=== PATIENT | male | born 1940 | race Caucasian/White ===

== ENCOUNTER 2019-06-15 22:11 | Outpatient (REF) | payer MEDICARE, SELFPAY ==
[2019-06-16 08:39] LABS: Anion Gap 8.9 mmol/L (3-11); BUN 22 mg/dL (7-18); CO2 30.1 mmol/L (21.0-32.0); CREATININE 0.83 mg/dL (0.70-1.30); Calcium 9.1 mg/dL (8.5-10.1); Calculated LDL 106 mg/dL; Chloride 102 mmol/L (98-107); Cholesterol 192 mg/dL (50-200); Glucose 92 mg/dL (70-100); HDL Cholesterol 55 mg/dL (40-60); Potassium 4.3 mmol/L (3.5-5.1); Sodium 141 mmol/L (136-145); Triglyceride 158 mg/dL (30-150)
== END 2019-06-15 22:31 ==
LOC: NCHCN 22:11
PROVIDERS: PCP Internal Medicine; Visit Provider Internal Medicine
DX: I10 Essential (primary) hypertension (principal); Z13.6 Encounter for screening for cardiovascular disorders
CPT/HCPCS: 80048; 80061

== ENCOUNTER 2019-07-04 16:06 | Outpatient (REF) | payer MEDICARE, SELFPAY | END 2019-07-04 16:26 | LOC: NCHCN 16:06 | PROVIDERS: PCP Internal Medicine; Visit Provider Internal Medicine | DX: R31.9 Hematuria, unspecified (principal) | CPT/HCPCS: 87086 ==

== ENCOUNTER 2019-12-30 10:42 | Outpatient (REF) | payer MEDICARE, SELFPAY ==
[2019-12-30 22:11] LABS: Hemoglobin A1C 5.7 % (3.8-5.6)
[2019-12-30 22:18] LABS: Folate 7.4 ng/mL (8.6-20.0); Vitamin B12 592 pg/mL (193-986)
== END 2019-12-30 11:02 ==
LOC: NCHCN 10:42
PROVIDERS: PCP Internal Medicine; Visit Provider Internal Medicine
DX: R73.09 Other abnormal glucose (principal); R41.3 Other amnesia; R26.9 Unspecified abnormalities of gait and mobility
CPT/HCPCS: 82607; 82746; 83036

== ENCOUNTER 2021-01-21 13:18 | Outpatient (REF) | payer MEDICARE, MEDICAID, SELFPAY ==
[2021-01-21 13:34] LABS: Abs Immature Grans 0.02 10^3/uL (0.0-0.06); Absolute Basophil Count 0.02 10^3/uL (0.0-0.2); Absolute Eosinophil Count 0.22 10^3/uL (0.0-0.7); Absolute Lymphocyte Count 1.01 10^3/uL (1.2-3.4); Absolute Monocyte Count 0.31 10^3/uL (0.1-0.8); Basophils % 0.6; Eosinophils % 6.3; HCT 45.6 % (40.0-50.0); HGB 15.1 g/dL (13.5-17.5); Immature Grans % 0.6; Lymphocytes % 28.9; MCHC 33.1 % (32.0-36.0); MCV 90.5 fL (80-95); MPV 10.3 fL (8.0-11.0); Monocytes % 8.9; Neutrophils % 54.7; Nucleated RBC 0 %; Platelet Count 171 10^3/uL (130-400); RBC 5.04 10^6/uL (4.36-5.78); RDW 12.9 % (11.8-14.1); RDW-SD 42.3 fL
[2021-01-21 13:35] LABS: Absolute Neutrophil Count 1.91 10^3/uL (1.2-6.7)
[2021-01-21 14:37] LABS: Anion Gap 10.1 mmol/L (3-11); BUN 19 mg/dL (7-18); CO2 28.9 mmol/L (21.0-32.0); CREATININE 0.9 mg/dL (0.70-1.30); Calcium 9.1 mg/dL (8.5-10.1); Chloride 102 mmol/L (98-107); Glucose 95 mg/dL (74-106); Potassium 4.9 mmol/L (3.5-5.1); Sodium 141 mmol/L (136-145); Vitamin B12 687 pg/mL (193-986)
[2021-01-21 14:43] LABS: Folate > 20.0 ng/mL (8.6-20.0)
== END 2021-01-21 13:19 | disposition home or self-care (01) ==
LOC: NCHCN 13:18
PROVIDERS: PCP Internal Medicine; Visit Provider Internal Medicine
DX: I10 Essential (primary) hypertension (principal); D52.9 Folate deficiency anemia, unspecified
CPT/HCPCS: 80048; 82607; 82746; 85025

== ENCOUNTER 2022-01-30 17:11 | Outpatient (REF) | payer MEDICARE, MEDICAID, SELFPAY ==
[2022-01-30 14:39] LABS: Abs Immature Grans 0.03 10^3/uL (0.0-0.06); Absolute Basophil Count 0.02 10^3/uL (0.0-0.2); Absolute Eosinophil Count 0.12 10^3/uL (0.0-0.7); Absolute Lymphocyte Count 1.28 10^3/uL (1.2-3.4); Absolute Monocyte Count 0.27 10^3/uL (0.1-0.8); Absolute Neutrophil Count 1.95 10^3/uL (1.2-6.7); Basophils % 0.5; Eosinophils % 3.3; HCT 41.5 % (40.0-50.0); HGB 14.6 g/dL (13.5-17.5); Immature Grans % 0.8; Lymphocytes % 34.9; MCH 29.7 pg (27.0-33.0); MCHC 35.2 % (32.0-36.0); MCV 84 fL (80-95); Monocytes % 7.4; Neutrophils % 53.1; Platelet Count 146 10^3/uL (130-400); RBC 4.92 10^6/uL (4.36-5.78); RDW 12.8 % (11.8-14.1); RDW-SD 39.1 fL; WBC 3.67 10^3/uL (4.4-10.8)
[2022-01-30 14:49] LABS: Anion Gap 10.4 mmol/L (3-11); BUN 22 mg/dL (7-18); CO2 28.6 mmol/L (21.0-32.0); CREATININE 1.2 mg/dL (0.70-1.30); Calcium 8.7 mg/dL (8.5-10.1); Chloride 100 mmol/L (98-107); Estimated GFR 58.26 (mL/min/1.73m2); Glucose 116 mg/dL (74-106); Potassium 4.3 mmol/L (3.5-5.1); Sodium 139 mmol/L (136-145)
== END 2022-01-30 17:12 | disposition home or self-care (01) ==
LOC: NCHCN 17:11
PROVIDERS: PCP Internal Medicine; Visit Provider Internal Medicine
DX: I10 Essential (primary) hypertension (principal); D52.9 Folate deficiency anemia, unspecified; R56.9 Unspecified convulsions
CPT/HCPCS: 80048; 85025

== ENCOUNTER 2022-10-17 12:51 | Outpatient (REF) | payer MEDICARE, MEDICAID, SELFPAY ==
[2022-10-17 14:04] LABS: Abs Immature Grans 0.01 10^3/uL (0.0-0.06); Absolute Eosinophil Count 0.07 10^3/uL (0.0-0.7); Absolute Lymphocyte Count 0.82 10^3/uL (1.2-3.4); Absolute Monocyte Count 0.19 10^3/uL (0.1-0.8); Absolute Neutrophil Count 1.18 10^3/uL (1.2-6.7); Eosinophils % 3.1; HCT 42.7 % (40.0-50.0); HGB 14.1 g/dL (13.5-17.5); Immature Grans % 0.4; Lymphocytes % 36.1; MCV 85 fL (80-95); MPV 10.1 fL (8.0-11.0); Monocytes % 8.4; Platelet Count 154 10^3/uL (130-400); RBC 5.03 10^6/uL (4.36-5.78); RDW 13.5 % (11.8-14.1); RDW-SD 42.5 fL; WBC 2.27 10^3/uL (4.4-10.8)
[2022-10-17 15:04] LABS: ALT 16 U/L (16-63); AST 22 U/L (15-37); Albumin 4.2 g/dL (3.4-5.0); Alkaline Phosphatase 63 U/L (46-116); Anion Gap 8.5 mmol/L (3-11); BUN 23 mg/dL (7-18); Bilirubin, Total 0.2 mg/dL (0.2-1.0); CO2 28.5 mmol/L (21.0-32.0); CREATININE 0.9 mg/dL (0.70-1.30); Chloride 101 mmol/L (98-107); Folate 5.9 ng/mL (8.6-20.0); Glucose 99 mg/dL (74-106); Potassium 4.4 mmol/L (3.5-5.1); Sodium 138 mmol/L (136-145); Total Protein 7.8 g/dL (6.4-8.2); Vitamin B12 959 pg/mL (193-986)
== END 2022-10-17 12:52 | disposition home or self-care (01) ==
LOC: NCHCN 12:51
PROVIDERS: PCP Internal Medicine; Visit Provider Internal Medicine
DX: I10 Essential (primary) hypertension (principal)
CPT/HCPCS: 80053; 82607; 82746; 85025

== ENCOUNTER 2023-01-14 11:17 | Outpatient (REF) | payer MEDICARE, MEDICAID, SELFPAY ==
[2023-01-14 16:06] LABS: HCT 43.4 % (40.0-50.0); HGB 14.5 g/dL (13.5-17.5); MCH 28.4 pg (27.0-33.0); MCHC 33.4 % (32.0-36.0); MCV 85 fL (80-95); MPV 9.8 fL (8.0-11.0); Platelet Count 161 10^3/uL (130-400); RBC 5.11 10^6/uL (4.36-5.78); RDW 13.6 % (11.8-14.1); RDW-SD 42.3 fL; WBC 3.98 10^3/uL (4.4-10.8)
[2023-01-14 17:56] LABS: Folate > 20.0 ng/mL (8.6-20.0)
== END 2023-01-14 11:18 | disposition home or self-care (01) ==
LOC: NCHCN 11:17
PROVIDERS: PCP Internal Medicine; Visit Provider Internal Medicine
DX: D52.9 Folate deficiency anemia, unspecified (principal)
CPT/HCPCS: 85027; 82746

== ENCOUNTER 2023-12-14 22:32 | Outpatient (REF) | payer MEDICARE, SELFPAY ==
[2023-12-14 23:30] LABS: Abs Immature Grans 0.03 10^3/uL (0.0-0.06); Absolute Basophil Count 0.01 10^3/uL (0.0-0.2); Absolute Eosinophil Count 0.09 10^3/uL (0.0-0.7); Absolute Lymphocyte Count 1.27 10^3/uL (1.2-3.4); Absolute Monocyte Count 0.33 10^3/uL (0.1-0.8); Absolute Neutrophil Count 1.84 10^3/uL (1.2-6.7); Basophils % 0.3; Eosinophils % 2.5; HCT 36.5 % (40.0-50.0); HGB 12.1 g/dL (13.5-17.5); Immature Grans % 0.8; Lymphocytes % 35.6; MCH 28.7 pg (27.0-33.0); MCHC 33.2 % (32.0-36.0); MCV 87 fL (80-95); MPV 10.7 fL (8.0-11.0); Monocytes % 9.2; Neutrophils % 51.6; Platelet Count 141 10^3/uL (130-400); RBC 4.22 10^6/uL (4.36-5.78); RDW-SD 44.3 fL; WBC 3.57 10^3/uL (4.4-10.8)
[2023-12-14 23:38] LABS: ALT 21 U/L (16-63); AST 17 U/L (15-37); Albumin 3.6 g/dL (3.4-5.0); Alkaline Phosphatase 68 U/L (46-116); Anion Gap 6.7 mmol/L (3-11); BUN 19 mg/dL (7-18); Bilirubin, Total 0.2 mg/dL (0.2-1.0); CO2 31.3 mmol/L (21.0-32.0); CREATININE 0.9 mg/dL (0.70-1.30); Calcium 8.2 mg/dL (8.5-10.1); Chloride 104 mmol/L (98-107); Estimated GFR 85.27 (mL/min/1.73m2); Glucose 119 mg/dL (74-106); Potassium 4.2 mmol/L (3.5-5.1); Sodium 142 mmol/L (136-145); Total Protein 6.9 g/dL (6.4-8.2)
[2023-12-14 23:45] LABS: Hemoglobin A1C 5.7 % (<5.7)
== END 2023-12-14 22:33 | disposition home or self-care (01) ==
LOC: NCHCN 22:32
PROVIDERS: PCP Internal Medicine; Visit Provider Internal Medicine
DX: R73.09 Other abnormal glucose (principal); R56.9 Unspecified convulsions; E46 Unspecified protein-calorie malnutrition
CPT/HCPCS: 80053; 83036; 85025

== ENCOUNTER 2024-01-26 14:59 | Outpatient (REF) | payer MEDICARE, SELFPAY ==
[2024-01-26 17:01] LABS: HGB 12.2 g/dL (13.5-17.5); MCH 28.8 pg (27.0-33.0); MCV 88 fL (80-95); MPV 10.4 fL (8.0-11.0); RBC 4.23 10^6/uL (4.36-5.78); RDW 13.6 % (11.8-14.1); RDW-SD 43.2 fL; Reticulocyte 1.1 % (0.5-2.4); WBC 2.47 10^3/uL (4.4-10.8)
[2024-01-26 17:40] LABS: Anion Gap 3.1 mmol/L (3-11); BUN 13 mg/dL (7-18); CO2 30.9 mmol/L (21.0-32.0); CREATININE 0.9 mg/dL (0.70-1.30); Calcium 8.1 mg/dL (8.5-10.1); Chloride 105 mmol/L (98-107); Estimated GFR 85.27 (mL/min/1.73m2); Ferritin 101 ng/mL (26-388); Glucose 98 mg/dL (74-106); Potassium 3.8 mmol/L (3.5-5.1); Sodium 139 mmol/L (136-145); Vitamin B12 847 pg/mL (193-986)
[2024-01-26 17:52] LABS: Iron 40 ug/dL (65-175); Total Iron Binding Capacity 228 ug/dL (250-450); Transferrin Sat 18 % (20-55)
[2024-01-26 17:53] LABS: Hemoglobin A1C 5.8 % (<5.7)
[2024-01-26 17:59] LABS: Platelet Count 100 10^3/uL (130-400)
[2024-01-26 18:00] LABS: Absolute Basophil Count 0.02 10^3/uL (0.0-0.2); Absolute Eosinophil Count 0.17 10^3/uL (0.0-0.7); Absolute Lymphocyte Count 1.16 10^3/uL (1.2-3.4); Absolute Monocyte Count 0.35 10^3/uL (0.1-0.8); Absolute Neutrophil Count 0.77 10^3/uL (1.2-6.7); Atypical Lymphocytes % 5 %; Bands % 6 %; Diff Comment Manual Differential; RBC Morphology Normal
== END 2024-01-26 15:00 | disposition home or self-care (01) ==
LOC: LBN 14:59
PROVIDERS: PCP Internal Medicine; Visit Provider Internal Medicine
DX: D52.9 Folate deficiency anemia, unspecified (principal)
CPT/HCPCS: 80048; 82607; 82728; 83036; 83540; 83550; 85025; 85045

== ENCOUNTER 2024-02-26 15:45 | Outpatient (REF) | payer MEDICARE, SELFPAY ==
[2024-02-26 16:15] LABS: Abs Immature Grans 0.02 10^3/uL (0.0-0.06); Absolute Eosinophil Count 0.14 10^3/uL (0.0-0.7); Absolute Lymphocyte Count 1.08 10^3/uL (1.2-3.4); Absolute Monocyte Count 0.48 10^3/uL (0.1-0.8); Eosinophils % 3.6 %; HCT 37.8 % (40.0-50.0); HGB 12.5 g/dL (13.5-17.5); Immature Grans % 0.5 %; Lymphocytes % 27.6 %; MCH 28.3 pg (27.0-33.0); MCHC 33.1 % (32.0-36.0); MCV 86 fL (80-95); MPV 9.8 fL (8.0-11.0); Monocytes % 12.2 %; Neutrophils % 56.1 %; Platelet Count 109 10^3/uL (130-400); RBC 4.42 10^6/uL (4.36-5.78); RDW 13.4 % (11.8-14.1); RDW-SD 41.9 fL; WBC 3.92 10^3/uL (4.4-10.8)
== END 2024-02-26 15:46 | disposition home or self-care (01) ==
LOC: NCHCN 15:45
PROVIDERS: PCP Internal Medicine; Visit Provider Internal Medicine
DX: D52.9 Folate deficiency anemia, unspecified (principal)
CPT/HCPCS: 82746; 85025

== ENCOUNTER 2024-02-29 16:22 | Outpatient (REF) | payer MEDICARE, SELFPAY ==
[2024-02-29 15:57] LABS: Folate 13.5 ng/mL (8.6-20.0)
== END 2024-02-29 16:23 | disposition home or self-care (01) ==
LOC: NCHCN 16:22
PROVIDERS: PCP Internal Medicine; Visit Provider Internal Medicine
DX: D52.9 Folate deficiency anemia, unspecified (principal); D61.818 Other pancytopenia
CPT/HCPCS: 82746

== ENCOUNTER 2024-06-06 19:10 | Outpatient (REF) | payer MEDICARE, SELFPAY ==
[2024-06-06 19:12] LABS: Abs Immature Grans 0.02 10^3/uL (0.0-0.06); Absolute Basophil Count 0.02 10^3/uL (0.0-0.2); Absolute Eosinophil Count 0.16 10^3/uL (0.0-0.7); Absolute Lymphocyte Count 1.31 10^3/uL (1.2-3.4); Absolute Neutrophil Count 1.92 10^3/uL (1.2-6.7); Basophils % 0.5 %; Eosinophils % 4.2 %; HCT 39.9 % (40.0-50.0); Immature Grans % 0.5 %; Lymphocytes % 34.2 %; MCH 28.6 pg (27.0-33.0); MCHC 32.6 % (32.0-36.0); MCV 88 fL (80-95); MPV 10.7 fL (8.0-11.0); Monocytes % 10.4 %; Neutrophils % 50.2 %; Platelet Count 141 10^3/uL (130-400); RBC 4.55 10^6/uL (4.36-5.78); RDW 13.6 % (11.8-14.1); RDW-SD 43.6 fL; WBC 3.83 10^3/uL (4.4-10.8)
--- OUTSIDE RECORDS SUMMARY | 2024-06-06 19:13 | XMS_ITS | Encounter Summary ---
Author Organization [facility] Address [address] [place] [address] Care Team Providers Care Track Watchman Name Role Phone John Cee MD Primary Care Provider Unav ailable Reason for Visit * Reason Onset Date Comments Other 01/13/2018 Encounter Details Date Type Department Care Team (Late st Contact Info) Description 01/13/2018 Refill [facility] Ophthalmology - [id number] [place] [address] Eduardo Ha MD [address] [facility], [facility] [address] [place] [phone] Other Social History Tobacco Use Types Packs/Day Years Used Date Smoking Tobacco: Former Cigarettes 0 02/28/1991 - 02/28/2011 Smokeless Tobacco: Never Alcohol Use Standard Drinks/Week Comments No 0 (1 standard drink = 0.6 oz pur e alcohol) Sex and Gender Information Value Date Recorded Sex Assigned at Not on file Gender Identity Not on file Sexual Orientation Not on file documented as of this encounter Functional Status Cognitive Status Response Date of Assessm ent Because of a physical, menta l, or emotional condition, do you have serious difficulty concentrating, remembering, or making decisions? (5 years old or older) Yes 02/11/2012 documented as of this encounter Ordered Prescriptions Prescription Sig Dispensed Refills Start Date End Da te acetaZOLAMIDE (DIAMOX) 250 mg tablet Take 500 mg now and take 500 mg again at 700 pm. 4 Tab 01/14/2018 01/14/2018 documented in this encounter Miscellaneous Notes * Telephone Encounter - Luis Enrique Hollis RN - 01/13/2018 1432 EDT Called [facility] in [place]. Called in 500 mg now and 500 mg for 7pm tonight. Called patient. Stated we had called in the RX to the [facility] in [place]. I was not rebecca about directions so I gave him the phone number. Also went of directions of the Diamox stating her needed to take 2 tables now and 2 tablets again at 7pm. He voiced understanding. Did mention that Dr Ha would make changes if needed at tomorrow visit. Patient was not aware of visit tomorrow. Did tell patient his appointment was at 1015 and this was an urgent matter. Did ask if he had any other questions. He said no and had stated he would be there at tomorrows appointment. * Telephone Encounter - Luis Enrique Hollis RN - 01/13/2018 1406 EDT Called [facility] in [place] and they do not have any in stock but they told me that the [facility] had some. * Telephone Encounter - Patience Mann - 01/13/[address] Ramírez is calling to talk to Dr. Ha, Dr. Ha is in the OR today. Dr. Ramírez said patient had anti vgef injection with Lyn on Thursday. IOP in 50's today, when patient sees us his IOP is usually in the low 30s, patient is CF's with us at 4'. Called Dr. Ha, per Dr. Ha he can see patient tomorrow morning, and to start diamox tonight. 500mg once now and 500 mg around [address] Ramírez wants patient to be seen today he should follow up with Dr. Nicholson. Spoke to Dr. Ramírez and he will have patient come in tomorrow to see Dr. Ha. Dr. Ramírez wasn't sure if he could prescribe and per Dr. Ha if that's the case we can call it in. Please call in Diamox 500 mg once NOW and once at 7PM, per Luis Enrique HERNANDEZ okay to do so. * Telephone Encounter - Renetta Malone - 01/13/2018 1327 EDT Patient has a pressure of 50 today. He is status post injection. Call was transferred to Patience. documented in this encounter Plan of Treatment Not on file documented as of this encounter Visit Diagnoses Not on filedocumented in this encounter Care Teams Track Watchman Relationship Specialty Start Date End Date John Cee MD PCP - General 06/07/15 documented as of this encounter
--- OUTSIDE RECORDS SUMMARY | 2024-06-06 19:13 | XMS_ITS | Encounter Summary ---
Author Organization [facility] Address [address] [place] [address] Care Team Providers Care Machine Feeder Name Role Phone John Cee MD Primary Care Provider Unav ailable Reason for Visit * Reason Onset Date Comments Medications Refill 11/23/2017 Brimonidine, Dorzolanide, and Latauoprost 2 bottle if posible. Encounter Details Date Type Department Care Team (Late st Contact Info) Description 11/23/2017 Refill [facility] Ophthalmology - [id number] [place] [address] Eduardo Ha MD 111 [facility], [facility] [address] [place] [address] Medications Refill (Brimonidine, Dorzolanide, and Latauoprost 2 bottle if posible. ) Social History Tobacco Use Types Packs/Day Years [...] Dispensed Refills Start Date End Da te latanoprost (XALATAN) 0.005 % ophthalmic solution Place 1 Drop into the left eye at bedtime. 2 Bottle 5 11/24/2017 01/14/2018 dorzolamide-timolol (COSOPT) 22.3-6.8 mg/mL ophthalmic solution Place 1 Drop into the left eye 2 times daily. 2 Bottle 5 11/24/2017 01/14/2018 brimonidine (ALPHAGAN) 0.2 % ophthalmic solution Place 1 Drop into the left eye 2 times daily. 2 Bottle 5 11/24/2017 01/14/2018 documented in this encounter Miscellaneous Notes * Telephone Encounter - Gutierrez Greco OTA - 11/23/2017 0984 EDT Reached pt on fourth attempt. Pt requests all gtts be re-prescribed 2 bottles at a time. Dorzolamide Timolol was ordered with 11 refills on 08/26/2017. Latanoprost with 11 refills ordered 10/06/2017. The only refill needed is for Brimonidine. If he wants multiple bottles at once, all Rx can be re-ordered in amounts he is requesting. Want to confirm with pt that's what he wants to do, and to let him know that many insurance will often cover up to 3 bottles at a time. According to Dr. Ha's last note: dorz-champ BID OS, brim BID OS, latan QHS OS. documented in this encounter Plan of Treatment Not on file documented as of this encounter Visit Diagnoses Not on filedocumented in this encounter Discontinued Medications Medication Sig Discontinue Reason Start Date End Da te brimonidine (ALPHAGAN) 0.2 % ophthalmic solution Place 1 Drop into the left eye 2 times daily. Dose adjustment 08/27/2017 11/24/2017 dorzolamide-timolol (COSOPT) 22.3-6.8 mg/mL ophthalmic solution Place 1 Drop into the left eye 2 times daily. Dose adjustment 08/26/2017 11/24/2017 latanoprost (XALATAN) 0.005 % ophthalmic solution Place 1 Drop into the left eye at bedtime. Dose adjustment 10/06/2017 11/24/2017 documented as of this encounter Care Teams Machine Feeder Relationship Specialty Start Date End Date John Cee MD PCP - General 06/07/15 documented as of this encounter
--- OUTSIDE RECORDS SUMMARY | 2024-06-06 19:13 | XMS_ITS | Encounter Summary ---
Author Organization [facility] Address [address] [place] [address] Care Team Providers Care Poultry Dressing Worker Name Role Phone John Cee MD Primary Care Provider Unav ailable Encounter Details Date Type Department Care Team (Late st Contact Info) Description 02/20/2020 Lab Requisition [facility] Pathology & Laboratory Medicine - [address] [id number] Outr Resulting Lab, Provider Social History Tobacco Use Types Packs/Day Years [...] Yes 02/11/2012 documented as of this encounter Plan of Treatment Not on file documented as of this encounter Procedures Procedure Name Priority Date/Time Associated Diagnosis Comments VITAMIN B12 Routine 02/20/2020 12:23 EDT documented in this encounter Results * VITAMIN B12 (02/20/2020 12:23 EDT) Vitamin B12 703 211 - 911 pg/mL 02/21/2020 9:22 EDT [facility] Blood VENOUS BLOOD / Unknown 02/20/2020 12:23 EDT 02/20/2020 22:13 EDT Provider Outr Resulting Lab CHEMISTRY & BLOOD GAS ORDERABLES [facility] [address] [place] [address] documented in this encounter Visit Diagnoses Not on filedocumented in this encounter Care Teams Poultry Dressing Worker Relationship Specialty Start Date End Date John Cee MD PCP - General 06/07/15 documented as of this encounter
--- OUTSIDE RECORDS SUMMARY | 2024-06-06 19:13 | XMS_ITS | Encounter Summary ---
Author Organization [facility] Address [address] [place] [address] Care Team Providers Care Chuck Tender Name Role Phone John Cee MD Primary Care Provider Unav ailable Reason for Visit * Reason Onset Date Comments Other 01/27/2019 Encounter Details Date Type Department Care Team (Late st Contact Info) Description 01/27/2019 Telephone [phone] [place], [place] [phone] Eduardo Ha MD [address] [place] [address], [facility] [address] [place] [address] Other Social History Tobacco Use Types Packs/Day [...] Yes 02/11/2012 documented as of this encounter Miscellaneous Notes * Telephone Encounter - Renetta Malone - 01/27/2019 0956 EDT Called to confirm we received the fax they sent this morning. Jojo said it was received and will bescanned. They also wanted Dr. Ha to know that Dr. Ramírez is happy to see the patient at any time, even sooner than the 4-5 month follow up. documented in this encounter Plan of Treatment Not on file documented as of this encounter Visit Diagnoses Not on filedocumented in this encounter Care Teams Chuck Tender Relationship Specialty Start Date End Date John Cee MD PCP - General 06/07/15 documented as of this encounter
--- OUTSIDE RECORDS SUMMARY | 2024-06-06 19:13 | XMS_ITS ---
Author Organization Unknown Address [address] [place] [phone] Phone Care Team Providers Care Cellophane Tester Name Role Phone SOPHIE Candelaria Attending Unavailable Results CT HEAD WO CONTRAST - Comple jeri: 04/29/2024 13:33 LOINC: RADIOLOGY [place], [place] [address] RADIOLOGY FOOD PREP WORKER REPORT Patient Name: CATERINA LEDEZMA MRN: Sex: : Age: [id number] M [id number] Account: Accession: Admit: StayType: [id number] 04/29/2024 O Ordered: Order ID: Submitted: Ordering Provider: 04/29/2024 13:06 [id number] [facility] Completed: Technologist: Resulted: 04/29/2024 13:13 LAWRENCE 04/29/2024 14:16 EXAMINATION: CT HEAD WO CONTRAST CLINICAL HISTORY: Reason for Head: HALLUCINATIONS Add'l Info: TECHNIQUE: CT head performed without intravenous contrast administration. COMPARISON: 12/27/2019 FINDINGS: CSF spaces appear mildly increased in keeping with a generalized atrophy, marginally more than expected for age. Mild hypodensity of the hemispheric white matter occurs, likely chronic ischemic. No acute hemorrhage or mass effect. No recent or remote betzaida cortical infarct. Mucoperiosteal thickening and a small amount of retained secretions occurs at the right maxillary sinus. Mastoids and middle ears are aerated. Skull intact. IMPRESSION: Involutional changes, not meaningfully changed since the prior 12/27/2019. No acute hemorrhage or mass effect. Low-grade right maxillary sinus disease, also not meaningfully changed since prior. Thank you for letting us participate in the care of this patient. If you are a health care provider and have any questions regarding this report, please contact the number below. For patients who have questions please contact the health life care planner that requested your imaging first. Social History Type Status Start Date End Date Code Code Syst em Smoking History Current some day smoker [id number] SNOMED CT Sex Male Medications Medication Start Date End Date Route Frequency Dose Code Code System Medication Instructions Home Meds levETIRAcetam 250MG Oral Tablet 02/03/2019 Unknown ORAL TWICE A DAY 500 MILLIGRAMS 665903 RxNorm TAKE 500 MILLIGRAMS ORAL TWICE A DAY Lisinopril 5MG Oral Tablet 02/03/2019 Unknown ORAL DAILY 5 MILLIGRAMS 024319 RxNorm TAKE 5 MILLIGRAMS ORAL DAILY OCUVITE LUTEIN CAPSULE 02/03/2019 Unknown ORAL DAILY 1 CAPSULE RxNorm TAKE 1 CAPSULE ORAL DAILY Assessment You had the following problems:SEIZUREASPIRATION PNEUMONIA Hospital Discharge Instructions Should you have any questions prior to discharge, please contact a member of your healthcare team. If you have left the hospital and have any questions, please contact your primary care physician. Reason For Referral No Data Found Problems Problem Start Date Resolved Date Status Code Code System SEIZURE active 66357480 SNOMED-CT ASPIRATION PNEUMONIA active 783574621 SNOMED-CT Allergies and Adverse Reactions Allergy Substance Reaction Severity Start Date Concern Status Code Code System PENICILLINS (CLASS) Hives (SNOMED-CT: 961905185) Moderate Active 7957246 SNOMED-CT Plan of Treatment CT HEAD W/O CONTRAST 04/29/2024 Encounters Encounter Diagnosis Start Date Code Code Sys tem Acute maxillary sinusitis 04/29/2024 90227072 SN OMED-CT Personal Care Team Section Performer Name Performer Role Active Date Inactive Da te
--- OUTSIDE RECORDS SUMMARY | 2024-06-06 19:13 | XMS_ITS | Encounter Summary ---
Author Organization [facility] Address [address] [place] [address] Care Team Providers Care Micro Computer Data Processor Name Role Phone John Cee MD Primary Care Provider Unav ailable Reason for Visit * Reason Onset Date Comments Medications Refill 02/19/2018 Encounter Details Date Type Department Care Team (Late st Contact Info) Description 02/19/2018 Refill [facility] Ophthalmology - [address] [address] Eduardo Ha MD [address] [place] [address], [address] [place] [phone] Medications Refill Social History Tobacco Use Types Packs/Day Years [...] Dispensed Refills Start Date End Da te brimonidine (ALPHAGAN) 0.2 % ophthalmic solution Place 1 Drop into the left eye 2 times daily. 2 Bottle 5 02/19/2018 04/05/2018 documented in this encounter Miscellaneous Notes * Telephone Encounter - Jovita Deleon - 02/19/2018 0858 EDT Medication Refill Medication(s) Requested: Brimonidine Pharmacy: [facility] Is patient out of medication? Yes 30 day supply/ 90 day supply: 90day Follow up appointment: Please remind the patient that it can take 24-48 hours for the med to be refilled, and to call the pharmacy to make sure the refill is available before driving there. documented in this encounter Plan of Treatment Not on file documented as of this encounter Visit Diagnoses Not on filedocumented in this encounter Discontinued Medications Medication Sig Discontinue Reason Start Date End Da te brimonidine (ALPHAGAN) 0.2 % ophthalmic solution Place 1 Drop into the left eye 2 times daily. Reorder 01/14/2018 02/19/2018 documented as of this encounter Care Teams Micro Computer Data Processor Relationship Specialty Start Date End Date John Cee MD PCP - General 06/07/15 documented as of this encounter
--- OUTSIDE RECORDS SUMMARY | 2024-06-06 19:13 | XMS_ITS | Encounter Summary ---
Author Organization [facility] Address [address] [place] [address] Care Team Providers Care Orthotist Name Role Phone John Cee MD Primary Care Provider Unav ailable Reason for Visit * Reason Onset Date Comments Medications Refill 04/05/2018 Encounter Details Date Type Department Care Team (Late st Contact Info) Description 04/05/2018 Refill [facility] Ophthalmology - [address] [address] Eduardo Ha MD [address] [place] [address], [address] [place] [phone] Medications Refill Social History Tobacco Use Types [...] eye 2 times daily. 2 Bottle 5 04/05/2018 05/24/2018 dorzolamide-timolol (COSOPT) 22.3-6.8 mg/mL ophthalmic solution Place 1 Drop into the left eye 2 times daily. 2 Bottle 5 04/05/2018 07/14/2018 latanoprost (XALATAN) 0.005 % ophthalmic solution Place 1 Drop into the left eye at bedtime. 2 Bottle 5 04/05/2018 05/24/2018 documented in this encounter Miscellaneous Notes * Telephone Encounter - Luis Enrique Hollis RN - 04/05/2018 0919 EDT Doctor: Eduardo Ha MD Requested Medication(s): Latanoprost, Brimonidine, and Cosopt. Last appointment date: 01/29/18? Last appointment note regarding medication:'Gtts: dorz-timolol BID OS, brimonidine BID OS, latanoprost QHS OS' Next appointment date: Unsure * Telephone Encounter - Patience Mann - 04/05/2018 0917 EDT Patient needs refill for brimonidine and dorzolamide-timolol, and lataprost/ documented in this encounter Plan of Treatment Not on file documented as of this encounter Visit Diagnoses Not on filedocumented in this encounter Discontinued Medications Medication Sig Discontinue Reason Start Date End Da te latanoprost (XALATAN) 0.005 % ophthalmic solution Place 1 Drop into the left eye at bedtime. Reorder 01/14/2018 04/05/2018 dorzolamide-timolol (COSOPT) 22.3-6.8 mg/mL ophthalmic solution Place 1 Drop into the left eye 2 times daily. Reorder 01/14/2018 04/05/2018 brimonidine (ALPHAGAN) 0.2 % ophthalmic solution Place 1 Drop into the left eye 2 times daily. Reorder 02/19/2018 04/05/2018 documented as of this encounter Care Teams Orthotist Relationship Specialty Start Date End Date John Cee MD PCP - General 06/07/15 documented as of this encounter
--- OUTSIDE RECORDS SUMMARY | 2024-06-06 19:13 | XMS_ITS | Encounter Summary ---
Author Organization [facility] Address [address] [place] [address] Care Team Providers Care Senior Clinical Research Associate Name Role Phone John Cee MD Primary Care Provider Unav ailable Reason for Visit * Reason Onset Date Comments Medications Refill 12/09/2018 Encounter Details Date Type Department Care Team (Late st Contact Info) Description 12/09/2018 Refill [facility] Ophthalmology - [address] [address] Eduardo Ha MD [address] [place] [address], [address] [place] [phone] Medications Refill Social History Tobacco Use Types [...] (ALPHAGAN) 0.2 % ophthalmic solution Place 1 drop into the left eye 2 times daily. 10 mL 3 12/09/2018 01/10/2019 dorzolamide-timolol (COSOPT) 22.3-6.8 mg/mL ophthalmic solution Place 1 drop into the left eye 2 times daily. 2 Bottle 5 12/09/2018 01/10/2019 latanoprost (XALATAN) 0.005 % ophthalmic solution Place 1 drop into the left eye at bedtime. 2 Bottle 3 12/09/2018 07/18/2019 documented in this encounter Miscellaneous Notes * Telephone Encounter - Nadege Oneill - 12/21/2018 1238 EDT Spoke with the patient he is scheduled 01/10/19 @ 12:45pm * Telephone Encounter - Luis Enrique Hollis RN - 12/09/2018 0932 EDT Doctor: Eduardo Ha MD Requested Medication(s): Brimonidine, Dorzolamide, and latanoprsot Last appointment date: 01/14/18 Last appointment note regarding medication:'dorz-timolol BID OS, brimonidine BID OS, latanoprost QHS OS' Next appointment date: overdue * Telephone Encounter - Kristin Emerson - 12/09/2018 0906 EDT Medication(s) Requested: Brimonidine, Dorzotamide, Latanoprost Pref[facility] Pharmacy: [facility] Is patient out of medication? Yes Last Refill Date: Unknown Last Visit Date with Ordering Provider: 01/29/2018 Next Non-Acute Visit Date Scheduled with Care Team: Kristin Emerson 12/09/2018 9:06 documented in this encounter Plan of Treatment Not on file documented as of this encounter Visit Diagnoses Not on filedocumented in this encounter Discontinued Medications Medication Sig Discontinue Reason Start Date End Da te latanoprost (XALATAN) 0.005 % ophthalmic solution Place 1 Drop into the left eye at bedtime. Reorder 07/14/2018 12/09/2018 dorzolamide-timolol (COSOPT) 22.3-6.8 mg/mL ophthalmic solution Place 1 Drop into the left eye 2 times daily. Reorder 07/14/2018 12/09/2018 brimonidine (ALPHAGAN) 0.2 % ophthalmic solution Place 1 Drop into the left eye 2 times daily. Reorder 07/14/2018 12/09/2018 documented as of this encounter Care Teams Senior Clinical Research Associate Relationship Specialty Start Date End Date John Cee MD PCP - General 06/07/15 documented as of this encounter
--- OUTSIDE RECORDS SUMMARY | 2024-06-06 19:13 | XMS_ITS | Encounter Summary ---
Author Organization [facility] Address [address] [place] [address] Care Team Providers Care Flare Breaker Name Role Phone John Cee MD Primary Care Provider Unav ailable Reason for Visit * Reason Onset Date Comments Medications Refill 07/14/2018 Encounter Details Date Type Department Care Team (Late st Contact Info) Description 07/14/2018 Refill [facility] Ophthalmology - [address] [address] Eduardo Ha MD [address] [place] [address], [address] [place] [phone] Medications Refill Social History Tobacco Use Types Packs/Day Years Used Date Smoking Tobacco: Former Cigarettes 0 02/28/1991 - 02/28/2011 Smokeless Tobacco: Never Alcohol Use Standard Drinks/Week Comments No 0 (1 standard drink = 0.6 oz pur e alcohol) Interpersonal Safety Answer Date Record ed Physically Hurt Never 04/01/2020 Verbally Threaten Not on file 04/01/2020 Sex and Gender Information Value Date Recorded [...] left eye at bedtime. 2 Bottle 3 07/14/2018 12/09/2018 dorzolamide-timolol (COSOPT) 22.3-6.8 mg/mL ophthalmic solution Place 1 Drop into the left eye 2 times daily. 2 Bottle 5 07/14/2018 12/09/2018 brimonidine (ALPHAGAN) 0.2 % ophthalmic solution Place 1 Drop into the left eye 2 times daily. 10 mL 3 07/14/2018 12/09/2018 documented in this encounter Plan of Treatment Not on file documented as of this encounter Visit Diagnoses Not on filedocumented in this encounter Discontinued Medications Medication Sig Discontinue Reason Start Date End Da te brimonidine (ALPHAGAN) 0.2 % ophthalmic solution Place 1 Drop into the left eye 2 times daily. Reorder 05/24/2018 07/14/2018 dorzolamide-timolol (COSOPT) 22.3-6.8 mg/mL ophthalmic solution Place 1 Drop into the left eye 2 times daily. Reorder 04/05/2018 07/14/2018 latanoprost (XALATAN) 0.005 % ophthalmic solution Place 1 Drop into the left eye at bedtime. Reorder 05/24/2018 07/14/2018 documented as of this encounter Care Teams Flare Breaker Relationship Specialty Start Date End Date John Cee MD PCP - General 06/07/15 documented as of this encounter
--- OUTSIDE RECORDS SUMMARY | 2024-06-06 19:13 | XMS_ITS | Encounter Summary ---
Author Organization [facility] Address [address] [place] [address] Care Team Providers Care Identification And Records Commander Name Role Phone John Cee MD Primary Care Provider Unav ailable Reason for Visit * Reason Comments Eye Problem F/U 3 M: IOP both ey es, Right eye VA slightly worse but has new glasses on the way from recent O.D. Exam, no pain, no pain, no flashes, no floaters Medication Management PT NEEDS REFILLS, dorz-champ BID left eye, brim BID left eye, latan QHS left eye, pt took diamox 250 BID on (01-13-18) per phone triage directions Encounter Details Date Type Department Care Team (Late st Contact Info) Description 01/14/2018 10:15 EDT Office Visit [facility] Ophthalmology - [address] [address] Eduardo Ha MD [address] [facility], [address] [place] [address] Discharge Disposition: Auto Discharge Social History Tobacco Use Types Packs/Day Years [...] Yes 02/11/2012 documented as of this encounter Discharge Diagnoses Diagnosis H40.52X4 Glaucoma sec to oth eye disord, l eye, indeterminate stage-H40.52X4[ICD-10-CM] Z96.1 Presence of intraocular lens-Z96.1[ICD-10-CM] documented in this encounter Ordered Prescriptions Prescription Sig Dispensed Refills Start Date End Da te acetaZOLAMIDE (DIAMOX SEQUELS) 500 mg capsule Take 1 Cap by mouth daily. Take in the automobile service advisor. 10 Cap 01/14/2018 01/10/2019 latanoprost (XALATAN) 0.005 % ophthalmic solution Place 1 Drop into the left eye at bedtime. 2 Bottle 5 01/14/2018 04/05/2018 dorzolamide-timolol (COSOPT) 22.3-6.8 mg/mL ophthalmic solution Place 1 Drop into the left eye 2 times daily. 2 Bottle 5 01/14/2018 04/05/2018 brimonidine (ALPHAGAN) 0.2 % ophthalmic solution Place 1 Drop into the left eye 2 times daily. 2 Bottle 5 01/14/2018 02/19/2018 documented in this encounter Discharge Disposition Disposition Code Departure Means Destination Auto Discharge documented in this encounter Progress Notes * Eduardo Ha MD - 01/14/2018 1015 EDT Chief Complaint Patient presents with ??? Eye Problem F/U 3 M: IOP both eyes, Right eye VA slightly worse but has new glasses on the way from recent O.D.Exam, no pain, no pain, no flashes, no floaters ??? Medication Management PT NEEDS REFILLS, dorz-champ BID left eye, brim BID left eye, latan QHS left eye, pt took diamox 250 BID on (01-13-18) per phone triage directions HPI :The patient is a 77 y.o. male Right Eye: Blurred Vision Left Eye: Loss of Vision Visual Aid: Current Rx Age Location: Left eye Pain: 0 - No pain Quality: Blurry Severity: Severe Duration: Years Timing: Constant Lasts: Continuous Context: Here for IOP check Modifying factors: glaucoma drops Associated Signs & Symptoms: no pain Attestation: ROS Constitutional: ENT/Mouth Cardiovascular: High Blood Pressure Respiratory: NL Gastrointestinal: NL Genitourinary: Musculoskeletal: NL Integumentary: Neurologic: NL Psychiatric: Endocrine: NL Hematologic: NL Immunologic: NL Windshield Technician: Exposures: None Other: Attestation: Allergies include: Penicillins Patient Active Problem List Diagnosis ??? Fall ??? Fracture of cervical vertebra ([facility]) ??? Fracture of left clavicle ??? Macular pucker, left eye Outpatient Prescriptions Marked as Taking for the 01/14/18 encounter (Office Visit) with Nicky Ha MD Medication Sig ??? acetaZOLAMIDE (DIAMOX) 250 mg tablet Take 500 mg now and take 500 mg again at 700 pm. ??? brimonidine (ALPHAGAN) 0.2 % ophthalmic solution Place 1 Drop into the left eye 2 times daily. ??? [DISCONTINUED] brimonidine (ALPHAGAN) 0.2 % ophthalmic solution Place 1 Drop into the left eye 2 times daily. ??? dorzolamide-timolol (COSOPT) 22.3-6.8 mg/mL ophthalmic solution Place 1 Drop into the left eye 2 times daily. ??? [DISCONTINUED] dorzolamide-timolol (COSOPT) 22.3-6.8 mg/mL ophthalmic solution Place 1 Drop into the left eye 2 times daily. ??? latanoprost (XALATAN) 0.005 % ophthalmic solution Place 1 Drop into the left eye at bedtime. ??? [DISCONTINUED] latanoprost (XALATAN) 0.005 % ophthalmic solution Place 1 Drop into the left eyeat bedtime. ??? lisinopril (PRINIVIL, ZESTRIL) 5 mg tablet Take 5 mg by mouth daily. ??? VIT C/VIT E/LUTEIN/MIN/OMEGA-3 (OCUVITE ORAL) Take by mouth daily Past Medical History: Diagnosis Date ??? Cataract ??? Glaucoma ??? Hypertension ??? Seizure ([facility]) November 2006 grand mal seizure, witnessed by son, no recurrence, no Rx Past Surgical History: Procedure Laterality Date ??? CATARACT REMOVAL ??? HEMORRHOID SURGERY ??? INTRAOCULAR LENS PROSTHESIS INSERTION Left Family History Problem Relation Age of Onset ??? Glaucoma Neg Hx ??? Macular Degeneration Neg Hx ??? Retinal Detachment Neg Hx ??? Keratoconus Neg Hx ??? Retinitis Pigmentosa Neg Hx Patient reports that he quit smoking about 6 years ago. He quit after 20.00 years of use. He has never used smokeless tobacco. He reports that he uses illicit drugs, including Marijuana, about once per week. He reports that he does not drink alcohol. Recent HbA1c: No results found for: HGBA1C Base Eye Exam Visual Acuity (Snellen - Linear) Right Left Dist cc 20/25 -2 HM Tonometry (Applanation, 10:36) Right Left Pressure 13 46 Gonioscopy OD: open to CB / SS OS: hazy view, 2 hrs of PAS superior, otherwise open to SS Pupils Dark Light React APD Right 4 3 Brisk None Left APD Extraocular Movement Right Left Result Full Full Neuro/Psych Oriented x3: Yes Mood/Affect: Normal Slit Lamp and Fundus Exam External Exam Right Left External Normal 50% upper lid ptosis Slit Lamp Exam Right Left Lids/Lashes 1+ Blepharitis, punctal ectropion 1+ Blepharitis, punctal ectropion Conjunctiva/Sclera White and quiet Inferotemp SHIVA Cornea Clear Clear, 2+ diffuse SPK, mod edema Anterior Chamber Deep and quiet Deep and quiet Iris Round and reactive Round and reactive, faint NVI Lens 1-2+ NS PCIOL Vitreous Normal Normal Fundus Exam Right Left Disc ? trace NVD C/D Ratio ~0.5 ~0.5 Macula flat, mod drusen flat, moderate drusen, scattered heme Vessels Normal attenuated Refraction Wearing Rx Sphere Cylinder [place] Add Right +0.50 +1.00 008 +3.00 Left +0.50 +0.75 005 +3.00 Type: Bifocal IMPRESSION & PLAN: 1. Neovascular glaucoma of left eye, indeterminate stage -- presented to [facility] in neovascular angle closure 07/14/17 -- now 2 D s/p Avastin OS with renewed OHT, IOP to 50s at optometry yesterday,IOP today 46 -- mild NVI today, angle appears mainly open (though poor view) -- pt is asymptomatic, eye has been comfortable since injection -- as before, D/W pt option for tube shunt for betterIOP control, he declines this, understanding likely continued progressive vision loss and possible blindness -- as before, he agrees that goal to therapy is comfort -- plan: 1. Cont rx as below 2. Add acetazolamide 500 PO QAM x 10 D 3. F/U ~2 W: IOP OU ON: ~0.5 / ~0.5 -- RAPD OS Tmax: XX CCT: Gonio: Open to SS-CBB / open to SS-TM, 2 H PAS superior (01/15) VF: OCT: Surg: none Gtts: dorz-timolol BID OS, brimonidine BID OS, latanoprost QHS OS 2. Central retinal vein occlusion, left -- CRVO 2013, followed by [facility] -- baseline VA prior toNVG 20/200-20/400 range 3. Nuclear sclerosis of right eye -- moderate cataract, follow 4. Pseudophakia of left eye -- stable PCIOL I have reviewed the past medical, family, social and surgical history. I have reviewed the meds, allergies, and problem list. I performed my own HPI and reviewed the ROS. I personally completed the exam. The patient was instructed to call our office or go to emergency room if worse vision, worse symptoms, or new/other concerns arise. Eduardo Ha MD I am scribing for Dr. Ha, while he is performing the service. Eduardo Ha MD documented in this encounter Plan of Treatment Not on file documented as of this encounter Visit Diagnoses Diagnosis Neovascular glaucoma of left eye, indeterminate stage- Primary Nuclear sclerosis of right eye Pseudophakia of left eye Lens replaced by other means documented in this encounter Discontinued Medications Medication Sig Discontinue Reason Start Date End Da te brimonidine (ALPHAGAN) 0.2 % ophthalmic solution Place 1 Drop into the left eye 2 times daily. Reorder 11/24/2017 01/14/2018 dorzolamide-timolol (COSOPT) 22.3-6.8 mg/mL ophthalmic solution Place 1 Drop into the left eye 2 times daily. Reorder 11/24/2017 01/14/2018 latanoprost (XALATAN) 0.005 % ophthalmic solution Place 1 Drop into the left eye at bedtime. Reorder 11/24/2017 01/14/2018 acetaZOLAMIDE (DIAMOX) 250 mg tablet Take 500 mg now and take 500 mg again at 700 pm. 01/14/2018 01/14/2018 documented as of this encounter Eye Exam Visual Acuity (Snellen - Linear) Right eye Left eye Dist cc 20/25 -2 HM Tonometry (Applanation, 10:36) Right eye Left eye Pressure 13 46 Gonioscopy OD: open to CB / SS OS: hazy view, 2 hrs of PAS superior, otherwise open to SS Pupils Dark Light React APD Right eye 4 3 Brisk None Left eye APD Extraocular Movement Right eye Left eye Full Full Neuro/Psych Oriented x3: Yes Mood/Affect: Normal External Exam Right eye Left eye External Normal 50% upper lid pt osis Slit Lamp Exam Right eye Left eye Lids/Lashes 1+ Blepharitis, punctal ectropio n 1+ Blepharitis, punctal ectropion Conjunctiva/Sclera White and quiet Inferotemp SC H Cornea Clear Clear, 2+ diffus e SPK, mod edema Anterior Chamber Deep and quiet Deep and quiet Iris Round and reactive Round and dewayne ctive, faint NVI Lens 1-2+ NS PCIOL Vitreous Normal Normal Fundus Exam Right eye Left eye Disc ? trace NVD C/D Ratio ~0.5 ~0.5 Macula flat, mod drusen flat, moderate drusen, scattered heme Vessels Normal attenuated Wearing Rx Sphere Cylinder Johnson Add Right eye +0.50 +1.00 008 +3.00 Left eye +0.50 +0.75 005 +3.00 Type: Bifocal Care Teams Identification And Records Commander Relationship Specialty Start Date End Date John Cee MD PCP - General 06/07/15 documented as of this encounter
--- OUTSIDE RECORDS SUMMARY | 2024-06-06 19:13 | XMS_ITS | Encounter Summary ---
Author Organization [facility] Address [address] [place] [address] Care Team Providers Care Knit Goods Mender Name Role Phone John Cee MD Primary Care Provider Unav ailable Reason for Visit * Reason Comments Glaucoma Neovascular glaucoma of left eye, indeterminate stage pt here for 1 mos f/u. Pt not c/o any side effects from Diamox. Pt reports VA stable. No eye pain, no ocular irritation. No flashes, no floaters. Medication Management dorz-champ BID OS, b rim BID OS, latan QHS OS, acetazol 500 PO QAM. Encounter Details Date Type Department Care Team (Late st Contact Info) Description 09/11/2017 10:15 EST Office Visit [facility] - [address] [address] Eduardo Ha MD [address] [facility] [address] [place] [address] Discharge Disposition: Auto Discharge Social [...] oth eye disord, l eye, indeterminate stage-H40.52X4[ICD-10-CM] H34.8192 Central retinal vein occlusion, unspecified eye, stable-H34.8192[ICD-10-CM] H25.11 Age-related nuclear cataract, right eye-H25.11[ICD-10-CM] documented in this encounter Discharge Disposition Disposition Code Departure Means Destination Auto Discharge documented in this encounter Progress Notes * Eduardo Ha MD - 09/11/2017 1015 EST Chief Complaint Patient presents with ??? Glaucoma Neovascular glaucoma of left eye, indeterminate stage pt here for 1 mos f/u. Pt not c/o any side effects from Diamox. Pt reports VA stable. No eye pain, no ocular irritation. No flashes, no floaters. ??? Medication Management dorz-champ BID OS, brim BID OS, latan QHS OS, acetazol 500 PO QAM. HPI :The patient is a 77 y.o. male Pt denies recent vision change no recent flashes -- no new floaters denies eye pain -- denies itchiness of eyes denies any recent eye trauma -- systemic health generally stable denies new eye medicines -- increased diamox and feels no side effects Right Eye: Blurred Vision Left Eye: Blurred Vision Visual Aid: Glasses Current Rx Age > 2 years Location: Both eyes Pain: 0 - No pain Quality: Severity: Duration: Months Timing: Constant Lasts: Months Context: Modifying factors: Associated Signs & Symptoms: Attestation: ROS Constitutional: NL ENT/Mouth NL Cardiovascular: High Blood Pressure Respiratory: NL Gastrointestinal: Genitourinary: Musculoskeletal: Integumentary: Neurologic: NL Psychiatric: Endocrine: NL Hematologic: NL Immunologic: Drug Allergy Field Supervisor Seed Production: Exposures: None Other: Attestation: Allergies include: Penicillins Patient Active Problem List Diagnosis ??? Fall ??? Fracture of cervical vertebra ([facility]) ??? Fracture of left clavicle ??? Macular pucker, left eye Outpatient Prescriptions Marked as Taking for the 09/11/17 encounter (Office Visit) with Nicky Ha MD Medication Sig ??? [DISCONTINUED] acetaZOLAMIDE (DIAMOX SEQUELS) 500 mg capsule Take 1 Cap by mouth 2 times daily. ??? brimonidine (ALPHAGAN) 0.2 % ophthalmic solution Place 1 Drop into the left eye 2 times daily. ??? dorzolamide-timolol (COSOPT) 22.3-6.8 mg/mL ophthalmic solution Place 1 Drop into the left eye 2 times daily. ??? latanoprost (XALATAN) 0.005 % ophthalmic solution Place 1 Drop into the left eye at bedtime. ??? lisinopril (PRINIVIL, ZESTRIL) 5 mg tablet Take 5 mg by mouth daily. ??? VIT C/VIT E/LUTEIN/MIN/OMEGA-3 (OCUVITE ORAL) Take by mouth daily Past Medical History: Diagnosis Date ??? Cataract ??? Glaucoma ??? Hypertension ??? Seizure ([facility]) November 2006 grand mal seizure, witnessed by [...] (Snellen - Linear) Right Left Dist cc 20/30 CF at 5' Dist ph cc NI Correction: Glasses Tonometry (Applanation, 10:31) Right Left Pressure 15 32 Neuro/Psych Oriented x3: Yes Mood/Affect: Normal Slit Lamp and Fundus Exam External Exam Right Left External Normal Normal Slit Lamp Exam Right Left Lids/Lashes 1+ Blepharitis, punctal ectropion 1+ Blepharitis, punctal ectropion Conjunctiva/Sclera White and quiet White and quiet Cornea Clear Clear Anterior Chamber Deep and quiet Deep and quiet Iris Round and reactive Round and reactive, no NVI Lens 1-2+ NS PCIOL Vitreous Normal Normal Fundus Exam Right Left Disc ? trace NVD C/D Ratio ~0.5 ~0.5 Macula flat, mod drusen flat, moderate drusen Vessels Normal attenuated Refraction Wearing Rx Sphere Cylinder [place] Add Right +0.50 +1.00 008 +3.00 Left +0.50 +0.75 005 +3.00 Age: 11y Type: Bifocal IMPRESSION & PLAN: 1. Neovascular glaucoma of left eye, indeterminate stage -- presented to [facility] in neovascular angle closure 07/14/17 -- s/p Avastin and PRP ([facility]) with total regression of NVI -- IOP today , no change despite increased acetazolamide to 500 BID, now on max rx as listed below -- D/W pt, most important goal now is comfort of eye, offered DAY CAMP COUNSELOR diode or tube shunt, would lower IOP but not improve VA, also appropriate to leave as is and accept slow loss of minimal remaining vision -- for now, he feels best to observe without surgery, understanding loss of vision -- D/C acetazolamide,otherwise cont rx as below -- F/U 1 M: VA, IOP OU ON: ~0.5 / ~0.5 -- RAPD OS Tmax: CCT: Gonio: Open to SS-CBB / open to TM, few PAS, no NVA (08/16) VF: OCT: Surg: none Gtts: dorz-champ BID OS, brim BID OS, latan QHS OS, acetazol 500 PO BID 2. CRVO (central retinal vein occlusion) -- CRVO approx 2013, followed by [facility], now progressedto NVG as above -- baseline VA prior to NVG 20/200- 20/400 range 3. Nuclear sclerosis of right eye [...] glaucoma of left eye, indeterminate stage- Primary CRVO (central retinal vein occlusion) Central vein occlusion of retina Nuclear sclerosis of right eye Pseudophakia of left eye Lens replaced by other means documented in this encounter Discontinued Medications Medication Sig Discontinue Reason Start Date End Da te acetaZOLAMIDE (DIAMOX SEQUELS) 500 mg capsule Take 1 Cap by mouth 2 times daily. Therapy completed 08/11/2017 09/11/2017 documented as of this encounter Eye Exam Visual Acuity (Snellen - Linear) Right eye Left eye Dist cc 20/30 CF at 5' Dist ph cc NI Correction: Glasses Tonometry (Applanation, 10:31) Right eye Left eye Pressure 15 32 Neuro/Psych Oriented x3: Yes Mood/Affect: Normal External Exam Right eye Left eye External Normal Normal Slit Lamp Exam Right eye Left eye Lids/Lashes 1+ Blepharitis, punctal ectropio n 1+ Blepharitis, punctal ectropion Conjunctiva/Sclera White and quiet White and elio et Cornea Clear Clear Anterior Chamber Deep and quiet Deep and quiet Iris Round and reactive Round and dewayne ctive, no NVI Lens 1-2+ NS PCIOL Vitreous Normal Normal Fundus Exam Right eye Left eye Disc ? trace NVD C/D Ratio ~0.5 ~0.5 Macula flat, mod drusen flat, moderate drusen Vessels Normal attenuated Wearing Rx Sphere Cylinder [place] Add Right eye +0.50 +1.00 008 +3.00 Left eye +0.50 +0.75 005 +3.00 Age: 11y Type: Bifocal Care Teams Knit Goods Mender Relationship Specialty Start Date End Date John Cee MD PCP - General 06/07/15 documented as of this encounter
--- OUTSIDE RECORDS SUMMARY | 2024-06-06 19:13 | XMS_ITS | Encounter Summary ---
Author Organization [facility] Address [address] [place] [address] Care Team Providers Care Recording Studio Setup Worker Name Role Phone John Cee MD Primary Care Provider Unav ailable Reason for Visit * Reason Onset Date Comments Medications Refill 07/18/2019 Encounter Details Date Type Department Care Team (Late st Contact Info) Description 07/18/2019 Refill [facility] Ophthalmology - [address] [address] Eduardo Ha MD [address] [place] [address], [address] [place] [phone] Medications Refill Social History Tobacco Use Types [...] Drop into the left eye at bedtime. 12.5 mL 3 07/18/2019 documented in this encounter Miscellaneous Notes * Telephone Encounter - Ning Sorensen MA - 07/18/2019 1350 EST Doctor: Eduardo Ha MD Requested Medication(s): latanaprost 90 day supply Last appointment date: 01/10/2019 Last appointment note regarding medication:latanoprost QHS OS Next appointment date: Patient due for follow up this month but not yet scheduled * Telephone Encounter - Leila Cadena - 07/18/2019 1024 EST Medication Refill Medication(s) Requested:Latanoprost [facility]acy: [facility] Is patient out of medication? Yes 30 day supply/ 90 day supply: 90 Follow up appointment: Please remind the patient [...] drop into the left eye at bedtime. Reorder 12/09/2018 07/18/2019 documented as of this encounter Care Teams Recording Studio Setup Worker Relationship Specialty Start Date End Date John Cee MD PCP - General 06/07/15 documented as of this encounter
--- OUTSIDE RECORDS SUMMARY | 2024-06-06 19:13 | XMS_ITS | Encounter Summary ---
Author Organization [facility] Address [address] [place] [address] Care Team Providers Care Area Field Manager Name Role Phone John Cee MD Primary Care Provider Unav ailable Reason for Visit * Reason Onset Date Comments Medications Refill 10/06/2017 Encounter Details Date Type Department Care Team (Late st Contact Info) Description 10/06/2017 Refill [facility] Ophthalmology - [id number] [place] [address] Eduardo Ha MD [address] [facility] [address] [place] [address] Medications Refill Social History Tobacco Use Types [...] Drop into the left eye at bedtime. 1 Bottle 11 10/06/2017 11/24/2017 documented in this encounter Miscellaneous Notes * Telephone Encounter - Luis Enrique Hollis RN - 10/06/2017 0907 EST Doctor: Eduardo Ha MD Requested Medication(s): latanoprost Last appointment date: 09/11/17 Last appointment note regarding medication:'latan QHS OS,' Next appointment date: 10/16/17 * Telephone Encounter - Renetta Malone - 10/06/2017 0903 EST Medication Refill Medication(s) Requested: ?? latanoprost (XALATAN) 0.005 % ophthalmic solution Pharmacy (reconcile pharmacy list): [facility] in [place], [place] Is patient out of medication? Yes Picking up/mailing (location)/calling in/eprescribe? eprescribe Renetta Malone 10/06/20179:03 documented in this encounter Plan of Treatment Not on file documented as of this encounter Visit Diagnoses Not on filedocumented in this encounter Discontinued Medications Medication Sig Discontinue Reason Start Date End Da te latanoprost (XALATAN) 0.005 % ophthalmic solution Place 1 Drop into the left eye at bedtime. Reorder 08/26/2017 10/06/2017 documented as of this encounter Care Teams Area Field Manager Relationship Specialty Start Date End Date John Cee MD PCP - General 06/07/15 documented as of this encounter
--- OUTSIDE RECORDS SUMMARY | 2024-06-06 19:13 | XMS_ITS | Encounter Summary ---
Author Organization [facility] Address [address] [place] [address] Care Team Providers Care Apartment Community Manager Name Role Phone John Cee MD Primary Care Provider Unav ailable Reason for Visit * Reason Comments Glaucoma Pt here for f/u for Neovascular glaucoma of left eye, indeterminate stage. Last examined in glaucoma clinic just under a year ago. Pt states no pain, no ocular irritation, stable VA, no f/f. Medication Management dorz-timolol BID O S, brimonidine BID OS, latanoprost QHS OS Encounter Details Date Type Department Care Team (Late st Contact Info) Description 01/10/2019 12:45 EDT Office Visit [facility] Ophthalmology - [address] [address] Eduardo Ha MD [address] [facility], [address] [place] [phone] Discharge Disposition: Auto Discharge Social History Tobacco [...] oth eye disord, l eye, indeterminate stage-H40.52X4[ICD-10-CM] H25.11 Age-related nuclear cataract, right eye-H25.11[ICD-10-CM] Z96.1 Presence of intraocular lens-Z96.1[ICD-10-CM] documented in this encounter Discharge Disposition Disposition Code Departure Means Destination Auto Discharge documented in this encounter Progress Notes * Eduardo Ha MD - 01/10/2019 1245 EDT Chief Complaint Patient presents with ??? Glaucoma Pt here for f/u for Neovascular glaucoma of left eye, indeterminate stage. Last examined in glaucoma clinic just under a year ago. Pt states no pain, no ocular irritation, stable VA, no f/f. ??? Medication Management dorz-timolol BID OS, brimonidine BID OS, latanoprost QHS OS HPI :The patient is a 78 y.o. male Physician HPI: Pt denies recent vision change no recent flashes -- no new floaters denies eye redness -- denies eye pain denies recent eye trauma -- denies new eye medicines Physician ROS: Pt denies diabetes -- Pt denies new cough / shortness of breath Right Eye: NL Left Eye: Loss of Vision Visual Aid: Glasses Current Rx Age 3 years Location: Both eyes Pain: 0 - No pain Quality: Severity: Duration: Months Timing: Constant Lasts: Months Context: Modifying factors: Associated Signs & Symptoms: Attestation: ROS Constitutional: NL ENT/Mouth NL Cardiovascular: High Blood Pressure Respiratory: NL Gastrointestinal: Genitourinary: Musculoskeletal: Integumentary: Neurologic: NL Psychiatric: Endocrine: NL Hematologic: NL Immunologic: NL Humidifier Attendant: Exposures: None Other: Attestation: Allergies include: Penicillins Patient Active Problem List Diagnosis ??? Fall ??? Fracture of cervical vertebra (HCC-CMS) ??? Fracture of left clavicle ??? Macular pucker, left eye Outpatient Medications Marked as Taking for the 01/10/19 encounter (Office Visit) with Eduardo Ha MD Medication Sig ??? brimonidine (ALPHAGAN) 0.2 % ophthalmic solution Place 1 drop into the left eye 2 times daily. ??? dorzolamide-timolol (COSOPT) 22.3-6.8 mg/mL ophthalmic solution Place 1 drop into the left eye 2 times daily. ??? latanoprost (XALATAN) 0.005 % ophthalmic solution Place 1 drop into the left eye at bedtime. ??? lisinopril (PRINIVIL, ZESTRIL) 5 mg tablet Take 5 mg by mouth daily. ??? VIT C/VIT E/LUTEIN/MIN/OMEGA-3 (OCUVITE ORAL) Take by mouth daily Past Medical History: Diagnosis Date ??? Cataract ??? Glaucoma ??? Hypertension ??? Seizure ([facility] November 2006 grand mal seizure, witnessed [...] Patient reports that he quit smoking about 7 years ago. He quit after 20.00 years of use. He has never used smokeless tobacco. He reports that he uses drugs. Drug: Marijuana. Frequency: 1.00 time perweek. He reports that he does not drink alcohol. Recent HbA1c: No results found for: HGBA1C Base Eye Exam Visual Acuity (Snellen - Linear) Right Left Dist cc 20/60 -1 +1 NLP Dist ph cc 20/30 -2 Correction: Glasses Tonometry (Applanation, 12:58) Right Left Pressure 14 31 Pupils Dark Light Shape React APD Right 2.5 2 Round Brisk None Left RAPD Visual [place] (Counting fingers) Right Left Full Restrictions Total superior temporal, inferior temporal, superior nasal, inferior nasal deficiencies Extraocular Movement Right Left Full Full Primarily ortho Neuro/Psych Oriented x3: Yes Mood/Affect: Normal Dilation Both eyes: paremyd @ 12:59 Slit Lamp and Fundus Exam External Exam Right Left External Normal 50% upper lid ptosis Slit Lamp Exam Right Left Lids/Lashes 1+ Blepharitis, punctal ectropion 1+ Blepharitis, punctal ectropion Conjunctiva/Sclera White and quiet White and quiet Cornea Clear Clear Anterior Chamber Deep and quiet Deep and quiet Iris Round and reactive Round and reactive, mod old NVI Lens 1-2+ NS PCIOL Vitreous Clear Clear Fundus Exam Right Left Disc thinner superior pale, no NV C/D Ratio ~0.5 0.99 Macula flat, mod drusen flat, moderate drusen, scattered heme Vessels Normal attenuated Periphery Normal Normal Refraction Wearing Rx Sphere Cylinder [place] Add Right +0.50 +1.00 008 +3.00 Left +0.50 +0.75 005 +3.00 Age: 3yrs Type: Bifocal Manifest Refraction Sphere Cylinder [place] Dist VA Add Near VA Right [place] +1.00 003 20/30 -2 +2.75 J1+ (-2) Left IMPRESSION & PLAN: 1. Neovascular glaucoma of left eye, indeterminate stage -- presented to [facility] in neovascular angle closure 07/17 -- OS has progressed to NLP, remains comfortable, cornea clear -- no glaucoma in OD -- pt asks to stop rx in OS, agree this is reasonable, would resume if develops pain -- D/C dorz-timolol and brimonidine, cont latanoprost for now -- F/U 6 M: IOP, OCT NFL OU (unclear to me if needs to cont care here at that point, most important is monitoring of retina) ON: ~0.5 / ~0.9, pale -- RAPD OS Tmax: XX CCT: Gonio: Open to SS-CBB / open to SS-TM, 2 H PAS superior (01/15) VF: OCT: Surg: none Gtts: dorz-timolol BID OS, brimonidine BID OS, latanoprost QHS OS 2. Central retinal vein occlusion, left -- CRVO 2013, stable old iris NV, no retinal NV at present 3. Nuclear sclerosis of right eye -- moderate cataract, follow -- dilates 7+, no PXF 4. Pseudophakia of left eye -- stable PCIOL 5 Macular degeneration, bilateral -- pt on AREDS vitamin, cont care with [facility] I have reviewed the past medical, family, [...] Cap by mouth daily. 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 Therapy completed 01/14/2018 01/10/2019 brimonidine (ALPHAGAN) 0.2 % ophthalmic solution Place 1 drop into the left eye 2 times daily. Therapy completed 12/09/2018 01/10/2019 dorzolamide-timolol (COSOPT) 22.3-6.8 mg/mL ophthalmic solution Place 1 drop into the left eye 2 times daily. Therapy completed 12/09/2018 01/10/2019 documented as of this encounter Eye Exam Visual Acuity (Snellen - Linear) Right eye Left eye Dist cc 20/60 -1 +1 NLP Dist ph cc 20/30 -2 Correction: Glasses Tonometry (Applanation, 12:58) Right eye Left eye Pressure 14 31 Pupils Dark Light Shape React APD Right eye 2.5 2 Round Brisk None Left eye RAPD Visual [place] (Counting fingers) Right eye Left eye Full Restrictions Total superior t emporal, inferior temporal, superior nasal, inferior nasal deficiencies Extraocular Movement Right eye Left eye Full Full Primarily ortho Neuro/Psych Oriented x3: Yes Mood/Affect: Normal Dilation Both eyes: paremyd @ 12:59 External Exam Right eye Left eye External Normal 50% upper lid pt osis Slit Lamp Exam Right eye Left eye Lids/Lashes 1+ Blepharitis, punctal ectropio n 1+ Blepharitis, punctal ectropion Conjunctiva/Sclera White and quiet White and elio et Cornea Clear Clear Anterior Chamber Deep and quiet Deep and quiet Iris Round and reactive Round and dewayne ctive, mod old NVI Lens 1-2+ NS PCIOL Vitreous Clear Clear Fundus Exam Right eye Left eye Disc thinner superior pale, no NV C/D Ratio ~0.5 0.99 Macula flat, mod drusen flat, moderate drusen, scattered heme Vessels Normal attenuated Periphery Normal Normal Wearing Rx Sphere Cylinder [place] Add Right eye +0.50 +1.00 008 +3.00 Left eye +0.50 +0.75 005 +3.00 Age: 3yrs Type: Bifocal Manifest Refraction Sphere Cylinder [place] Dist VA Add Near VA Right eye [place] +1.00 003 20/30 -2 +2.75 J1+ (-2) Left eye Care Teams Apartment Community Manager Relationship Specialty Start Date End Date John Cee MD PCP - General 06/07/15 documented as of this encounter
--- OUTSIDE RECORDS SUMMARY | 2024-06-06 19:13 | XMS_ITS | Encounter Summary ---
Author Organization [facility] Address [address] [place] [address] Care Team Providers Care Stitch Bonding Machine Drawer In Name Role Phone John Cee MD Primary Care Provider Unav ailable Reason for Visit * Reason Comments Glaucoma Neovascular glaucoma of left eye, indeterminate stage, pt here for F/U 1 M: VA, IOP OU. Pt reports everything stable since previous visit: no changes in vision, no eye pain, no ocular irritation. Medication Management dorz-champ BID OS, b rim BID OS, latan QHS OS. Encounter Details Date Type Department Care Team (Late st Contact Info) Description 10/16/2017 10:00 EST Office Visit [facility] Ophthalmology - [address] [address] Eduardo Ha MD [address] [place] [address], [address] [place] [address] Discharge Disposition: Auto Discharge Social [...] Progress Notes * Eduardo Ha MD - 10/16/2017 1000 EST Chief Complaint Patient presents with ??? Glaucoma Neovascular glaucoma of left eye, indeterminate stage, pt here for F/U 1 M: VA, IOP OU. Pt reports everything stable since previous visit: no changes in vision, no eye pain, no ocular irritation. ??? Medication Management dorz-champ BID OS, brim BID OS, latan QHS OS. HPI :The patient is a 77 y.o. male Pt denies recent vision change no recent flashes -- no new floaters denies eye pain -- denies itchiness of eyes denies any recent eye trauma -- systemic health stable denies new eye medicines -- stopped oral acetazolamide as directed last visit Right Eye: Blurred Vision Left Eye: Blurred Vision Visual Aid: Glasses Current Rx Age > 2 years Location: Both eyes Pain: 0 - No pain Quality: Severity: Duration: Months Timing: Constant Lasts: Months Context: Modifying factors: Associated Signs & Symptoms: Attestation: ROS Constitutional: NL ENT/Mouth Hearing Loss Cardiovascular: High Blood Pressure Respiratory: NL Gastrointestinal: Genitourinary: Musculoskeletal: Integumentary: Neurologic: NL Psychiatric: Endocrine: NL Hematologic: NL Immunologic: Drug Allergy Latin Dance Instructor: Exposures: None Other: Attestation: Allergies include: Penicillins Patient Active Problem List Diagnosis ??? Fall ??? Fracture of cervical vertebra (CMS-HCC) ??? Fracture of left clavicle ??? Macular pucker, left eye Outpatient Prescriptions Marked as Taking for the 10/16/17 encounter (Office Visit) with Nicky Ha MD Medication Sig ??? atenolol (TENORMIN) 25 mg tablet Take 25 mg by mouth daily. ??? brimonidine (ALPHAGAN) 0.2 % ophthalmic [...] Cataract ??? Glaucoma ??? Hypertension ??? Seizure ([facility]) November 2006 grand mal seizure, witnessed by son, no recurrence, no Rx Past Surgical History: Procedure Laterality Date ??? CATARACT REMOVAL ??? HEMORRHOID SURGERY 1980s ??? INTRAOCULAR LENS PROSTHESIS INSERTION Left Family [...] - Linear) Right Left Dist cc 20/30 -2 CF at 4' Dist ph cc NI Correction: Glasses Tonometry (Applanation, 10:34) Right Left Pressure 14 34 Gonioscopy OS: mainly open SS, scattered PAS, trace NV Neuro/Psych Oriented x3: Yes Mood/Affect: Normal Slit Lamp and Fundus Exam External Exam Right Left External Normal Normal Slit Lamp Exam Right Left Lids/Lashes 1+ Blepharitis, punctal ectropion 1+ Blepharitis, punctal ectropion Conjunctiva/Sclera White and quiet White and quiet Cornea Clear Clear, 2+ diffuse SPK Anterior Chamber Deep and quiet Deep and quiet Iris Round and reactive Round and reactive, fine peripupillary NVA Lens 1-2+ NS PCIOL Vitreous Normal Normal Fundus Exam Right Left Disc ? trace NVD C/D Ratio ~0.5 ~0.5 Macula flat, mod drusen flat, moderate drusen, scattered heme Vessels Normal attenuated Refraction Wearing Rx Sphere Cylinder [place] Add Right +0.50 +1.00 008 +3.00 Left +0.50 +0.75 005 +3.00 Type: Bifocal IMPRESSION & PLAN: 1. 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 Central retinal vein occlusion, left -- CRVO approx 2013, followed by [facility], now progressed to NVG as above -- baseline VA prior [...] by other means documented in this encounter Eye Exam Visual Acuity (Snellen - Linear) Right eye Left eye Dist cc 20/30 -2 CF at 4' Dist ph cc NI Correction: Glasses Tonometry (Applanation, 10:34) Right eye Left eye Pressure 14 34 Gonioscopy OS: mainly open SS, scattered PAS, trace NV Neuro/Psych Oriented x3: Yes Mood/Affect: Normal External Exam Right eye Left eye External Normal Normal Slit Lamp Exam Right eye Left eye Lids/Lashes 1+ Blepharitis, punc jayesh ectropion 1+ Blepharitis, punctal ectropion Conjunctiva/Sclera White and quiet White and elio et Cornea Clear Clear, 2+ diffus e SPK Anterior Chamber Deep and quiet Deep and quiet Iris Round and reactive Round and dewayne ctive, fine peripupillary NVA Lens 1-2+ NS PCIOL Vitreous Normal Normal Fundus Exam Right eye Left eye Disc ? trace NVD C/D Ratio ~0.5 ~0.5 Macula flat, mod drusen flat, moderate drusen, scattered heme Vessels Normal attenuated Wearing Rx Sphere Cylinder [place] Add Right eye +0.50 +1.00 008 +3.00 Left eye +0.50 +0.75 005 +3.00 Type: Bifocal Care Teams Stitch Bonding Machine Drawer In Relationship Specialty Start Date End Date John Cee MD PCP - General 06/07/15 documented as of this encounter
--- OUTSIDE RECORDS SUMMARY | 2024-06-06 19:13 | XMS_ITS | Encounter Summary ---
Author Organization [facility] Address [address] [place] [address] Care Team Providers Care Respiratory Therapy Aide Name Role Phone John Cee MD Primary Care Provider Unav ailable Reason for Visit * Reason Onset Date Comments Medications Refill 05/24/2018 Encounter Details Date Type Department Care Team (Late st Contact Info) Description 05/24/2018 Refill [facility] Ophthalmology - [address] [address] Eduardo Ha MD [address] [place] [address], [address] [place] [phone] Medications Refill Social History Tobacco Use Types [...] eye 2 times daily. 10 mL 3 05/24/2018 07/14/2018 latanoprost (XALATAN) 0.005 % ophthalmic solution Place 1 Drop into the left eye at bedtime. 2 Bottle 3 05/24/2018 07/14/2018 documented in this encounter Miscellaneous Notes * Telephone Encounter - Tonya Whitman RN - 05/24/2018 0938 EDT Doctor: Eduardo Ha MD Requested Medication(s): Latanoprost and Brimonidine Last appointment date: 01/29/2018 Last appointment note regarding medication: brimonidine BID OS, latanoprost QHS OS Next appointment date: Return if symptoms worsen or fail to improve * Telephone Encounter - Aimee Walsh - 05/24/2018 0902 EDT Medication Refill Medication(s) Requested: brimonidine, latanoprost Pharmacy: [facility] Is patient out of medication? Yes 30 day supply/ 90 day supply: 90 Follow up appointment: last seen In January Please remind the patient that it can [...] into the left eye at bedtime. Reorder 04/05/2018 05/24/2018 brimonidine (ALPHAGAN) 0.2 % ophthalmic solution Place 1 Drop into the left eye 2 times daily. Reorder 04/05/2018 05/24/2018 documented as of this encounter Care Teams Respiratory Therapy Aide Relationship Specialty Start Date End Date John Cee MD PCP - General 06/07/15 documented as of this encounter
--- OUTSIDE RECORDS SUMMARY | 2024-06-06 19:13 | XMS_ITS | Referral Summary ---
Author Organization [facility] Address [address] [place] [address] Care Team Providers Care Sliver Chopper Name Role Phone John Cee MD Primary Care Provider Unav ailable Allergies Active Allergy Reactions Criticality Noted Date Comments Penicillins Hives 02/11/2012 Medications Medication Sig Dispensed Refills Start Date End Date Status atenolol (TENORMIN) 25 mg tablet Take 25 mg by mouth daily. Active VIT C/VIT E/LUTEIN/MIN/OMEGA-3 (OCUVITE ORAL) Take by mouth daily Active lisinopril (PRINIVIL, ZESTRIL) 5 mg tablet Take 5 mg by mouth daily. Active latanoprost (XALATAN) 0.005 % ophthalmic solution Place 1 Drop into the left eye at bedtime. 12.5 mL 3 07/18/2019 Active Active Problems Problem Noted Date Diagnosed Date Macular pucker, left eye 06/12/2015 Fall 02/11/2012 Overview: From bed Fracture of cervical vertebra ([facility]) 02/11/20 12 Overview: C1 vidal fx (2 part, lateral displacement of left lateral mass) Fracture of left clavicle 02/11/2012 Social History Tobacco Use Types Packs/Day Years [...] on file Sexual Orientation Not on file Last Filed Vital Signs Vital Sign Reading Time Taken Comments Blood Pressure 140/73 06/12/2015 1600 EDT Pulse 58 02/15/2012 0914 EDT Temperature 36.2 ??C (97.2 ??F) 06/12/2015 1600 EDT Respiratory Rate 17 06/12/2015 1600 EDT Oxygen Saturation 95% 06/12/2015 1600 EDT Inhaled Oxygen Concentration - - Weight 81.6 kg (180 lb) 06/07/2015938 EDT Height 171.5 cm (5' 7.5) 06/07/2015938 EDT Body Mass Index 27.78 06/07/2015938 EDT Functional Status Cognitive Status Response Date of Assessm ent Because of a physical, menta l, or emotional condition, do you have serious difficulty concentrating, remembering, or making decisions? (5 years old or older) Yes 02/11/2012 Plan of Treatment Not on file Advance Directives For more information, please contact: [phone] * Full Code (Latest Code Status on File) Date Activated Date Inactivated Comments 06/12/2015 13:08 06/12/2015 18:24 Question Answer Comments Reason for decision includes: Full code consistent with overall plan of care Who participated in the discussion? Not Discusse d * Full Code Date Activated Date Inactivated Comments 02/11/2012 15:58 02/17/2012 12:02 Care Teams Sliver Chopper Relationship Specialty Start Date End Date John Cee MD PCP - General 06/07/15
--- OUTSIDE RECORDS SUMMARY | 2024-06-06 19:13 | XMS_ITS | Clinical Summary ---
Author Organization [facility] Address [address] [place] [address] Care Team Providers Care Rn Clinical Documentation Name Role Phone John Cee MD Primary [...] Overview: From bed Fracture of cervical vertebra ([facility]) 02/11/20 12 Overview: C1 vidal fx (2 part, lateral displacement of left lateral mass) Fracture of left clavicle 02/11/2012 Surgical History Surgery Date Site/Laterality Comments HEMORRHOID SURGERY 1980s CATARACT REMOVAL INTRAOCULAR LENS PROSTHESIS INSERTION Lef t Medical History Medical History Date Comments Hypertension Seizure ([facility]) November 2006 grand mal seiz ure, witnessed by son, no recurrence, no Rx Cataract Glaucoma Family History Medical History Relation Comments Glaucoma Neg Hx Keratoconus Neg Hx Macular Degeneration Neg Hx Retinal Detachment Neg Hx Retinitis Pigmentosa Neg Hx Social History Tobacco Use Types Packs/Day Years [...] on file Sexual Orientation Not on file Obstetrics History Last Filed Vital Signs Vital Sign Reading Time Taken Comments Blood Pressure 140/73 06/12/2015 1600 EDT Pulse 58 02/15/2012 0914 EDT Temperature 36.2 ??C (97.2 ??F) 06/12/2015 1600 EDT Respiratory Rate 17 06/12/2015 1600 EDT Oxygen Saturation 95% 06/12/2015 1600 EDT Inhaled Oxygen Concentration - - Weight 81.6 kg (180 lb) 06/07/2015 09 EDT Height 171.5 cm (5' 7.5) 06/07/2015 09 EDT Body Mass Index 27.78 06/07/2015 09 EDT Plan of Treatment Health Maintenance Due Date Last Done Comments RSV Immunization ( o r 60+ Years) (1 - 1-dose 60+ series) 2001 Fall Risk Screening 2006 COVID-19 Vaccine (2022-24 season) 2023 Advance Directives For more information, please contact: [phone] * Full Code (Latest Code Status on File) Date Activated Date Inactivated Comments 06/12/2015 13:08 06/12/2015 18:24 Question Answer Comments Reason for decision includes: Full code consistent with overall plan of care Who participated in the discussion? Not Discusse d * Full Code Date Activated Date Inactivated Comments 02/11/2012 15:58 02/17/2012 12:02 Care Teams Rn Clinical Documentation Relationship Specialty Start Date End Date John Cee MD PCP - General 06/07/15
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
--- OUTSIDE RECORDS SUMMARY | 2024-06-06 19:14 | XMS_ITS | Encounter Summary ---
Author Organization [facility] Address [address] [place] [address] Care Team Providers Care Speech Assistant Name Role Phone Giorgi Mueller MD Primary Care Provider [phone] Reason for Visit * Reason Comments Trauma see flow chart Encounter Details Date Type Department Care Team (Late st Contact Info) Description 02/11/2012 13:35 EDT - 02/17/2012 10:00 EDT Hospital Encounter [facility] Cardiothoracic Surgery Unit [address] [place] [address] Jorge Solomon MD [address] [facility], [facility] [address] [place] [address] Sharad Duckworth MD PhD Cervical spine fracture ([facility]) ([facility]) Discharge Disposition: Home or Self Care Social History Tobacco Use Types Packs/Day Years Used Date Smoking Tobacco: Former Cigarettes Alcohol Use Standard Drinks/Week Comments Not Asked 0 (1 standard drink = 0.6 oz pur e alcohol) Sex and Gender Information Value Date Recorded Sex Assigned at Not on file Gender Identity Not on file Sexual Orientation Not on file documented as of this encounter Last Filed Vital Signs Vital Sign Reading Time Taken Comments Blood Pressure 151/77 02/17/2012 0613 EDT rn has been notified Pulse 58 02/15/2012 0914 EDT Temperature 36.6 ??C (97.9 ??F) 02/17/2012 0 613 EDT Respiratory Rate 14 02/17/2012 0613 EDT Oxygen Saturation 96% 02/17/2012 061 3 EDT Inhaled Oxygen Concentration - - Weight 97.3 kg (214 lb 8.1 oz) 02/11/2012 1943 EDT Height - - Body Mass Index - - documented in this encounter Functional Status Cognitive Status Response Date of Assessm ent Because of a physical, menta l, or emotional condition, do you have serious difficulty concentrating, remembering, or making decisions? (5 years old or older) Yes 02/11/2012 documented as of this encounter Discharge Summaries * Hector Dias MD - 02/12/2012 0840 EDT Discharge Summary Chief Complaint/Reason for Admission: Fall from loft bed Principal/Final Diagnosis: Patient Active Problem List Diagnoses Date Noted ??? Fall 02/11/2012 Class: Temporary ??? Cervical spine fracture 02/11/2012 Class: Temporary ??? Fracture of left clavicle 02/11/2012 Class: Temporary Principal Procedure: NA Secondary Procedures: NA Prognosis: fair Condition at Discharge: Improved Assessment at Discharge: Vital signs: Patient Vitals for the past 12 hrs: BP Heart Rate Resp Temp SpO2 O2 Device 02/17/12 0613 151/77 mmHg 74 BPM 14 36.6 ??C (97.9 ??F) 96 % Room air 02/17/12 0325 154/82 mmHg 69 BPM - - - - 02/17/12 0314 167/82 mmHg 68 BPM 14 36.3 ??C (97.3 ??F) 95 % Room air 02/17/12 0230 135/77 mmHg - - - - - 02/16/12 2232 147/75 mmHg 55 BPM 12 36.2 ??C (97.2 ??F) 92 % Room air 02/16/12 2037 141/76 mmHg - - - - - Hospital Course: Jimmy Gil is a 71 y.o. male with pmh of htn and ?seizures. [facility] after fallingout of his loft bed and sustaining a C1 fracture and R clavicle fracture. He will be managed conservatively for his fractures. He was admitted for observation. OT performed a HIMS which he passed. Heworked with PT and ambulated, had adequate pain control and tolerated a diet. However, it was felt that the patient would not have the support needed at home and [facility]ERA was recommended. He awaited placement and was discharged on 02/17/12 to [facility] with instructions to follow up with Ortho spine and Ortho trauma. Relevant Studies at Discharge: none Last Lab Results at Discharge: BUN: Lab Results Component Value Date BUN 18 02/14/2012 Creatinine: Lab Results Component Value Date CREATININE 0.69 02/14/2012 CBC: Lab Results Component Value Date WBC 7.47 02/11/2012 RBC 4.56 02/11/2012 HGB 14.1 02/11/2012 HCT 40.3 02/11/2012 MCV 88 02/11/2012 MCH 30.9 02/11/2012 MCHC 35.0 02/11/2012 PLT 142 02/11/2012 DIFFTYPE Automated 02/11/2012 Electrolytes: Lab Results Component Value Date NA 137 02/14/2012 K 4.2 02/14/2012 CL 101 02/14/2012 CO2 27 02/14/2012 Discharge Medications: No medications prior to admission that will be resumed at discharge. New medications prescribed at discharge: Medication Sig Dispense Refill ??? docusate sodium (COLACE) 100 mg capsule Take 2 Caps by mouth 2 times daily. ??? oxycodone-acetaminophen (PERCOCET) 5-325 mg per tablet Take 1-2 Tabs by mouth every 4 hours as needed for Pain. 60 Tab 0 cc: PCP:GIORGI MUELLER MD Referring Prov:Aris Bryanmikeandi Discharge Summary Completed: 02/17/2012 documented in this encounter Discharge Instructions * Discharge Instructions* Hector Dias MD - 02/16/2012 11:52 EDT Diet: Eat small frequent meals. Drink plenty of fluids. Gradually return to normal eating as you wish. Activity: NWB LUE, sling for comfort C-collar for 6 weeks Driving: No driving while taking narcotic pain medication Skin/Wound Care: Not applicable Bathing: Shower only Pending Results: Not applicable Symptoms to Call Your Doctor About: Chest pain (angina) Dizziness or fainting Decreased urine output Fever greater than 100.5 or chills Inability to swallow or increasing difficulty swallowing Increased or new pain Increased peripheral edema Nausea or vomiting Pain unrelieved by medication Recurrance of symptoms that brought you to the hospital Severe or increasing headache Shortness of breath or rapid breathing Skin rash Signs of infection such as pain, redness, swelling or drainage at procedure or wound site Appointments: Bailey J collar for 6 weeks, ok to remove for hygiene. Follow up in two weeks in non-op spine clinic with Dr. Brody, please call [phone] for an appointment guy HAMM for comfort. follow up in ortho trauma clinic with Dr. Prince or Rajni in two weeks, please call [phone] for an appointment You do not need to follow up with the trauma clinic. Please call if you have any other questions orconcerns. [phone] You should follow up with your primary care physician in 7-10 days to determine if this fall was related to an underlying condition. Follow-up Services Contacted at Discharge: none Health Risk and Disease Information: Not applicable documented in this encounter Medications at Time of Discharge Medication Sig Dispensed Refills Start Date End Date docusate sodium (COLACE) 100 mg capsule Take 2 Caps by mouth 2 times daily. 02/12/2012 06/07/2015 oxycodone-acetaminophen (PERCOCET) 5-325 mg per tablet Take 1-2 Tabs by mouth every 4 hours as needed for Pain. 60 Tab 0 02/12/2012 06/07/2015 documented as of this encounter Ordered Prescriptions Prescription Sig Dispensed Refills Start Date End Da te oxycodone-acetaminophen (PERCOCET) 5-325 mg per tablet Take 1-2 Tabs by mouth every 4 hours as needed for Pain. 60 Tab 0 02/12/2012 06/07/2015 docusate sodium (COLACE) 100 mg capsule Take 2 Caps by mouth 2 times daily. 02/12/2012 06/07/2015 documented in this encounter Discharge Disposition Disposition Code Departure Means Destination Home or Self Care documented in this encounter Progress Notes * Freya Walsh, PT - 02/17/2012 1042 EDT [facility] Physical Therapy Discontinue/Discharge Note Date of Service: 02/17/2012 Precautions: Activity as tolerated, Bailey J. Per ortho notes; NWB LUE, sling for comfort SUBJECTIVE: n/a OBJECTIVE: Intervention Completed Today: No treatment rendered today due to: patient has been/will be discharged from hospital. Team Communication: Patient has been seen in physical therapy since 02/12/12 for Therapeutic exercises, Therapeutic activities and Gait training. In this reporting period 02/12/12 to 02/16/12 the patient has been seen by a physical therapist andphysical therapist learning and development assistant. Frequency: daily 3 times per week. Intensity: 30-80 minutes per session. Duration: During this hospitalization. Please refer to the physical therapy notes for specifics on the patient's functional status and treatment sessions. Relevant objective findings: AROUSAL, ATTENTION, AND COGNITION: 02/16/12 Pt alert and oriented x 3 CARDIOPULMONARY: 02/16/12 Vital Signs: Activity Heart rate (bpm) Blood Pressure (mmHg) Oxygen Sat/ Fractions of inspired Oxygen SPO2/FIO2 % Pre 61 146/75 semi reclined 95% on RA Post 64 151/88 sitting BP's monitored on pt's R UE with dynamap. Pt with no JIANG INTEGUMENTARY/ANTHROPOMETRIC CHARACTERISTICS: 02/16/12 Palpation/Observation: Skin: R UE superior elbow with ecchymosis Edema: mild Posture: cervical collar intact RANGE OF MOTION AND JOINT INTEGRITY: 02/16/12 Left Upper Extremity: L shoulder n/e due to clavicle fx, wrist and hand, within functional limits Right Upper Extremity: within functional limits Cervical Spine: NE due to cervical spine fracture, +c-collar Left Lower Extremity: within functional limits Right Lower Extremity: within functional limits MUSCLE PERFORMANCE: 02/16/12 Muscle strength not formally assessed. LUE: n/e secondary to clavicle fracture. RUE and bilateral LE's grossly 4/5 SENSATION, REFLEXES, AND NERVE INTEGRITY: 02/16/12 No problems noted NEUROMOTOR FUNCTION/DEVELOPMENT: 02/16/12 No problems noted BALANCE, LOCOMOTION, AND GAIT: 02/16/12 Pt amb with straight cane ~500 feet, modified independent assist with no LOB or SOB. Pt amb with decreased aldair, decreased SAURAV, decreased foot clearance and decreased step length Gait Training: Stairs: Patient ascended/descended 6 steps with one rail, patient required supervision assist with verbal cues for energy conservation. SELF-CARE, HOME MANAGEMENT, WORK, AND LEISURE: 02/16/12 Bed Mobility: pt performed supine -> sit with supervision assist and verbal cues for encouragement to attempt with no bed features and for technique, R side of bed with HOB @ ~50 and use of bed rail. Pt unable to tolerate the HOB down any lower Transfers: pt performed sit <-> stand transfers from the EOB to recliner chair with supervision assist and verbal cues for hand placement/ safety ASSESSMENT: Physical therapy services in this setting have been discontinued secondary to: Patient has been or will be discharged from the hospital Physical Therapy Diagnosis: Impaired mobility related to decreased activity tolerance, generalized weakness, restricted weightbearing, and decreased balance, with significant increased c/o pain. Physical Therapy Prognosis: Per LICENSED OCCUPATIONAL THERAPIST note 02/16/12, Pt tolerated all mobility well and with no reports of pain. Pt is safe to return home with 24 hour support, however will require a hospital bed in order to do so. Pt however desires to go to rehab first as he does not wish to be a burden on his daughter. In light of this, this patient will benefit from PT intervention in a [facility] setting with goals of maximizing patient activity tolerance and mobility in preparation for D/C. Anticipate patient's mobility will continue to progress as pt's medical status improves. See below for status on goals. Short-Term Goals: will defer Long-Term Goals: 1 week All Goals Met, but that n/e Bed mobility: Patient will perform supine <-> sit with modified independence to supervision-met Transfers: Patient will perform sit <-> stand and stand step transfers with or without assistive device with close supervision Gait: Patient will ambulate with or without assistive device and min contact assist x 1 >75' Patient will demonstrate independence with AROM BLE therapeutic exercises with copy provided for reference n/e Patient/family aware of PT recommendations Stairs with railing: Up/down at least 4 steps with appropriate assistive device with min contact assist PLAN: D/C Physical Therapy Recommended Discharge Destination: Home with caregiver vs [facility] Recommended Discharge Services: Home health physical therapy vs Rehab Recommended Equipment Needs: To be determined by next care provider Other recommendations: No other consults recommended at this time Pager: [phone] Becky Sheldon, LICENSED OCCUPATIONAL THERAPIST 02/17/2012 10:42 Freya Walsh PT [phone] * Tana Wang OT - 02/17/2012 0828 EDT [facility] - Occupational Therapy Discontinue/Discharge Note Date of Service: 02/17/2012 SUBJECTIVE: Pt to d/c this morning,not seen OBJECTIVE: The patient has been seen in occupational therapy since 02/11 by OTR. Interventions have included: Occupation Based Activity - Basic Activities of Daily Living and Standardized Cognitive Testing In this reporting period 02/11 to 02/16, the patient has been seen by OTR for Occupation Based Activity - Basic Activities of Daily Living and Standardized Cognitive Testing Relevant Objective Findings: Body Functions and Performance Skills: Mental Functions: pt passed HIMS Neuromusculoskeletal and Movement Related Functions: he has a L clavicle fracture, C 1 fracture ( Bailey J at all times) Areas of Occupation and Performance Skills: Basic Activities of Daily Living: he is total A for collar. He can don LB garments such as pants , seated and has standing balance sufficient for pants pull. Additional time needed for over hip. He is total A for socks ASSESSMENT: Pt is a 71 year old man, admitted for multitrauma s/p fall. He is appropriate for a brief Sameera to maximize his functional status prior to d/c GOALS: Short Term Goals: n/a Halfway Goals: all goals discontinued Pt will use long handled equip for LB dressing and bathing Pt will demonstrate the ability to don UB garments with verbal cues Family will verbalize understanding of the amount of assistance he will need at d/c PLAN: Discontinue occupational therapy at [facility]. Discharge plan: [facility] Follow-up services: OT Discharge equipment: none Pager: [phone] TANA WANG OT, 02/17/2012, 8:28 * Hector Dias MD - 02/17/2012 0712 EDT Trauma Surgery Progress Note Date of Service: 02/17/2012 Events over past 24 hours: no acute events. Assessment: 71 y.o. male who sustained a fall from his loft bed on 02/10. He has a C-1 fracture and Left clavicle fracture. He passed his HIMS exam and is requiring a bit more work with PT in regards to mobility.Pt stable and is ready for discharge from a medical standpoint and is going to rehab today Plan: Continue PT/OT Pain control DINAH Melendez at all times BP control Rehab today Subjective/Chief Complaint: Fall from Loft Bed, C-1 fx with neck pain Physical Exam/Objective: Blood pressure 151/77, pulse 58, temperature 36.6 ??C (97.9 ??F), temperature source Tympanic, resp. rate 14, weight 97.3 kg (214 lb 8.1 oz), SpO2 96.00%. Exam: Neurologic: alert, oriented, normal speech, no focal findings or movement disorder noted, moves allextremities, sensation intact. c-collar in place Respiratory: clear to auscultation bilaterally Cardiovascular: regular rate and rhythm Abdomen: soft, non-tender; non-distended, normal bowel sounds Musculoskeletal: no palpable long bone deformities Prophylaxis: Pharmacologic Prophylaxis: Enoxaparin (Lovenox) 30mg SQ every 12 hours Is PICC or Central line present? No, PICC/Central line not present. Disposition: Subacute Rehab today Hector Dias MD 02/17/2012 7:16 * Guerda Luevano - 02/16/2012 1327 EDT Pt. Is skilled level of care as of today. Continue to follow. Pt. Is now medically ready for [facility]ERA. Accepted to [facility].For shane. Am. Will be leaving at 0900 by Katherine. Phone number for nursing report in sticky notes. Will need hard copies of any narcotics that will be prescribed. Daughter aware. Will update pt., team and unit. Juanis Luevano RN, Trauma CM #[id number] * Becky Sheldon - 02/16/2012 1145 EDT [facility] Physical Therapy Encounter Note Date of Service: 02/16/2012 SUBJECTIVE: I think I should go to rehab before I go to my daughters house. There is no way I can do this at home, alone. Pt with no reports of pain. Pt however did state that he is fearful of falling. OBJECTIVE: Intervention completed today: Time/Treatment Duration: 1000/30 min's Vital Signs: Activity Heart rate (bpm) Blood Pressure (mmHg) Oxygen Sat/ Fractions of inspired Oxygen SPO2/FIO2 % Pre 61 146/75 semi reclined 95% on RA Post 64 151/88 sitting BP's monitored on pt's R UE with dynamap. Pt with no JIANG Therapeutic Activity: Bed Mobility: pt performed supine -> sit with supervision assist and verbal cues for encouragement to attempt with no bed features and for technique, R side of bed with HOB @ ~50 and use of bed rail. Pt unable to tolerate the HOB down any lower Transfers: pt performed sit <-> stand transfers from the EOB to recliner chair with supervision assist and verbal cues for hand placement/ safety Pt amb with straight cane ~500 feet, modified independent assist with no LOB or SOB. Pt amb with decreased aldair, decreased SAURAV, decreased foot clearance and decreased step length Gait Training: Stairs: Patient ascended/descended 6 steps with one rail, patient required supervision assist with verbal cues for energy conservation. Patient/Family Education: Topic: Activity pacing/Energy conservation Bed mobility Discharge planning Safety Stairs Transfers Learner: patient Method: verbal and demonstration Barriers to Learning: none noted Outcome: needs practice, verbalized understanding and returned demonstration Team Communication: Pt status discussed with nursing prior to treatment session ASSESSMENT: Pt tolerated all mobility well and with no reports of pain. Pt is safe to return home with 24 hour support, however will require a hospital bed in order to do so. Pt however desires to go to rehab first as he does not wish to be a burden on his daughter. PLAN: Continue per plan of care Recommended Discharge Destination: Sub-acute rehabilitation vs home with assist Recommended Discharge Services: Physical therapy at rehabilitation facility vs [facility] Recommended Equipment Needs: To be determined Other recommendations: Social Work consult Primary Therapist: Freya Walsh Pager: [phone] Becky Sheldon, LICENSED OCCUPATIONAL THERAPIST 02/16/2012 11:48 * Tana Wang OT - 02/16/2012 1143 EDT Rehabilitation [facility]rap[facility] - Occupational Therapy Encounter Note Date of Service: 02/16/2012 SUBJECTIVE: This sling could be higher OBJECTIVE: Time: 3668-4577 Interventions included: Self-Care/Home Management: pt seated in recliner. Multiple attempts at sock aide, unsuccessful. He can don pants , seated without assistance. His static stance is sufficient for pants pull. Vital signs: Vital signs have been stable with interventions and were not monitored. Patient/Family Education: Topic: Adaptive adls Learner: patient Method: verbal and demonstration Barriers to Learning: none noted Outcome: returned demonstration Team Communication: with nsg, prior to seeing pt ASSESSMENT: Pt is able to perform more of his LB dressing today, with no reported pain PLAN: Continue adls Pager: [phone] TANA WANG OT, 02/16/2012, 11:43 * Federico Doherty PA - 02/16/2012 0724 EDT Trauma Surgery Progress Note Date of Service: 02/16/2012 Events over past 24 hours: stable. Assessment: 71 y.o. male who sustained a fall from his loft bed on 02/10. He has a c-1 fracture and Left clavicle fracture. He passed his HIMS exam and is requiring a bit more work with PT in regards to mobility.Pt stable and is ready for discharge from a medical standpoint. Awaiting placement to [facility]. Plan: Continue PT/OT Pain control OOB Al at all times Awaiting placement to rehab BP control Subjective/Chief Complaint: Fall from Loft Bed, C-1 fx with neck pain Physical Exam/Objective: Vital Signs BP: 147/69 mmHg Pulse: 58 Heart Rate: 60 BPM Resp: 14 Temp: 36.7 ??C (98.1 ??F) SpO2: 94 % O2 Device: Room air Exam: Neurologic: alert, oriented, normal speech, no focal findings or movement disorder noted Respiratory: clear to auscultation bilaterally Cardiovascular: regular rate and rhythm Abdomen: soft, non-tender; non-distended, normal bowel sounds Musculoskeletal: no palpable long bone deformities Prophylaxis: Pharmacologic Prophylaxis: Enoxaparin (Lovenox) 30mg SQ every 12 hours Is PICC or Central line present? No, PICC/Central line not present. Disposition: Subacute Rehab HETAL Werner 02/16/2012 7:24 * Rigoberto Lerner MD - 02/15/2012 0932 EDT Trauma Surgery Progress Note Date of Service: 02/15/2012 Events over past 24 hours: hypertensive, requiring labetalol Assessment: 71 y.o. male who sustained a fall from his loft bed on 02/10. He has a c-1 fracture and Left clavicle fracture. He passed his HIMS exam and is requiring a bit more work with PT in regards to mobility.Pt stable and is ready for discharge from a medical standpoint. Awaiting placement to [facility] Plan: Continue PT/OT Pain control DINAH Melendez at all times Awaiting placement to rehab BP control Subjective/Chief Complaint: Fall from Loft Bed, C-1 fx with neck pain Physical Exam/Objective: Vital Signs BP: 133/67 mmHg Pulse: 58 Heart Rate: 64 BPM Resp: 16 Temp: 36.4 ??C (97.5 ??F) SpO2: 95 % O2 Device: Room air Exam: Neurologic: alert, oriented, normal speech, no focal findings or movement disorder noted Respiratory: clear to auscultation bilaterally Cardiovascular: regular rate and rhythm Abdomen: soft, non-tender; non-distended, normal bowel sounds Musculoskeletal: no palpable long bone deformities Prophylaxis: Pharmacologic Prophylaxis: Enoxaparin (Lovenox) 30mg SQ every 12 hours Is PICC or Central line present? No, PICC/Central line not present. Disposition: Subacute Rehab Sapphire Rod MD 02/15/2012 9:32 Attestation statement: I saw and examined the patient with Dr. Rod. I agree with the findings and plan of care documented in the resident's/fellow's note. Awaiting SAH. Rigoberto Lerner MD, FACS * Rigoberto Lerner MD - 02/14/2012 0904 EDT Trauma Surgery Progress Note Date of Service: 02/14/2012 Events over past 24 hours: no acute events. Assessment: 71 y.o. male who sustained a fall from his loft bed on 02/10. He has a c-1 fracture and Left clavicle fracture. He passed his HIMS exam and is requiring a bit more work with PT in regards to mobility.He had some asymptomatic bradycardia overnight but has otherwise been hemodynamically stable and isready for discharge from a medical standpoint. Awaiting placement to [facility] Plan: Continue PT/OT Pain control DINAH Melendez at all times Awaiting placement to rehab Subjective/Chief Complaint: Fall from Loft Bed, C-1 fx with neck pain Physical Exam/Objective: Vital Signs BP: 171/87 mmHg Heart Rate: 57 BPM Resp: 18 Temp: 36.3 ??C (97.3 ??F) SpO2: 96 % O2 Device: Room air Exam: Neurologic: alert, oriented, normal speech, no focal findings or movement disorder noted Respiratory: clear to auscultation bilaterally Cardiovascular: regular rate and rhythm Abdomen: soft, non-tender; non-distended, normal bowel sounds Musculoskeletal: no palpable long bone deformities Prophylaxis: Pharmacologic Prophylaxis: Enoxaparin (Lovenox) 30mg SQ every 12 hours Is PICC or Central line present? No, PICC/Central line not present. Disposition: Subacute Rehab Sapphire Rod MD 02/14/2012 9:05 Attestation statement: I saw and examined the patient with Dr Rod. I agree with the findings and plan of care documented in the resident's/fellow's note. Awaiting SAH. Rigoberto Lerner MD, FACS * Tana Wang OT - 02/13/2012 1449 EDT [facility] - Occupational Therapy Encounter Note Date of Service: 02/13/2012 SUBJECTIVE: It hurts to lean over to reach my feet OBJECTIVE: Time: 8504-7055 and [id number] Interventions included: Self-Care/Home Management: pt was seated in wheelchair, family (son and daughter present) . Demo and redemo of adaptive adls : L arm in first, out last, need for large button down shirt. Lower body: pt can almost cross one leg over the other, but increased pain with reaching further toward feet. He can kick them out and hold his feet in the air. He should do this to assist his daughter in donning garments. Sit>stand with close supervision, pt able to demo static stance sufficient for dgt to pull pants up on his L, and pt to assist with pull to R. He demonstrates sufficient reach to assist with Bathing ashlie area and for toilet hygiene. flushable wipes recommended. Sling: adapted straps to reach Further education given on need to initiate adls at home in order to decreased risk of deconditioning. Amount of assist he needs further discussed with family. Concern that he will currently require more assist, and that he will have decreased initiation with family. Understanding of all education verbalized Vital signs: Vital signs have been stable with interventions and were not monitored. 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 At this time , he isappropriate for a [facility] placement as he needs more assist than his family can provide at this time PLAN: Continue with adls Pager: [phone] TANA WANG OT, 02/13/2012, 14:49 * Priyank Pardo, PT - 02/13/2012 1420 EDT [facility] Physical Therapy Encounter Note Date of Service: 02/13/2012 SUBJECTIVE: I'm feeling better today. OBJECTIVE: Intervention completed today: Time/Treatment Duration: 0910 x 35 minutes, and again 11:20 x 80 minutes (part in conjuction with OT to cluster care during disposition discussion with family) Early a.m. Tx: Therac, gait. Pt pre-medicated prior to treatment. Therapist to return at 1100 for additional family training. Ptwas kept NWB LUE throughout. Bed mobility; Supine>sit with HOB elevated 45 degrees with close supervision with use of rail Sit>supine with HOB elevated 30 degrees with rail with min contact assistance to control shoulders/support head during descent. Once BTB, pt max assist x 2 to reposition further up in bed. Transfers; Sit>stand from bed and chair with close supervision/contact guard assist, with pt demonstrating tendency to pull RLE way underneath base of support and to leverage off of it to get up. Cues to use hand on rail/chair arm, vs pulling on therapist/family member. Ambulation; ~70 x 1, and ~100' X 1 with hand held assistance, min contact assist with pt moving very slow. During 1st trial, pt leaning heavily onto therapist's hand. During 2nd trial, pt still placing pressure through therapist's hand, but less so. Moving very gingerly. Pt left BTB, resting comfortably. Pt reported 5/10 RPE with above activities. Late a.m. Tx. 11:20 x 80 minutes (self-care/family training, gait training, therac). Therapist initially arrived at 11:10, however daughter not here yet, and therapist went to obtain w/c. Attempted to fit 2 different slings, with sling velcro needing adjustment (OT to take care), so sling not utilized during tx today. Pt received in bed, discussion with daughter re: bed mobility and how to assist pt to raise HOB maximally. Bed mobility; Supine>sit with HOB elevated 45 degrees with close supervision with use of rail Transfers; Sit>stand from bed and w/c with close supervision/contact guard assist, with pt stilldemonstrating tendency to pull RLE way underneath base of support and to leverage off of it to get up. Again pt required cues to use hand on rail/chair arm, vs pulling on therapist/family member. Reviewed car transfers as well. Discussed use of commode and bathing at kitchen sink since daughter reports that bathroom is very crowded. Ambulation; ~60' with cane with contact guard assist, with pt still moving very slow. Discussion with family (daughter (primarily) & son ) re: need for pt to have contact guard assistance when ambulating over the course of the next several days. Also discussed clearing pathways (no toys, since daughter has 4y/o and 5 wk old), and to remove throw rugs. Stairs; Up/down 3 steps with rail, with contact guard assist with pt heavily leaning on rail duringtrial, with step to gait. 2nd trial without rail, with hand held assistance, with pt able to ascend just utilizing hand held assistance, however during descent, pt leaning heavily on therapist's forearm, and also stabilized with elbow on wall. Then had son return demonstrate proper guarding techniques using therapist as pt while pt rested in w/c. ([facility] to [facility] in w/c). Daughter present but dealing with fussy baby. Upon return to room, block and case maker arrived, and lengthy discussion with block and case maker and again laterwith OT re; feasibility of pt returning to daughter's house (who reports it's under construction, with composting toilet). Recommended use of urinal at night. Also recommended for pt to increase mobility opportunities throughout day. Pt expressing some doubt about being able to function at home, although was passive during discussion. Daughter expressed concerns that pt was requiring assistance with mobility and feeling overwhelmed. After discussion with OT/PT/family/pt, left family/pt to consider options including [facility] for short stay. Daughter also questioning realistic goal of getting pt back to his own home with therapist relaying that it may be some weeks before pt is fully independent, especially with clavicle fx. Was notified by OT (who returned to family) and reported that pt/familychoosing rehab at this time. Patient/Family Education: Topic: Activity pacing/Energy conservation Assistive device/technique Bed mobility Breathing exercises Car transfers Discharge planning Equipment use Gait Home program Positioning Precautions/protocol Role of therapy Safety Stairs Transfers Learner: patient and family Method: verbal and demonstration Barriers to Learning: none noted Outcome: requires assist, needs practice, verbalized understanding and returned demonstration (son) Team Communication: Case management notified of ongoing discusions ASSESSMENT: Pt moving better today, however still very slow, and requires full 24hr assistance at this time. Ptalso requires encouragement to increase mobility. Family feeling very overwhelmed with pt's functional status and decision was reached for pt to go to [facility] PLAN: Continue per plan of care Recommended Discharge Destination: Sub-acute rehabilitation Recommended Discharge Services: Physical therapy at rehabilitation facility Recommended Equipment Needs: To be determined by next care provider Other recommendations: Social Work consult Primary Therapist: Pager: [phone] PRIYANK PARDO, PT 02/13/2012 14:20 * Guerda Luevano - 02/13/2012 1414 EDT Covering for Inez Storm today. Received call from PT that family had concerns regarding going home after seeing pt. Mobilize. Met with pt., his daughter, April, and son, Nicanor this afternoon. Originallyplan was for pt. To go to daughters on d/c. After watching the amount of assist that her father needed right now, April felt that she would not be able to offer that amount of support. We discussed [facility] placement and after discussion with family, pt. Was agreeable for a referral to [facility]. Referrals sent this afternoon, but do not anticipate any responses before Thursday. Will follow up atthat time. Juanis Luevano RN, trauma CM #[id number] * Annalee Avalos MD - 02/13/2012 0714 EDT Trauma Tertiary Survey Admit Date: 02/11/2012 Date of Service: 02/13/2012 Chief Complaint: Fall from Loft Bed, C-1 fx with neck pain 24 Hour Events: Evaluated by PT - may need more assistance. Asymptomatic bradycardia overnight. Subjective: Patient feels ok this morning. Pain is well controlled. Injuries Identified: See Injury list/Problem list PMH Past Medical History Diagnosis Date ??? Hypertension ??? Seizure PCP: GIORGI MUELLER MD Review of Systems: A ten point review of systems was performed. Pertinent positives are listed below, all others are negative: Pain in L shoulder/arm with movement Vital Signs last 24 hours: Temp: [36.3 ??C (97.3 ??F)-37.1 ??C (98.8 ??F)] , Pulse: --, Resp: [18] , BP: (131-158)/(80-91) , SpO2: [96 %-98 %] Pain: Patient Vitals for the past 8 hrs: Numeric Pain Level (Scale 1-10) Asleep 02/13/12 0633 2 - 02/13/12 0505 4 - 02/13/12 0435 6 - 02/13/12 0325 0 Reassessed, sleeping comfortably, RR WNL. 02/13/12 0215 0 Reassessed, sleeping comfortably, RR WNL. 02/13/12 0209 0 - 02/13/12 0120 0 Reassessed, sleeping comfortably, RR WNL. 02/13/12 0015 0 Reassessed, sleeping comfortably, RR WNL. 02/12/12 2315 0 Reassessed, sleeping comfortably, RR WNL. Intake/Output Summary (Last 24 hours) at 02/13/12 0714 Last data filed at 02/13/12 0557 Gross per 24 hour Intake 680 ml Output 650 ml Net 30 ml Current Diet: General Limitations to participate in tertiary survey no Physical Exam: Head: laceration on apex of head appears to be healing Eyes: extraocular muscles intact ENT: oropharynx clear and no visible drainage in external auditory canals Neck: supple, non-tender, trachea midline and igiugig j in place Respiratory: clear to auscultation bilaterally Cardiovascular: regular rate and rhythm Abdomen: soft, non-tender; non-distended, normal bowel sounds Back: no tenderness across thoracic/lumbar spine Pelvis: non-tender, stable to anterior/posterior/lateral compression Genitourinary: deferred Musculoskeletal/Extremities: no palpable long bone deformities and motor/sensation grossly intact Pain with some ROM of L arm Skin: grossly intact Neurologic: alert, oriented, normal speech, no focal findings or movement disorder noted Pressure Ulcer Present on admission? No Is PICC or Central line present? No, PICC/Central line not present. Radiographic Findings: Pelvis: Findings: Portable frontal radiograph of pelvis shows no acute bony pathology. No hip dislocation. Degenerative changes especially at symphysis noted. CXR: Findings: Portable supine view of the chest shows lungs are grossly clear, no pleural effusionor contusion. Heart and mediastinal contours within normal limits for projection, no mediastinal widening. No sign of pneumothorax on this supine view. Shoulders partially included, signs of significant bilateral glenohumeral joint arthrosis. CT Head: Impression: 1. Right posterior scalp hematoma. 2. No calvarial fracture or intracranial hemorrhage identified. 3. Intracranial atherosclerosis. 4. Chronic right maxillary sinusitis with low-density fluid in the sinus. Correlation for signs and symptoms of acute sinusitis is suggested. 5. C1 fractures. CTA Neck: Impression: 1. Fractures of the anterior and posterior arch of C1. 2. Left clavicle fracture. 3. 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 4. Cervical degenerative disc and degenerative joint disease. 5. Evidence of prior granulomatous disease in the chest. 6. 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 7. Less than 30% stenosis of the internal carotid artery origins on the right and the left. 8. No arterial dissection or pseudoaneurysm identified. L Clavicle: Minimally inferiorly angulated and displaced fracture at the midshaft of the left clavicle. Upright C-Spine: There is a fracture at C1 as seen on prior CT imaging. This includes fracture through the left lateral mass the C1 which is laterally displaced with respect to the left lateral mass of C2 and perhaps with respect to the left occipital condyle which is poorly visualized. There is fusion of C2 and C3 which is partially visualized. Lab results Last 24: No results found for this or any previous visit (from the past 24 hour(s)). Assessment/Problems: Patient Active Problem List Diagnoses Date Noted ??? (H)Fall 02/11/2012 Class: Temporary From bed ??? (H)Cervical spine fracture 02/11/2012 Class: Temporary Type 1 vidal fx. ??? (H)Fracture of left clavicle 02/11/2012 Class: Temporary Jimmy Gil is a 71 y.o. male who sustained a fall from his loft bed on 02/10. He has a c-1 fracture and Left clavicle fracture. He passed his HIMS exam and is requiring a bit more work with PT inregards to mobility. He had some asymptomatic bradycardia overnight but has otherwise been hemodynamically stable and is ready for discharge from a medical standpoint. Awaiting clearance/recs from therapy Plan: Pain control IS, aggressive pulm toilet UOOB/Ambulate - PT Regular Diet HTN - home atenolol Lovenox 30 q12 Dispo - pending PT eval today Hector Dias MD 02/13/2012 7:14 Attestation: I saw and examined the patient with the resident/fellow 02/13/2012. I agree with the findings and plan of care documented in the resident's/fellow's note. No new issues O/N. Neck pain is much better today. Has been up ambulating in [place]. Plan is for d/c home today with daughter. Annalee Avalos MD 02/13/2012 15:51 * Shayy Storm, RN - 02/12/2012 1610 EDT I spoke to physical therapy and pt may need hospital bed upon discharge. [facility] to [facility] assist him in and out of bed if needed and stated that her house is set up to have a hospital bed if needed. She has requested home health aide to assist and I will have team order home health services. April will be here tomorrow at 11am to be here during PT se ssion and to bring him home with her if he is able to be discharged. Please contact Lyndsey Luevano who will be covering for me tomorrow if he needs a hospital bed. [facility]#[id number] * Priyank Pardo PT - 02/12/2012 1436 EDT [facility] Physical Therapy Contact Note Date of Service: 02/12/2012 Evaluation completed with full note to follow. Pt not ready for d/c today. Question if pt will needrehab. Will see how he does tomorrow a.mArmaan PARDO PT 02/12/2012 14:36 * Priyank Pardo PT - 02/12/2012 1143 EDT [facility] Physical Therapy Initial Evaluation Note Date of Service: 02/12/2012 Reason for Referral: Priority for discharge Precautions: Activity as tolerated, Rebekah Byrne Per ortho notes; NWB LUE, sling for comfort SUBJECTIVE: I don't feel like I could go home today. Pain: Location: neck Intensity: 3/10 (at present) Frequency: constant Quality: Ache/sharp/throbbing/pulsing Aggravating factors: movement Alleviating factors: Rest/medications OBJECTIVE: Patient Profile: Patient is a 71 y.o. male admitted on 02/11/2012 secondary to CERVICAL SPINE FX Thepatient lives at [address] [place] [address] HPI: (Per Dr. Ramirez's note 02/10) Jimmy Gil is a 71 y.o. male w/ hx of htn who awoke this morningwith neck pain and L shoulder pain. Also had some blood around his ears. Taken to [facility] and found to have a L clavicle and C1 fracture. Transferred to [facility] for management. Golden fine before bed last evening. Hx of heavy alcohol consumption, but denies etoh use for past two years. Had a prior C-spine injury as a child as states my spine is fused, did not have surgery for this injury. Denies other complaints. No paresthesias or weakness in BUE or BLE. No bowel/bladder incontinence. Otherwise feels ok, N/V/F/C. Several prior episodes of seizure vs. Blacking out. Prior seizure work up neg per patient. Home environment Lives: Alone, loft style bed Caregiver Support: when pt d/c's, he will be going to stay with his daughter in [place], [place], who is available 24hr/day Equipment Available: None Home Environment: House, (daughter's house) Home Layout: Multi-level. Entry Stairs: several steps in, however pt can stay on one floor once inside Prior Level of Function: Independent Services prior to admission: None Work/Leisure: Need to clarify Medical/Surgical History: Current: Patient Active Problem List Diagnoses ??? Fall ??? Cervical spine fracture ??? Fracture of left clavicle Past: Past Medical History Diagnosis Date ??? Hypertension ??? Seizure Past Surgical History Procedure Date ??? Hemorrhoid surgery Imaging: CT C spine- C1 fracture line extending through L anterior arch and through L posterior arch, lateral mass is 6mm laterally displaced, facet joints are subluxed, but remain located, there are no bony fragments within the canal, there are no occipital condyle fractures, bodies of C2-4 vertebrae appear fused XR C-spine lateral centered at mastoid and odontoid view- fracture laterally displaced, alignment does not appear to have change compared to CT c spine AP/cephalad of L clavicle- minimally displaced middle 1/3 clavicle shaft fracture, no shortening orZ deformity, small piece of comminution, no skin tenting CT angio of neck- pending AP plevis- no bony injury L shoulder XR- no bony injury other than previously mentioned clavicle fracture L knee XR- no bony injury Medications: Medications reviewed Arousal, Attention, and Cognition: Orientation: Alert Oriented to person, place, and time Cardiopulmonary: Vital Signs: Activity Heart rate (bpm) Blood Pressure (mmHg) Respiratory rate (breaths/min) Oxygen Sat/ Fractions of inspired Oxygen SPO2/FIO2 % Pre stable 173/97 (nrg notified), pt states he takes 25 mg atenolol (which he did not take today) Dynamap RUE During Post 186/87 (after amb) dynamap RUE Integumentary/Anthropometric Characteristics: Palpation/Observation: Skin: R great toe with significant eccymosis/bruising on dorsal surface, LUE not fully assessed (ptwearing gown) Edema: +mild Posture: +c/s collar Range of Motion and Joint Integrity: Active Range of Motion: Within normal limits except as noted Upper Quarter: Left Upper Extremity: NE L shoulder due to clavicle fx, Lelbow , wrist and hand, wnl Right Upper Extremity: RUE with shoulder to 90 degrees only secondary to pain, Lelbow , wrist and hand Cervical Spine: NE due to cervical spine fracture, +c-collar Lower Quarter: Left Lower Extremity: Right Lower Extremity: Lumbar Spine: NE Muscle Performance: Strength: Manual muscle test completed in: sitting for lower quarter Upper Quarter: Left Upper Extremity: NE due to L clavicular fx, pt NWB LUE Right Upper Extremity: R biceptricep >/= 4/5, pt only given mild resistance due to discomfort Cervical Spine: NE due to +c-spine fx Lower Quarter: Left Lower Extremity: >/= 4/5 Right Lower Extremity: >/= 4/5 Lumbar Spine: Sensation, Reflexes, and Nerve Integrity: Light Touch Sensation: Upper Quarter: Intact C2-T1 Lower Quarter: Intact for lower extremities Neuromotor Function/Development: No problems noted Balance, Locomotion, and Gait: Balance: Balance deficits observed: Sitting Balance Static: independent Dynamic: supervision due to discomfort Standing balance Static: full min contact assist with RUE handheld assist Dynamic: full min contact assist with RUE handheld assist Locomotion: Not evaluated as wheelchair mobility does not apply to this patient. Gait: Assistive device/distance/assist/deviations: ~20' (in room only) with hand held assist, with pt leaning heavily onto therapist for support, mildly unsteady, very slow, +antalgic Self-Care, Home Management, Work, and Leisure: Mobility evaluation as follows: Rolling: pt did not feel able to roll Supine to sit: to pt's R with HOB elevated 45 degrees with mod assist (pt pulling up on therapist'sarm, declined trial of use of rail), attempted initially at 30 degrees, with pt unable to complete due to profound discomfort Sit to supine: with HOB elevated ~25 degrees with rail, with mod assist to help control descent onto bed. Pt did not wish to attempt going down on his side, significant time to complete activity Sit to stand: min contact assist from bed, with verbal cues for hand placement, pt asking to pull up on therapist Stand to sit: min contact assist to bed, with verbal cues for hand placement Bed to chair: NE Chair to bed: NE Informed Consent: The patient consented to the physical therapy evaluation. The patient agrees to and understands the physical therapy treatment plan and goals. Interventions Completed Today: Physical Therapy today at: 1335 Examination: 35 minutes Intervention: 0 minutes Intervention included: No interventions completed today, pt was instructed to perform ankle pumps to promote improved circulation. Patient/Family Education: Topic: Balance Bed mobility Discharge planning Exercise Gait Positioning Precautions/protocol Role of therapy Safety Transfers Learner: patient Method: verbal and demonstration Barriers to Learning: none noted Outcome: requires assist and needs practice Team Communication: updated nrg re: elevated BP with nrg calling team re: need for atenolol ASSESSMENT: Upper Quarter Screen: Positive findings (please refer to physical therapy prognosis section of assessment for details) Physical Therapy Diagnosis: Impaired mobility related to decreased activity tolerance, generalized weakness, restricted weightbearing, and decreased balance, with significant increased c/o pain. Physical Therapy Prognosis: pt moving very slowly today, very gingerly. Pt had been premedicated prior to tx (therapist had attempted at noon, however pt just had taken meds, requesting to rest). Pt not ready for d/c today. Unclear what level of physical assistance pt will have available at home. Pt may need hospital bed to facilitate d/c. Pt will need to be able to travel 3 hrs by car and then ambulate into home, and up stairs. Question if pt will need rehab for improved mobility prior to d/c to home, pending on level of progress overnight. Pt was encouraged to increase in room mobility at this time. Will reassess tomorrow morning. Spoke with case management who will attempt to coordinate t reatment time with family tomorrow prior to d/c (if pt is able to d/c). Given the patient's LUE fracture and impaired ROM/restricted weightbearing, continued monitoring ofUE is warranted. Caution should be taken while assisting patient with repositioning. Short-Term Goals: will defer Long-Term Goals: 1 week Bed mobility: Patient will perform supine <-> sit with Transfers: Patient will perform sit <-> stand and stand step transfers with or without assistive device with close supervision Gait: Patient will ambulate with or without assistive device and min contact assist x 1 >75' Patient will demonstrate independence with AROM BLE therapeutic exercises with copy provided for reference Patient/family aware of PT recommendations Stairs with railing: Up/down at least 4 steps with appropriate assistive device with min contact assist PLAN: Treatment/Intervention: Physical therapy will be provided by physical therapist and/or physical therapist learning and development assistant when medically appropriate. Frequency: daily 5 times per week Intensity: 30 minutes per session Duration: During hospitalization Interventions may include:Therapeutic exercises, Therapeutic activities, Gait training and Self-care/management Patient/family education: Discharge planning, Equipment, Family training, Precautions, Recommendations, Role of physical therapy/rehabilitation, Safety Further Data: Recommended Discharge Destination: To be determined Recommended Discharge Services: To be determined Recommended Equipment Needs: To be determined Other recommendations: No other consults recommended at this time Pager: [phone] PRIYANK PARDO, PT 02/12/2012 11:43 * Tana Wang, OT - 02/12/2012 1034 EDT [facility] Occupational Therapy Initial Evaluation Note Date of Service: 02/12/2012 Reason for Referral: Evaluate and treat Precautions: Rebekah Selby ortho notes; NWB LUE, sling for comfort Act as yobany SUBJECTIVE: I don't think I could go home today Pain: Location: L arm and neck Intensity: Not rated Frequency: Constant Quality: Sharp Aggravating factors: Movement Alleviating factors: Medication OBJECTIVE: Patient Profile: Jimmy Gil is a R hand dominant 71 y.o. male admitted on 02/11/2012 secondary to CERVICAL SPINEFX The patient lives at [address] [place] [address] History of Present Illness/Injury: Per BST : Patient is a 71 y.o. male who presents as transfer from OSH. Per report pt fell out of his loft bed to floor. Was found in am back in bed with blood on pillow and on floor. He does have a history of seizure like activity. Per report was found to have C1 fx of lateral mass and posterior elements. Also possible clavicular fx. Remembers going to bed last night Living Environment/Home Set-up: pt lives alone, loft style bed Caregiver Support: He will d/c to his daughters home, she is home time signal wirer. Several steps in, thenon one floor. She has a claw foot tube Equipment Available: none Prior Level of Function: Activities of daily living: Pt was I Instrumental activities of daily living: Pt was I Work/Leisure: He is a retired [employer]. He has a masters in Business Medical/Surgical History: Current: Patient Active Problem List Diagnoses ??? Fall ??? Cervical spine fracture ??? Fracture of left clavicle Past: Past Medical History Diagnosis Date ??? Hypertension ??? Seizure Past Surgical History Procedure Date ??? Hemorrhoid surgery Medications: Medications reviewed Body Functions and Performance Skills: Cardiovascular/Respiratory Systems Function: Vital Signs: Not evaluated due to stable per nsg documentation Mental Functions: Specific mental functions: pt passed HIMS Sensory Functions: Touch: BUE intact to light touch Vision: he wears glasses, difficult to see lower gonsales due to c collar Hearing: he is slightly LOV[place]OCK Neuromusculoskeletal and Movement Related Functions: Range of motion: cervical and L shoulder not evaluated due to fractures. RUE with shoulder to 90 degrees only secondary to pain, Lelbow , wrist and hand, BLE wnl for AROM Joint of stability: R shoulder intact. L clavicle fracture Strength: formal MMT not done due to fractures; RUE, BLE And L elbow and hand at least =>3/5 Muscle endurance: decreased from baseline Control of voluntary movement: R: gross and fine motor coordination intact for adls Skin and Related Structure Functions: Skin functions: head abrasion Areas of Occupation and Performance Skills: Basic Activities of Daily Living: Feeding: pt is I with R hand, needing set up Grooming: based on performance components, pt can perform sink side grooming at the level of modified I, seated with set up . He does not have the endurance and balance to perform standing tasks at this time Bathing: he will need assist with lower body, and total A for C collar Upper Body Dressing: he is total A Lower Body Dressing: he is unable to reach his feet due to C collar, his standing balance requires min contact A for pants pul Functional Mobility: from the recliner: sit>stand with min A of 2, cues not to use LUE . Sit>supine with flat bed: increased pain with W B on R arm and total A for legs Instrumental Activities of Daily Living: Based on performance components pt will not be able to perform household tasks at the time of discharge Rest and Sleep: Not evaluated due to not relevant at this time. Education: Not evaluated due to not relevant at this time. Work: Not evaluated due to not relevant at this time. Leisure: Not evaluated due to not relevant at this time. Social Participation: Not evaluated due to not relevant at this time. Outcome Measures: Not evaluated due to not relevant at this time. Informed Consent: The patient consented to the occupational therapy evaluation. The patient agrees to and understandsthe occupational therapy treatment plan and goals. Interventions completed today: Occupational therapy today at 950 Evaluation: 20 minutes Intervention: 0 minutes Intervention included: Patient/Family Education: Topic: Role of OT Learner: patient and family Method: verbal Barriers to Learning: none noted Outcome: verbalized understanding Team Communication: With nsg prior to eval ASSESSMENT: Pt is a 71 year old previously I man admitted s/p multi trauma presenting with limiting factors of increased pain, decreased mobility, balance, use of his LUE, ability to reach and see his lower bodyimpacting occupations of self care, homemaking and leisure activities . Anticipate that pt will be able to d/c home to his daughter assistance. He will need at least min contact A with dressing and total A for his C collar and household tasks. Anticipate he will be able to gradually return to his previous level of functioning Positive findings of the Upper Quarter Screen as noted in the Neuromusculoskeletal and Movement Related Functions section but no therapy at this time due to need for healing of fracture Short Term Goals: n/a Dope Mixer Goals: 1 week ?? Pt will use long handled equip for LB dressing and bathing ?? Pt will demonstrate the ability to don UB garments with verbal cues ?? Family will verbalize understanding of the amount of assistance he will need at d/c PLAN: Intervention: Occupational therapy treatment for 30-45 minutes a day 2-3 times a week during hospitalization. Interventions include: Occupation Based Activity - Basic Activities of Daily Living Patient/Family Education Further Data: none Patient/Family Education: Adaptive adls Discharge Plan: Home with family assist Pager: [phone] TANA WANG OT, 02/12/2012, 10:37 * Shayy Storm RN - 02/12/2012 1010 EDT Brief Case Management Assessment Reason for Hospitalization: Pt woke up with blood on his pillow and found blood on the floor at the bottom of his loft. He apparently fell off the 6 foot loft onto the ground in the middle of the night. He was transferred from [facility] for further care. He sustained L clavicle fx, C1 fx which are not needing surgical repair. Hewill have igiugig-J collar for six weeks. Current Living Arrangements: Lives [place]- he sleeps in loft which he climbs a ladder to enter. Current Social, Health Care and Community Supports: No comm svcs, PCP Luis Alberto Cee at [facility], Medicare and Medicaid Identified Case Management/Social Work Needs and Issues (housing, care, financial, transportation, cultural, spiritual, emotional, legal, etc.): I met with Jimmy and his son- Nicanor this morning while he was sitting up in recliner soaking his feet. He stated he was sore all over but was anticipating discharge later today. I explained my role andwe discussed plan of care and that PT/OT will work with him to determine any discharge needs. The plan is for him to stay with his daughter- April in [place] during his recovery so she can assist with his care. Nicanor will be driving him there today if he is discharged, otherwise she will return tomorrow to get him. She lives in [place] and they can make arrangements for him to stay on first floor if needed. Jimmy stated that he would like to go home today if he can. We did not discuss circums tances around events of last night and I offered that I can assist with any needs. Case Management Actions (completed and planned): Will follow, please page me if any discharge needs arise. CCM#[id number] * Federico Doherty PA - 02/12/2012 0917 EDT Trauma Surgery Progress Note Date of Service: 02/12/2012 Events over past 24 hours: Arrived ED yesterday AM s/p lofted fall from bed C1 and clavicle fxs. Question of seizure activity. Admitted to [facility] to management. No Tele events. Assessment: 71 y.o. male s/p fall out of loft bed who sustained a C1 Vidal fracture, Left Clavicle fracture. Question of cause of fall in question - possible seizure activity. Transferred to [facility] yesterday PM.Afebrile oevrinight. VSS Plan: OT eval. c-collar per Ortho spine. Will need out-pt neurology eval for ? Of seizure. Pain meds Reg diet. Bowel meds Dispo planning. Subjective/Chief Complaint: Neck pain s/p fall from lofted bed - C1 fracture, L clavicle fracture on imaging. Possible seizure. Review of Systems: Pertinent items are noted in the Subjective/HPI Physical Exam/Objective: Vital Signs BP: 132/73 mmHg Heart Rate: 55 BPM Resp: 16 Temp: 36.8 ??C (98.2 ??F) SpO2: 97 % O2 Device: Room air Exam: Neurologic: alert, oriented, normal speech, no focal findings or movement disorder noted Respiratory: clear to auscultation bilaterally Cardiovascular: regular rate and rhythm, palpable peripheral pulses present, no murmurs auscultated Abdomen: soft, non-tender; non-distended, normal bowel sounds Musculoskeletal: motor/sensation grossly intact and fracture location C1 and L clavicle, closed Prophylaxis: Pharmacologic Prophylaxis: Enoxaparin (Lovenox) 30mg SQ every 12 hours Is PICC or Central line present? No, PICC/Central line not present. Disposition: Uncertain at this time HETAL Werner 02/13/2012 9:18 * Tana Wang, OT - 02/12/2012 0815 EDT Rehabilitation Therapies [facility] Occupational Therapy Initial/Discontinue Evaluation Note Date of Service: 02/12/2012 Reason for Referral: TBI mini-screen Precautions: Rebekah ABRAMS NWB, sling for comfort, per ortho notes SUBJECTIVE: My neck hurts Pain: Location: neck Intensity: Not rated Frequency: constant Quality: Not qualified Aggravating factors: Movement Alleviating factors: Medication OBJECTIVE: Patient Profile: Jimmy Gil is a R hand dominant 71 y.o. male admitted on 02/11/2012 secondary to CERVICAL SPINEFRACTURE [805.00] The patient lives at [address] [place] [address] History of Present Illness/Injury: Patient is a 71 y.o. male who presents as transfer from OSH. Perreport pt fell out of his loft bed to floor. Was found in am back in bed with blood on pillow and on floor. He does have a history of seizure like activity. Per report was found to have C1 fx of lateral mass and posterior elements. Also possible clavicular fx. Remembers going to bed last night Living Environment/Home Set-up: pt lives alone, loft style bed Caregiver Support: He will d/c to his daughters home, she is home time signal wirer. Several steps in, thenon one floor. She has a claw foot tube Equipment Available: none Prior Level of Function: Activities of daily living: Pt was I Instrumental activities of daily living: Pt was I Work/Leisure: He is a retired [employer]. He has a masters in Business Medical/Surgical History: Current: Patient Active Problem List Diagnoses ??? Fall ??? Cervical spine fracture ??? Fracture of left clavicle CT Head: Impression: 1. Right posterior scalp hematoma. 2. No calvarial fracture or intracranial hemorrhage identified. 3. Intracranial atherosclerosis. 4. Chronic right maxillary sinusitis with low-density fluid in the sinus. Correlation for signs and symptoms of acute sinusitis is suggested. 5. C1 fractures. CXR: Portable supine view of the chest shows lungs are grossly clear, no pleural effusion or contusion. Heart and mediastinal contours within normal limits for projection, no mediastinal widening. Nosign of pneumothorax on this supine view. Shoulders partially included, signs of significant bilateral glenohumeral joint arthrosis. Pelvis Xray: Findings: Portable frontal radiograph of pelvis shows no acute bony pathology. No hip dislocation. Degenerative changes especially at symphysis noted. Past: Past Medical History Diagnosis Date ??? Hypertension ??? Seizure Past Surgical History Procedure Date ??? Hemorrhoid surgery Medications: Medications reviewed Body Functions and Performance Skills: Cardiovascular/Respiratory Systems Function: Vital Signs: Not evaluated due to stable per nsg documentation Mental Functions: Specific Mental Functions: Neurobehavioral Cognitive Status Examination (NCSE) The patient scored impaired in the following areas: Range (mild, moderate, severe) Attention: Naming: Calculations: Constructional Ability:moderate/severe Similarities: Repetition: Memory: Judgement: Comprehension: Global Mental Functions: Avinger Orientation and Amnesia Test (GOAT) score:80 (below 65 = impaired, 66-75 = borderline impaired, 76-100 = normal) Sensory Functions: Vision: limited by his collar for lower peripheral glasses. He wears bifocals Hearing: slightly [place]OVELOCK Neuromusculoskeletal and Movement Related Functions: Not evaluated due to not relevant to this assessment. Skin and Related Structure Functions: Not evaluated due to not relevant to this assessment. Areas of Occupation and Performance Skills: Basic Activities of Daily Living: Not evaluated due to not relevant to this assessment. Instrumental Activities of Daily Living: Not evaluated due to not relevant to this assessment. Rest and Sleep: Not evaluated due to not relevant to this assessment. Education: Not evaluated due to not relevant to this assessment Work: Not evaluated due to not relevant to this assessment Leisure: Not evaluated due to not relevant to this assessment Social Participation: He was appropriate through out the evaluation, but eye contact was limited Outcome Measures: Not evaluated due to not relevant to this assessment. Informed Consent: The patient consented to the occupational therapy evaluation. The patient agrees to and understandsthe occupational therapy treatment plan and goals. Interventions completed today: Occupational therapy today at 930. Evaluation: 20 minutes Intervention: 8 minutes Intervention included: Self-Care/Home Management: Education was provided on the adult head injury fact sheet. Instructed them to notify their physician of any functional impairment noted post-discharge. Patient/Family Education: Topic: Adult Head Injury Fact Sheet Learner: patient and his son Method: verbal and handout Barriers to Learning: none noted Outcome: verbalized understanding Team Communication: With nsg prior to eval ASSESSMENT: The patient was appropriate for skilled occupational therapy evaluation due to a traumatic brain injury. The patient appears to have no new cognitive deficits as a result of the traumatic brain injury. Skilled occupational therapy is no longer indicated, for his cognition . GOALS: Short Term Goals: None identified at this time Halfway Goals: Was set and met The patient/family verbalizes understanding of the adult head injury fact sheet PLAN: Intervention: Discontinue occupational therapy at [facility]. Further Data: None Patient/Family Education: none Discharge Plan: Home with family Pager: [phone] TANA WANG OT, 02/12/2012, 8:16 documented in this encounter H&P Notes * Hector Dias MD - 02/11/2012 1114 EDT Trauma Surgery Admission H+P Date/Time of Injury: 02/10/12 Date/Time Arrival to [facility]: 02/11/2012 Date of Service: 02/11/2012 Transferred from: [facility] Mode of Transport: Ambulance Trauma Alert: yes Trauma Attending Present: no d/w Dr. Avalos Trauma Team Evaluation: Green Mechanism of Injury: fall from bed Protective Equipment: none Head Injury: Unsure - patient asleep when event occurred. GCS: Total: 15 and Alert and oriented x3 Subjective/Chief Complaint: Fall from bed HPI: (Location, Quality, Severity, Duration, Timing, Context, Modifying Factors, Associated Signs and Symptoms) Patient is a 71 y.o. male who presents as transfer from OSH. Per report pt fell out of his loft bedto floor. Was found in am back in bed with blood on pillow and on floor. He does have a history of seizure like activity. Per report was found to have C1 fx of lateral mass and posterior elements. Also possible clavicular fx. Remembers going to bed last night History: reason unable to obtain: no PMH PSH Past Medical History Diagnosis Date ??? Hypertension ??? Seizure Past Surgical History Procedure Date ??? Hemorrhoid surgery neck surgery Social History Family history History Substance Use Topics ??? Smoking status: Not on file ??? Smokeless tobacco: Not on file ??? Alcohol Use: Not on file No family history on file. Medications No prescriptions prior to admission atenolol Allergies Allergies Allergen Reactions ??? Penicillins Hives Past histories, meds, and allegies confirmed yes Immunizations There is no immunization history on file for this patient. Review of Systems: A ten point review of systems was performed. Pertinent positives are listed below, all others are negative: Physical Exam: VS: sats 93-95% ra, 141/92, HR 56, rr 18 Exam: Head: lac on apex of head Eyes: pupils 2 mm, bilaterally reactive to light, extraocular muscles intact ENT: tympanic membranes clear bilaterally and oropharynx clear Neck: trachea midline tender to palpation over left lateral neck Respiratory: clear to auscultation bilaterally Cardiovascular: regular rate and rhythm Abdomen: soft, non-tender; non-distended, normal bowel sounds Back: no tenderness across thoracic/lumbar spine pain on left lateral side of neck, not on c-spine.No t/l tenderness. Bruise L buttock. Reddened area of buttock but no skin breakdown Pelvis: non-tender, stable to anterior/posterior/lateral compression Rectal: normal spincter tone, no gross blood Genitourinary: normal male genitalia Musculoskeletal: no palpable long bone deformities and motor/sensation grossly intact abrasion L knee Skin: see above in head, l knee Neurologic: alert, oriented, normal speech, no focal findings or movement disorder noted Wound(s) see above Pressure Ulcer Present on admission? area of red skin but no break down noted Objective Data: Labs:I have personally reviewed CBC: Lab Results Component Value Date WBC 7.47 02/11/2012 RBC 4.56 02/11/2012 HGB 14.1 02/11/2012 HCT 40.3 02/11/2012 MCV 88 02/11/2012 MCH 30.9 02/11/2012 MCHC 35.0 02/11/2012 PLT 142 02/11/2012 NEUTROABS 6.50 02/11/2012 BMP: Lab Results Component Value Date NA 136 02/11/2012 K 4.6 02/11/2012 CL 100 02/11/2012 CO2 28 02/11/2012 BUN 19 02/11/2012 CREATININE 0.71 02/11/2012 Coagulation: No results found for this basename: PROTIME, INR, PTT FAST: Not performed ECG: N/A CT Head: Impression: 1. Right posterior scalp hematoma. 2. No calvarial fracture or intracranial hemorrhage identified. 3. Intracranial atherosclerosis. 4. Chronic right maxillary sinusitis with low-density fluid in the sinus. Correlation for signs and symptoms of acute sinusitis is suggested. 5. C1 fractures. CXR: Portable supine view of the chest shows lungs are grossly clear, no pleural effusion or contusion. Heart and mediastinal contours within normal limits for projection, no mediastinal widening. Nosign of pneumothorax on this supine view. Shoulders partially included, signs of significant bilateral glenohumeral joint arthrosis. Pelvis Xray: Findings: Portable frontal radiograph of pelvis shows no acute bony pathology. No hip dislocation. Degenerative changes especially at symphysis noted. Assessment: Jimmy Gil is a 71 y.o. male s/p fall out of loft bed who sustained a C1 Vidal fracture, Left Clavicle fracture. No other injuries identified on prelim x-rays. Plan: Pain Control Regular diet CTA Neck Left arm sling for clavicle fracture C1 fracture - treat with Rebekah Cee and close follow up OTHIMS PT Ambulate SCDs Hector Dias MD 02/11/2012 17:43 documented in this encounter Procedure Notes * SCUBA INSTRUCTOR, SCAN 2 - 02/20/2012 1949 EDTAssociated Order(s): ECG REPORT - SCANNED documented in this encounter Consult Notes * Rashad Ramirez MD - 02/11/2012 1144 EDT Orthopaedics Spine Consult Date of Service: 02/11/[address] Solomon for Neck injury CC: Neck and shoulder pain HPI: Jimmy Gil is a 71 y.o. male w/ hx of htn who awoke this morning with neck pain and L shoulder pain. Also had some blood around his ears. Taken to [facility] and found to have a L clavicle and C1 fracture. Transferred to [facility] for management. Golden fine before bed last evening. Hx of heavy alcohol consumption, but denies etoh use for past two years. Had a prior C-spine injury as a child as states my spine is fused, did not have surgery for this injury. Denies other complaints. No paresthesias or weakness in BUE or BLE. No bowel/bladder incontinence. Otherwise feels ok, N/V/F/C. Several prior episodes of seizure vs. Blacking out. Prior seizure work up neg per patient. NPO since 9am this am, had coffee with cream PCP: GIORGI MUELLER MD PMH: Past Medical History Diagnosis Date ??? Hypertension PSH: Past Surgical History Procedure Date ??? Hemorrhoid surgery Meds: Atenolol Allergies: PCN Soc Hx: History Substance Use Topics ??? Smoking status: Not on file ??? Smokeless tobacco: Not on file ??? Alcohol Use: Not on file - lives alone in a house near [facility]. Remote hx of heavy alcohol consumption, no etoh in two years,smokes tobacco occasionally - lives at [address] [place] [address] Hx: No family history on file. ROS: See HPI Exam: Gen: AOx3 not in acute distress Resp: non labored CV: RRR Back: non-tender with palpation of C, T or L spine, some pain with palpation of L lateral neck, no step offs or boggienss with palpation of spine, nml rectal tone, no gross blood Neck: tender over middle 1/3 of clavicle No gross deformity of any long bones or major joints of bilateral extremities, L shoulder ROM limited by pain Upper Extremity: Strength Deltoid Biceps Triceps Wrist ext Wrist flex EPL Machine Puller And Laster DAB PAD Right 5 5 5 5 5 5 5 5 5 Left 3 5 5 5 5 5 5 5 5 Lower Extremity: Strength Ham Quad GS TA EHL Peroneal FHL Right 5 5 5 5 5 5 5 Left 5 5 5 5 5 5 5 Sensation: - light touch sensation in tact C2-S2 Relfexes- negative Hoffmans and downgoing Babinski bilaterally Vascular exam: Radial DP PT Right 2+ 2+ 2+ Left 2+ 2+ 2+ Data Review CBC: Lab Results Component Value Date WBC 7.47 02/11/2012 RBC 4.56 02/11/2012 HGB 14.1 02/11/2012 HCT 40.3 02/11/2012 MCV 88 02/11/2012 MCH 30.9 02/11/2012 MCHC 35.0 02/11/2012 PLT 142 02/11/2012 NEUTROABS 6.50 02/11/2012 BMP: Lab Results Component Value Date NA 136 02/11/2012 K 4.6 02/11/2012 CL 100 02/11/2012 CO2 28 02/11/2012 BUN 19 02/11/2012 CREATININE 0.71 02/11/2012 Imaging: CT C spine- C1 fracture line extending through L anterior arch and through L posterior arch, lateral mass is 6mm laterally displaced, facet joints are subluxed, but remain located, there are no bony fragments within the canal, there are no occipital condyle fractures, bodies of C2-4 vertebrae appear fused XR C-spine lateral centered at mastoid and odontoid view- fracture laterally displaced, alignment does not appear to have change compared to CT c spine AP/cephalad of L clavicle- minimally displaced middle 1/3 clavicle shaft fracture, no shortening orZ deformity, small piece of comminution, no skin tenting CT angio of neck- pending AP plevis- no bony injury L shoulder XR- no bony injury other than previously mentioned clavicle fracture L knee XR- no bony injury Assessment: 71 y.o. male with C1 L lateral mass Vidal fracture with anterior and posterior ring disruption and lateral displacement, L minimally displaced clavicle fracture, scalp laceration neurovascularly in tact. C-spine Alignment unchanged on upright films. Fracture remains laterally displaced. Patient Active Problem List Diagnoses ??? Fall ??? Cervical spine fracture ??? Fracture of left clavicle Plan: ?? Bailey J collar for 6 weeks, ok to remove for hygiene ?? No additional spinal precautions ?? LUE NWB, sling for comfort, follow up in ortho trauma clinic with Dr. Prince or Rajni rangel, please call [phone] for an appointment ?? Follow up in two weeks in non-op spine clinic with Dr. Brody, please call [phone] for an appointment ?? Ortho spine (Drs. Tillman and Janey) and ortho trauma (Drs. Neves and Rajesh) to sign off ?? This patient will be signed out and followed while admitted by the above mentioned ortho team members ?? Please call with questions Discussed with Dr. Teressa Ramirez MD Orthopedic Surgery [phone] documented in this encounter ED Notes * Samantha Reyes - 02/11/2012 1524 EDT Report called to [facility], awaiting pt transport * Samantha Reyes - 02/11/2012 1424 EDT Tried twice to call report, floor states unable to accept patient until someone else has been discharged despite ready room. * Samantha Reyes - 02/11/2012 1238 EDT Daughter and LISA at bedside. * Samantha Reyes - 02/11/2012 1155 EDT Blood drawn via saline lock per protocol, rainbow and pink tube(s) sent to lab per order. * Jorge Solomon MD - 02/11/2012 1141 EDT Images from the original note were not included. DOS: 02/11/2012 Chief Complaint Patient presents with ??? Trauma see flow chart The patient is a 71 y.o. male who presents today with Trauma HPI Comments: Initial patient contact. 02/11/2012 11:41 Jimmy Gil is a 71 y.o. male who presents with a chief complaint of trauma transfer. Pt Does not have clear memory of event but apparently fell out of his six-foot bedroom loft striking his head. He was seen at outside emergency department where he was diagnosed with a C1 Vidal fracture. Patient transferred here for further evaluation. No focal neurologic deficit. Complains of neck pain,Arrives in c-collar. Pt also notes left clavicle pain and scalp contusion where he hit his head on fall. Hx of seizures. Trauma Pertinent negatives include no chest pain, no abdominal pain and no shortness of breath. The history is provided by the patient and the EMS personnel. Review of Systems Constitutional: Negative for fever and chills. HENT: Positive for neck pain. Negative for neck stiffness. Eyes: Negative for visual disturbance. Respiratory: Negative for shortness of breath. Cardiovascular: Negative for chest pain. Gastrointestinal: Negative for nausea, vomiting, abdominal pain and diarrhea. Genitourinary: Negative for difficulty urinating. Musculoskeletal: Negative for joint swelling. Skin: Positive for wound. Negative for rash. Neurological: Negative for weakness and headaches. Psychiatric/Behavioral: Negative for confusion. All other systems reviewed and are negative. Past Medical History Diagnosis Date ??? Hypertension ??? Seizure Past Surgical History Procedure Date ??? Hemorrhoid surgery Allergies Allergen Reactions ??? Penicillins Hives History Substance Use Topics ??? Smoking status: Former Smoker -- 20 years ??? Smokeless tobacco: Not on file ??? Alcohol Use: Not on file No family history on file. Vital Signs Temp: 36.5 ??C (97.7 ??F) Temp src: Tympanic Heart Rate: 50 BPM Resp: 18 SpO2: 96 % BP: 154/80 mmHg BP Device: BP Machine Patient Position: Semi fowlers BP Cuff Location: Right arm Physical Exam Nursing note and vitals reviewed. Constitutional: He is oriented to person, place, and time. He appears well- developed and well-nourished. Cervical collar and backboard in place. HENT: Mouth/Throat: Oropharynx is clear and moist. Eyes: EOM are normal. Pupils are equal, round, and reactive to light. No scleral icterus. Neck: Spinous process tenderness present. Cardiovascular: Normal rate, regular rhythm and normal heart sounds. Pulmonary/Chest: Effort normal and breath sounds normal. Abdominal: Soft. There is no tenderness. There is no guarding. Musculoskeletal: Normal range of motion. He exhibits no edema. Neurological: He is alert and oriented to person, place, and time. He has normal strength. Skin: Skin is warm and dry. No rash noted. Psychiatric: He has a normal mood and affect. Radiology orders: PORTABLE CHEST 1 VIEW PELVIS [address] HEAD WO CONTRAST CLAVICLE COMPLETE CERVICAL SPINE 2-3 VIEWS OUTSIDE IMAGES - CT NEURO OUTSIDE IMAGES - PLAIN FILM MSK OUTSIDE IMAGES - PLAIN FILM MSK PORTABLE CHEST 1 VIEW Final result not shown here.: PELVIS 1 OR 2 VIEWS Final result not shown here.: CT ANGIO NECK Final result not shown here.: CT HEAD WO CONTRAST Final result not shown here.: CLAVICLE COMPLETE Final result not shown here.: CERVICAL SPINE 2-3 VIEWS Final result not shown here.: CT HEAD (Results Pending) CT ANGIOGRAM NECK (Results Pending) CERVICAL SPINE 2-3 VIEWS (Results Pending) OUTSIDE IMAGES - CT NEURO (Results Pending) OUTSIDE IMAGES - PLAIN FILM MSK (Results Pending) OUTSIDE IMAGES - PLAIN FILM MSK (Results Pending) Procedures ED Course: A medical screening exam was performed. Pt arrives alert and HD stable. Pain control dilaudid IV Ortho and BST consult. CT head and neck reviewed and interpreted by me and reviewed and discussed with radiology. Findingssignificant for: No bleed, C1 Fx Ortho eval => Bailey J collar no sx indicated at this time. Admit to BST Labs Reviewed HEMAGRAM AND DIFFERENTIAL - Abnormal; Notable for the following: Neutrophils 87.0 (*) Lymphocytes 8.5 (*) Eosinophils 0.1 (*) ABS Lymphs 0.64 (*) ABS Eosinophils 0.00 (*) All other components within normal limits SCREENING GLUCOSE - Abnormal; Notable for the following: Glucose, Screening 122 (*) All other components within normal limits ELECTROLYTES BUN CREATININE BLOOD BANK SPECIMEN HOLD HOLD BLUE TOP HOLD GREEN TOP MRSA MOLECULAR DETECTION ELECTROLYTES BUN CREATININE ELECTROLYTES BUN CREATININE Disposition: Admitted The patient's pain was managed to an adequate level weighing risk vs. benefit of further medications. Upon departure from the Emergency Department, the patient's pain was 2 on a zero to ten scale. Condition at departure from the Emergency Department: Stable Current Discharge Medication List START taking these medications Details docusate sodium (COLACE) 100 mg capsule Take 2 Caps by mouth 2 times daily. oxycodone-acetaminophen (PERCOCET) 5-325 mg per tablet Take 1-2 Tabs by mouth every 4 hours as needed for Pain. Qty: 60 Tab, Refills: 0 MDM Number of Diagnoses or Management Options Cervical spine fracture: Diagnosis management comments: 5 Amount and/or Complexity of Data Reviewed Clinical lab tests: ordered and reviewed Tests in the radiology section of CPT??: ordered and reviewed Discussion of test results with the performing providers: yes Discuss the patient with other providers: yes Independent visualization of images, tracings, or specimens: yes Patient Progress Patient progress: stable 1. Cervical spine fracture STATUS: INPATIENT ACUTE ADMISSION, STATUS: INPATIENT ACUTE ADMISSION, STATUS: INPATIENT ACUTE ADMISSION, STATUS: INPATIENT ACUTE ADMISSION PCP: GIORGI MUELLER MD 02/13/2012 6:51 * Maral Vázquez I - 02/11/2012 1120 EDT TCALL: Transfer from [facility] accepted by Dr Duckworth for care of C1 fracture s/p fall. Also with L clavicle fracture, head laceration (not sutured), abrasions, left upper arm skin tear. No recall of fall. 71 y/o, eccentric personality. Sleeps in loft bedroom up 6 foot ladder. Fell at some point, blood found on floor. Daily marijuana user. Hx HTN on atenolol 25mg QD, possible sz in 2006. BP 140/80, p 50, sinus nidia, alert, SpO2 WNL. Rec'd tetanus booster. Report from Pedro taken by Sarai Hudson RN. documented in this encounter Miscellaneous Notes * Scanned Note-Null - SCUBA INSTRUCTOR, SCAN 2 - 02/20/2012 194 EDT * Scanned Note-Null - SCUBA INSTRUCTOR, SCAN 2 - 02/20/2012 1949 EDT * Scanned Note-Null - SCUBA INSTRUCTOR, SCAN 2 - 02/19/2012 0739 EDT * Plan of Care - Ronit Guevara RN - 02/17/2012 1028 EDT Problem: MOBILITY Goal: Mobility/Activity Is Maintained At Optimum Level For Patient Discharge Note D - Patient ordered for discharge today. A - Patient given prescriptions, medication information sheets and After Visit Summary. Medication list, follow up appointments and care instructions reviewed with patient. IVs and ID band removed. R - Patient questions reviewed and addressed prior to discharge. Patient reported pain and was medicated. Patient left the unit in on a stretcher in stable condition. No distress noted. [facility] left with patient @ 0940 to [facility] 02/17/2012 10:27 Ronit Guevara RN * Plan of Care - Sonido Chowdhury RN - 02/17/2012 0105 EDT Problem: PAIN Goal: Patient???s Pain And Discomfort Are Adequately Managed Intervention: Assess pain level Pain is to be assessed: admission, every shift, prior to medication administration, within two hours after pain medication administration, before transfer or discharge and every two hours while on PORTFOLIO ARCHITECT or epidural. Data: Patient reported a 4 out of 10 headache. Patient verbalized, My headache always seems to getworse at night. Action: Pupils equal and reactive to light. Patient alert and oriented x3. Provided PRN oxycodone. Response: Patient reported that his pain decreased to a 2 out of 10. Will continue to assess & monitor & intervene as needed. SONIDO CHOWDHURY RN 02/17/2012 1:02 * Plan of Care - Anabela Mendoza - 02/16/2012 1333 EDT Problem: MOBILITY Goal: Mobility/Activity Is Maintained At Optimum Level For Patient Active Multi-Disciplinary problems: FALL RISK [778440] (02/11/12) PAIN [[id number]] (02/12/12) MOBILITY [933641] (02/13/12) ELIMINATION [512430] (02/14/12) CIRCULATORY STATUS [[id number]] (02/14/12) Data: Pt transferring and ambulating independently in room. Action: Observed pt ambulation in [place] with OT. Response: Pt ambulating with steady gait. CTM for issues with ambulation. Anabela Mendoza RN 02/16/2012 13:31 * Miscellaneous - SCUBA INSTRUCTOR, SCAN 2 - 02/16/2012 0856 EDT * Plan of Care - Cheryl Farnsworth RN - 02/16/2012 0639 EDT Problem: PAIN Goal: Patient???s Pain And Discomfort Are Adequately Managed Pain Note D - The patient reported pain. The reported pain location was neck, shoulder. A - Pain was assessed and treated with Percocet 2 tabs. The pain management techniques were effective. Pt requested pain med x 1 this 12 hr shift. R - . Will continue to assess and treat pain levels as per policy and prn. 02/16/2012 6:37 CHERYL FARNSWORTH RN * Plan of Care - Sarai Mirza RN - 02/15/2012 6865 EDT Problem: PAIN Goal: Patient???s Pain And Discomfort Are Adequately Managed Intervention: Identify appropriate pain tool Active Multi-Disciplinary problems: FALL RISK [751308] (02/11/12) PAIN [356877] (02/12/12) MOBILITY [866186] (02/13/12) ELIMINATION [046805] (02/14/12) CIRCULATORY STATUS [[id number]] (02/14/12) Data: Pt has been declining pain meds most of the day. Pt has been rating his pain at 0-2. Action: Encouraged pt to ask for pain meds before his pain level gets too high. Response: Pt requested Percocet for pain this evening. Pt states good relief. SARAI MIRZA RN 02/15/2012 17:32 * Plan of Care - Argelia Soler RN - 02/15/2012 0507 EDT Problem: PAIN Goal: Patient???s Pain And Discomfort Are Adequately Managed Active Multi-Disciplinary problems: FALL RISK [536911] (02/11/12) PAIN [332659] (02/12/12) MOBILITY [000427] (02/13/12) ELIMINATION [918040] (02/14/12) CIRCULATORY STATUS [[id number]] (02/14/12) Data: Pt complained of 5/10 neck pain. Pt stated that he does not like to take pain medication and is hesitant to take it. Pt was making facial expressions that indicated he was in pain. VSS. Action: Pt encouraged to take pain medication when in pain. Pt given 2 tablets Percocet. Pt repositioned in bed. Response: One hour after receiving pain medication, pt stated that his pain was a 3/10. Two hours after receiving pain medication, pt was noted to be sleeping. Will continue to assess and monitor. ARGELIA SOLER RN 02/15/2012 4:59 * Plan of Care - Marissa Isaac RN - 02/14/2012 1648 EDT Problem: CIRCULATORY STATUS Goal: Patient Has Stable Vital Signs And Fluid Balance Outcome: Ongoing Data: HD# 3 s/p fall out of loft bed at home. Pt baseline bradycardia rate in 50s. Manual SBP 180 both arms; pt asymptomatic, relaxing in bed, NAD. Action: Dr. Rod with BST notified. Response: Plan to give IV Labetalol, waiting for orders. Will continue to monitor. 1900: 10mg IV Labetalol given. SBP now 158. Will continue to monitor. Marissa Isaac RN 02/14/2012 16:42 * Plan of Care - Lety Smith - 02/14/2012 1122 EDT Problem: ELIMINATION Goal: Assess Bowel Sounds, Flatus And Stools Outcome: Ongoing Data: Pts abdomen is slightly distended and he sates he feels full. No BM since admission (02/10). Pt had prune juice with breakfast and scheduled colace and senna. Action: offered to request stronger bowel aids. Response: Pt wants to wait until later today to see if his bowel will move. Lety Smith RN 02/14/2012 11:19 * Plan of Care - Cheryl Farnsworth RN - 02/14/2012 0602 EDT Problem: PAIN Goal: Patient???s Pain And Discomfort Are Adequately Managed Pain Note D - The patient reported pain. The reported pain location was left shoulder and back of head(due madhu-collar). A - Pain was assessed and treated with Percocet. C-Collar care done, neck washed, collar repositioned. . The pain management techniques were effective. R - . Will continue to assess and treat pain levels as per policy and prn. 02/14/2012 6:00 CHERYL FARNSWORTH RN * Plan of Care - Walker Ruiz RN - 02/13/2012 2795 EDT Problem: MOBILITY Goal: Mobility/Activity Is Maintained At Optimum Level For Patient Active Multi-Disciplinary problems: FALL RISK [163572] (02/11/12) PAIN [236999] (02/12/12) MOBILITY [254694] (02/13/12) Data:pt has been working c PT ambulating in [place], making progress, OT involved also Action: medicated c percs which relieve pain Response: mobility has been slowly improving but will need more time, family decided on sub- acute rehab since daughter not able to take care of time signal wirer Walker Ruiz RN 02/13/2012 14:50 * Scanned Note-Null - SCUBA INSTRUCTOR, SCAN 2 - 02/13/2012 1238 EDT * Plan of Care - Argelia Soler RN - 02/13/2012 0301 EDT Problem: PAIN Goal: Patient???s Pain And Discomfort Are Adequately Managed Active Multi-Disciplinary problems: FALL RISK [129889] (02/11/12) PAIN [962548] (02/12/12) Data: Pt complained of 5/10 neck and clavicle pain. VSS. Action: Pt given 2 tablets of Percocet, see MAR. Response: Two hours after receiving pain medication, pt was noted to be sleeping comfortably. Will continue to assess and monitor. ARGELIA SOLER RN 02/13/2012 3:01 * Plan of Care - Argelia Soler RN - 02/12/2012 0508 EDT Problem: PAIN Goal: Patient???s Pain And Discomfort Are Adequately Managed Active Multi-Disciplinary problems: FALL RISK [972157] (02/11/12) PAIN [272460] (02/12/12) Data: Upon awakening this AM, the pt complained of 5/10 neck and clavicle pain. Pt had been pain free throughout the night. VSS. Action: Pt given 2 tablets of Percocet, see MAR. Response: Will continue to assess and monitor. ARGELIA SOLER RN 02/12/2012 5:07 * Scanned Note-Null - SCUBA INSTRUCTOR, SCAN 2 - 02/11/2012 1841 EDT * Plan of Care - Walker Ruiz, RN - 02/11/2012 1710 EDT Problem: FALL RISK Goal: Patient will remain free of falls Active Multi-Disciplinary problems: FALL RISK [338684] (02/11/12) Data: pt transfer to sb03 from ed, pt arrived in stretcher, transfer to bed, family c pt Action:oriented pt to room call light and controls, ordered food, answered questions of family Response: pt settled into new room, notified for family to speak to Walker Ruiz RN 02/11/2012 17:07 * Scanned Note-Null - SCUBA INSTRUCTOR, SCAN 2 - 02/11/2012 1512 EDT * Scanned Note-Null - SCUBA INSTRUCTOR, SCAN 2 - 02/11/2012 1512 EDT * Scanned Note-Null - SCUBA INSTRUCTOR, SCAN 2 - 02/11/2012 1512 EDT documented in this encounter Plan of Treatment Pending Results Name Type Priority Associated Diagnoses Date /Time OUTSIDE IMAGES - CT NEURO Imaging 02/11/2012 13:46 EDT OUTSIDE IMAGES - PLAIN FILM MSK Imaging 02/11/2012 13:46 EDT OUTSIDE IMAGES - PLAIN FILM MSK Imaging 02/11/2012 13:46 EDT documented as of this encounter Procedures Procedure Name Priority Date/Time Associated Diagnosis Comments ECG REPORT - SCANNED 02/20/2012 19:49 EDT BUN Routine 02/14/2012 6:35 EDT CREATININE Routine 02/14/2012 6:35 EDT ELECTROLYTES Routine 02/14/2012 6:35 EDT BUN Routine 02/13/2012 6:39 EDT CREATININE Routine 02/13/2012 6:39 EDT ELECTROLYTES Routine 02/13/2012 6:39 EDT BUN Routine 02/12/2012 6:21 EDT CREATININE Routine 02/12/2012 6:21 EDT ELECTROLYTES Routine 02/12/2012 6:21 EDT MRSA PCR Routine 02/11/2012 16:32 EDT CERVICAL SPINE 2-3 VIEWS Routine 02/11/2012 13:32 EDT CLAVICLE COMPLETE Routine 02/11/2012 13: [address] ANGIO NECK W CONTRAST 02/11/2012 12:[address] HEAD WO CONTRAST 02/11/2012 1 2:27 EDT PORTABLE CHEST 1 VIEW STAT 02/11/2012 11:59 EDT PELVIS 1 OR 2 VIEWS STAT 02/11/2012 1 1:59 EDT SCREENING GLUCOSE STAT 02/11/2012 11: 50 EDT HOLD GREEN TOP STAT 02/11/2012 11:50 EDT HOLD BLUE TOP STAT 02/11/2012 11:50 EDT COMPLETE BLOOD COUNT AND DIFFERENTIAL STAT 02/11/2012 11:50 EDT BUN STAT 02/11/2012 11:50 EDT CREATININE STAT 02/11/2012 11:50 EDT ELECTROLYTES STAT 02/11/2012 11:50 EDT BLOOD BANK HOLD STAT 02/11/2012 11:30 EDT documented in this encounter Results * ECG REPORT - SCANNED (02/20/2012 19:49 EDT) 02/20/2012 19:4 9 EDT Narrative Transcriptions SCUBA INSTRUCTOR, SCAN 2 - 02/20/2012 19:49 EDT Scan 2 Health And Safety Instructor PROCEDURE/MINOR BOBBY GICAL ORDERABLES * CREATININE (02/14/2012 6:35 EDT) Creatinine 0.69 0.66 - 1.25 mg/dl [facility] GFR, Calculated >60 >60 ml/min/1.7 3m2 [facility] Blood specimen (specimen) 02/14/2012 6:35 EDT 02/14/2012 7:44 EDT Federico FONG-C CHEMISTRY & BLOOD GAS ORDERABLES Performing Organization Address City/[facility] [[email or web address]] Co de Phone Number [facility] [address] [place] [address] * BUN (02/14/2012 6:35 EDT) BUN 18 10 - 26 mg/dl [facility] Blood specimen (specimen) 02/14/2012 6:35 EDT 02/14/2012 7:44 EDT Federico FONG-C CHEMISTRY & BLOOD GAS ORDERABLES Performing Organization Address City/[facility]/ZIP Co de Phone Number [facility] [address] [place] [address] * ELECTROLYTES (02/14/2012 6:35 EDT) Sodium 137 136 - 145 mEq/L [facility] Potassium 4.2 3.5 - 5.0 mEq/L [facility] Chloride 101 96 - 110 mEq/L [facility] CO2 27 24 - 32 mEq/L [facility] Blood specimen (specimen) 02/14/2012 6:35 EDT 02/14/2012 7:44 EDT Federico Doherty PA-C CHEMISTRY & BLOOD GAS ORDERABLES Performing Organization Address [facility] [[email or web address]] Co de Phone Number [facility] [address] [place] [address] * CREATININE (02/13/2012 6:39 EDT) Creatinine 0.69 0.66 - 1.25 mg/dl [facility] GFR, Calculated >60 >60 ml/min/1.7 3m2 [facility] Blood specimen (specimen) 02/13/2012 6:39 EDT 02/13/2012 7:49 EDT Federico Doherty PA-C CHEMISTRY & BLOOD GAS ORDERABLES Performing Organization Address [facility] [[email or web address]] Co de Phone Number [facility] [address] [place] [address] * BUN (02/13/2012 6:39 EDT) BUN 17 10 - 26 mg/dl [facility] Blood specimen (specimen) 02/13/2012 6:39 EDT 02/13/2012 7:49 EDT Federico Doherty PA-C CHEMISTRY & BLOOD GAS ORDERABLES Performing Organization Address [facility] [[email or web address]] Co de Phone Number [facility] [address] [place] [address] * ELECTROLYTES (02/13/2012 6:39 EDT) Sodium 140 136 - 145 mEq/L [facility] Potassium 4.0 3.5 - 5.0 mEq/L [facility] Chloride 102 96 - 110 mEq/L [facility] CO2 26 24 - 32 mEq/L [facility] Blood specimen (specimen) 02/13/2012 6:39 EDT 02/13/2012 7:49 EDT Federico Doherty PA-C CHEMISTRY & BLOOD GAS ORDERABLES Performing Organization Address [facility] [[email or web address]] Co de Phone Number [facility] [address] [place] [address] * CREATININE (02/12/2012 6:21 EDT) Creatinine 0.74 0.66 - 1.25 mg/dl [facility], Calculated >60 >60 ml/min/1.7 3m2 [facility] Blood specimen (specimen) 02/12/2012 6:21 EDT 02/12/2012 6:53 EDT Federico Doherty PA-C CHEMISTRY & BLOOD GAS ORDERABLES Performing Organization Address [facility] de Phone Number [facility] [address] [place] [address] * BUN (02/12/2012 6:21 EDT) BUN 18 10 - 26 mg/dl [facility] Blood specimen (specimen) 02/12/2012 6:21 EDT 02/12/2012 6:53 EDT Federico Doherty PA-C CHEMISTRY & BLOOD GAS ORDERABLES Performing Organization Address [facility] de Phone Number [facility] [address] [place] [address] * ELECTROLYTES (02/12/2012 6:21 EDT) Sodium 138 136 - 145 mEq/L [facility] Potassium 4.2 3.5 - 5.0 mEq/L [facility] Chloride 102 96 - 110 mEq/L [facility] CO2 24 24 - 32 mEq/L [facility] Blood specimen (specimen) 02/12/2012 6:21 EDT 02/12/2012 6:53 EDT Federico Doherty PA-C CHEMISTRY & BLOOD GAS ORDERABLES Performing Organization Address [facility] [[email or web address]] Co de Phone Number [facility] [address] [place] [address] * MRSA MOLECULAR DETECTION (02/11/2012 16:32 EDT) Specimen Description Nasal [facility] Result No Staphylococcus aureus detected by PCR. [facility] Specimen of unknown material (specimen) 02/11/2012 16:32 EDT 02/11/2012 17:01 EDT Federico Doherty PA-C MICROBIOLOGY - GE NERAL ORDERABLES Performing Organization Address [facility] de Phone Number [facility] [address] [place] [address] * CERVICAL SPINE 2-3 VIEWS (02/11/2012 13:32 EDT) Anatomical Region Laterality Modality Other 02/11/2012 13:3 2 EDT 02/11/2012 13:57 EDT Narrative 02/11/2012 13:57 EDT CERVICAL SPINE 2-3 VIEWS ??Feb 11, 2012 01:32:00 PM Signs and Symptoms: ??c1 fx Comparison: CT same date Findings: There is a fracture at C1 as seen on prior CT imaging. This includes fracture through the left lateral mass the C1 which is laterally displaced with respect to the left lateral mass of C2 and perhaps with respect to the left occipital condyle which is poorly visualized. There is fusion of C2 and C3 which is partially visualized. Procedure Note 02/11/2012 CERVICAL SPINE 2-3 VIEWS Feb 11, 2012 01:32:00 PM Signs and Symptoms: c1 fx Comparison: CT same date Findings: There is a fracture at C1 as seen on prior CT imaging. This includes fracture through the left lateral mass the C1 which is laterally displaced with respect to the left lateral mass of C2 and perhaps with respect to the left occipital condyle which is poorly visualized. There is fusion of C2 and C3 which is partially visualized. Rashad Ramirez MD [facility] ORDERABLES * CLAVICLE COMPLETE (02/11/2012 13:32 EDT) Anatomical Region Laterality Modality Other 02/11/2012 13:3 2 EDT 02/11/2012 14:11 EDT Narrative 02/11/2012 14:11 EDT CLAVICLE COMPLETE ??Feb 11, 2012 01:32:00 PM Signs and Symptoms: ??clav fracture Comparison: Chest radiograph CT same date Findings: Two views of the left clavicle were obtained. There is an obliquely oriented fracture through the midshaft of the left clavicle with a small amount of inferior angulation and approximately 5 mm of inferior displacement of the distal fragment. Some ill-defined mineralized density projecting caudal to the midshaft of the clavicle near the insertion of the coracoclavicular ligament may relate to avulsion injury. There is no widening of the coracoclavicular intraosseous distance. Degenerative changes are seen at the AC joint. ?? Impression: Minimally inferiorly angulated and displaced fracture at the midshaft of the left clavicle. Procedure Note 02/11/2012 CLAVICLE COMPLETE Feb 11, 2012 01:32:00 PM Signs and Symptoms: clav fracture Comparison: Chest radiograph CT same date Findings: Two views of the left clavicle were obtained. There is an obliquely oriented fracture through the midshaft of the left clavicle with a small amount of inferior angulation and approximately 5 mm of inferior displacement of the distal fragment. Some ill-defined mineralized density projecting caudal to the midshaft of the clavicle near the insertion of the coracoclavicular ligament may relate to avulsion injury. There is no widening of the coracoclavicular intraosseous distance. Degenerative changes are seen at the AC joint. Impression: Minimally inferiorly angulated and displaced fracture at the midshaft of the left clavicle. Rashad Ramirez MD [facility] NG ORDERABLES * CT ANGIO NECK (02/11/2012 12:29 EDT) Anatomical Region Laterality Modality Other 02/11/2012 12:2 9 EDT 02/11/2012 14:20 EDT Narrative 02/11/2012 14:20 EDT CTA NECK February 11, 2012 Indication: Vertebral artery injury after C1 fracture? Comparison: None available. Technique: Contrast enhanced CT angiography of the neck was performed with multiplanar reformations. Findings: Fracture of the anterior arch of C1 is noted on the left with about 7 mm of distraction. Minimally displaced comminuted fracture of the posterior arch is noted just to the right of midline. On sagittal images, the atlantodental interval is within normal limits. There is overhanging of the left lateral mass of C1 relative is the lateral mass of C2. There is swelling of the prevertebral soft tissues. Craniocervical alignment is anatomic. There is less than 2 mm of retrolisthesis of C4 on C5. No splaying of the disc spaces or posterior elements is identified. There is a rightward convex curvature of the cervical spine. 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 There is congenital fusion of the vertebral bodies and posterior elements from C2 to C4. There is degenerative spurring at the atlantoaxial joints as well as ligamentous calcification. There is right neuroforaminal stenosis at C2-C3 and C3-C4 due to congenital abnormalities. There is bilateral neuroforaminal stenosis bilaterally at C4-C5, C5-C6 and C6-C7 due to facet hypertrophy and uncovertebral spurring. Posterior disc osteophyte complexes produce mild central spinal narrowing at C4-C5 and C5-C6. Atherosclerotic calcification is present in the aortic arch, the proximal great vessels and at the carotid bifurcations. There is no high-grade stenosis of the subclavian or brachiocephalic arteries identified. Calcific plaque is noted at the origin of the nondominant right vertebral artery and with at least moderate stenosis. There is at least moderate stenosis of the origin of the dominant left vertebral artery. No dissection flap or pseudoaneurysm is identified. The carotid arteries appear widely patent. There is mixed plaque in the carotid bulbs on the right and the left with less than 30% stenosis by NASCET criteria. Fracture of the left mid clavicle is noted. There is a calcified mediastinal lymph node present. Calcified nodule in the right upper lobe is likely related to remote granulomatous disease as well. There is some stranding within the fat deep to the left sternocleidomastoid muscle which may be posttraumatic. Small cervical lymph nodes are noted throughout the neck. Impression: 1. Fractures of the anterior and posterior arch of C1. 2. Left clavicle fracture. 3. 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 4. Cervical degenerative disc and degenerative joint disease. 5. Evidence of prior granulomatous disease in the chest. 6. 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 7. Less than 30% stenosis of the internal carotid artery origins on the right and the left. 8. No arterial dissection or pseudoaneurysm identified. Procedure Note 02/11/2012 CTA NECK February 11, 2012 Indication: Vertebral artery injury after C1 fracture? Comparison: None available. Technique: Contrast enhanced CT angiography of the neck was performed with multiplanar reformations. Findings: Fracture of the anterior arch of C1 is noted on the left with about 7 mm of distraction. Minimally displaced comminuted fracture of the posterior arch is noted just to the right of midline. On sagittal images, the atlantodental interval is within normal limits. There is overhanging of the left lateral mass of C1 relative is the lateral mass of C2. There is swelling of the prevertebral soft tissues. Craniocervical alignment is anatomic. There is less than 2 mm of retrolisthesis of C4 on C5. No splaying of the disc spaces or posterior elements is identified. There is a rightward convex curvature of the cervical spine. 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 There is congenital fusion of the vertebral bodies and posterior elements from C2 to C4. There is degenerative spurring at the atlantoaxial joints as well as ligamentous calcification. There is right neuroforaminal stenosis at C2-C3 and C3-C4 due to congenital abnormalities. There is bilateral neuroforaminal stenosis bilaterally at C4-C5, C5-C6 and C6-C7 due to facet hypertrophy and uncovertebral spurring. Posterior disc osteophyte complexes produce mild central spinal narrowing at C4-C5 and C5-C6. Atherosclerotic calcification is present in the aortic arch, the proximal great vessels and at the carotid bifurcations. There is no high-grade stenosis of the subclavian or brachiocephalic arteries identified. Calcific plaque is noted at the origin of the nondominant right vertebral artery and with at least moderate stenosis. There is at least moderate stenosis of the origin of the dominant left vertebral artery. No dissection flap or pseudoaneurysm is identified. The carotid arteries appear widely patent. There is mixed plaque in the carotid bulbs on the right and the left with less than 30% stenosis by NASCET criteria. Fracture of the left mid clavicle is noted. There is a calcified mediastinal lymph node present. Calcified nodule in the right upper lobe is likely related to remote granulomatous disease as well. There is some stranding within the fat deep to the left sternocleidomastoid muscle which may be posttraumatic. Small cervical lymph nodes are noted throughout the neck. Impression: 1. Fractures of the anterior and posterior arch of C1. 2. Left clavicle fracture. 3. 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 4. Cervical degenerative disc and degenerative joint disease. 5. Evidence of prior granulomatous disease in the chest. 6. 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 7. Less than 30% stenosis of the internal carotid artery origins on the right and the left. 8. No arterial dissection or pseudoaneurysm identified. Federico Doherty PA-C [facility] ORDERABLES * CT HEAD WO CONTRAST (02/11/2012 12:27 EDT) Anatomical Region Laterality Modality Other 02/11/2012 12:2 7 EDT 02/11/2012 14:20 EDT Narrative 02/11/2012 14:[address] HEAD WITHOUT CONTRAST February 11, 2012 Indication: Fall from bed. Rule out bleed. Comparison: None available. Findings: There is a large posterior scalp hematoma on the right. No calvarial fracture is demonstrated. The ventricles and sulci are age-appropriate. There is no midline shift. The basilar cisterns are patent. No intracranial hemorrhage, abnormal extra-axial fluid collection or space-occupying lesion is identified. Vascular calcifications are present consistent with intracranial atherosclerosis. There is fluid and mucosal thickening in the right maxillary sinus. Thickening and sclerosis of the right maxillary sinus jones is noted consistent with chronic inflammation. No fracture of the sinus jones is demonstrated. The mastoid air cells and middle ear cavities are clear. No gross orbital abnormality is demonstrated. Fractures of the anterior and posterior arch of C1 are partially visualized. Impression: 1. Right posterior scalp hematoma. 2. No calvarial fracture or intracranial hemorrhage identified. 3. Intracranial atherosclerosis. 4. Chronic right maxillary sinusitis with low-density fluid in the sinus. Correlation for signs and symptoms of acute sinusitis is suggested. 5. C1 fractures. Procedure Note 02/11/2012 CT HEAD WITHOUT CONTRAST February 11, 2012 Indication: Fall from bed. Rule out bleed. Comparison: None available. Findings: There is a large posterior scalp hematoma on the right. No calvarial fracture is demonstrated. The ventricles and sulci are age-appropriate. There is no midline shift. The basilar cisterns are patent. No intracranial hemorrhage, abnormal extra-axial fluid collection or space-occupying lesion is identified. Vascular calcifications are present consistent with intracranial atherosclerosis. There is fluid and mucosal thickening in the right maxillary sinus. Thickening and sclerosis of the right maxillary sinus jones is noted consistent with chronic inflammation. No fracture of the sinus jones is demonstrated. The mastoid air cells and middle ear cavities are clear. No gross orbital abnormality is demonstrated. Fractures of the anterior and posterior arch of C1 are partially visualized. Impression: 1. Right posterior scalp hematoma. 2. No calvarial fracture or intracranial hemorrhage identified. 3. Intracranial atherosclerosis. 4. Chronic right maxillary sinusitis with low-density fluid in the sinus. Correlation for signs and symptoms of acute sinusitis is suggested. 5. C1 fractures. Federico Doherty PA-C [facility]MM[facility] CT ORDERABLES * PELVIS 1 OR 2 VIEWS (02/11/2012 11:59 EDT) Anatomical Region Laterality Modality Other 02/11/2012 11:5 9 EDT 02/11/2012 12:09 EDT Narrative 02/11/2012 12:09 EDT PELVIS 1 OR 2 VIEWS ??Feb 11, 2012 11:59:00 AM Clinical history/Comments: fall out of loft - r/o acute injury Findings: Portable frontal radiograph of pelvis shows no acute bony pathology. No hip dislocation. Degenerative changes especially at symphysis noted. Procedure Note 02/11/2012 PELVIS 1 OR 2 VIEWS Feb 11, 2012 11:59:00 AM Clinical history/Comments: fall out of loft - r/o acute injury Findings: Portable frontal radiograph of pelvis shows no acute bony pathology. No hip dislocation. Degenerative changes especially at symphysis noted. Federico Doherty PA-C [facility] ORDERABLES * PORTABLE CHEST 1 VIEW (02/11/2012 11:59 EDT) Anatomical Region Laterality Modality Other 02/11/2012 11:5 9 EDT 02/11/2012 12:11 EDT Narrative 02/11/2012 12:11 EDT PORTABLE CHEST 1 VIEW ??Feb 11, 2012 11:59:00 AM Clinical history/Comments: fall from bed - r/o trauma Findings: Portable supine view of the chest shows lungs are grossly clear, no pleural effusion or contusion. Heart and mediastinal contours within normal limits for projection, no mediastinal widening. No sign of pneumothorax on this supine view. Shoulders partially included, signs of significant bilateral glenohumeral joint arthrosis. Procedure Note 02/11/2012 PORTABLE CHEST 1 VIEW Feb 11, 2012 11:59:00 AM Clinical history/Comments: fall from bed - r/o trauma Findings: Portable supine view of the chest shows lungs are grossly clear, no pleural effusion or contusion. Heart and mediastinal contours within normal limits for projection, no mediastinal widening. No sign of pneumothorax on this supine view. Shoulders partially included, signs of significant bilateral glenohumeral joint arthrosis. Federico Doherty PA-C [facility] ORDERABLES * HOLD GREEN TOP (02/11/2012 11:50 EDT) Hold Green Top Hold for further testing. Specimen will be held for 5 days. JOE CALLES Blood specimen (specimen) 02/11/2012 11:50 EDT 02/11/2012 11:58 EDT Federico Doherty PA-C LAB INFO SERVICE AND SUPPORT & PHONE RESULT [facility] [address] [place] [address] * HOLD BLUE TOP (02/11/2012 11:50 EDT) Hold Blue Top Sample for coagulation will be discarded after 4 hours [facility] Blood specimen (specimen) 02/11/2012 11:50 EDT 02/11/2012 11:58 EDT Federico Doherty PA-C LAB INFO SERVICE AND SUPPORT & PHONE RESULT Performing Organization Address [facility] Phone Number [facility] [address] [place] [address] * (ABNORMAL) SCREENING GLUCOSE (02/11/2012 11:50 EDT) Pathologist [facility] [place] Glucose, Screening 122(H) 70 - 100 mg/dl [facility] Blood specimen (specimen) 02/11/2012 11:50 EDT 02/11/2012 11:58 EDT Federico Doherty PA-C CHEMISTRY & BLOOD GAS ORDERABLES Performing Organization Address [facility] Phone Number [facility] [address] [place] [address] * CREATININE (02/11/2012 11:50 EDT) Pathologist [facility] [place] Creatinine 0.71 0.66 - 1.25 mg/dl [facility] GFR, Calculated >60 >60 ml/min/1.7 3m2 [facility] Blood specimen (specimen) 02/11/2012 11:50 EDT 02/11/2012 11:58 EDT Federico Doherty PA-C CHEMISTRY & BLOOD GAS ORDERABLES Performing Organization Address [facility] de Phone Number [facility] [address] [place] [address] * BUN (02/11/2012 11:50 EDT) Pathologist [facility] [place] BUN 19 10 - 26 mg/dl [facility] Blood specimen (specimen) 02/11/2012 11:50 EDT 02/11/2012 11:58 EDT Federico Doherty PA-C CHEMISTRY & BLOOD GAS ORDERABLES Performing Organization Address City/[facility]/ZIP Co de Phone Number [facility] [address] [place] [address] * ELECTROLYTES (02/11/2012 11:50 EDT) Sodium 136 136 - 145 mEq/L [facility] Potassium 4.6 3.5 - 5.0 mEq/L [facility] Chloride 100 96 - 110 mEq/L [facility] CO2 28 24 - 32 mEq/L [facility] Blood specimen (specimen) 02/11/2012 11:50 EDT 02/11/2012 11:58 EDT Federico Doherty PA-C CHEMISTRY & BLOOD GAS ORDERABLES Performing Organization Address [facility] de Phone Number [facility] [address] [place] [address] * (ABNORMAL) HEMAGRAM AND DIFFERENTIAL (02/11/2012 11:50 EDT) WBC 7.47 4.0 - 10.4 K/cmm [facility] RBC 4.56 4.36 - 5.78 M/cmm [facility] Hemoglobin 14.1 13.8 - 17.3 gm/dl [facility] HCT 40.3 39.5 - 50.2 % [facility] MCV 88 81 - 95 fl [facility] MCH 30.9 27.6 - 33.0 pg [facility] MCHC 35.0 32.8 - 36.4 gm/dl [facility] PLT 142 141 - 320 K/cmm [facility] RDW-CV 14.0 11.8 - 14.1 % [facility] % Neutrophils 87.0(H) 45.5 - 79.7 % [facility] % Lymphocytes 8.5(L) 15.0 - 46.8 % [facility] % Monocytes 4.2 1.8 - 12.0 % [facility] % Eosinophils 0.1(L) 0.6 - 6.9 % [facility] % Basophils 0.2 0.2 - 1.4 % [facility] ABS Neutrophils 6.50 2.20 - 8.85 K/cmm [facility] ABS Lymphs 0.64(L) 1.09 - 3.30 K/cmm [facility] ABS Monocytes 0.31 0.1 - 0.8 K/cmm [facility] ABS Eosinophils 0.00(L) 0.03 - 0.61 K/cmm [facility] ABS Basophils 0.01 0.01 - 0.11 K/cmm [facility] Type of Diff: Automated [facility] Blood specimen (specimen) 02/11/2012 11:50 EDT 02/11/2012 11:58 EDT Federico Doherty PA-C PACKAGES & DNA IN OBE ORDERABLES Performing Organization Address [facility] de Phone Number [facility] [address] [place] [address] * BLOOD BANK SPECIMEN HOLD (02/11/2012 11:30 EDT) Hold BB Spec will exp at 23:59, 3 days from collect date [facility] Comment:SAMPLE EXPIRES ON @ 23:59 Blood specimen (specimen) 02/11/2012 11:30 EDT 02/11/2012 11:30 EDT Federico Doherty PA-C BLOOD BANK TESTS Performing Organization Address [facility] de Phone Number [facility] [address] [place] [address] documented in this encounter Visit Diagnoses Diagnosis Cervical spine fracture (HCC-CMS) Closed fracture of cervical vertebra, unspecified level without mention of spinal cord injury Fall Unspecified fall Cervical spine fracture (HCC-CMS) Closed fracture of cervical vertebra, unspecified level without mention of spinal cord injury Fracture of left clavicle Unspecified part of closed fracture of clavicle documented in this encounter Administered Medications Inactive Administered Medications - up to 3 most recent administrations Medication Order MAR Action Action Date Dose Rate Site atenolol (TENORMIN) tablet 25 mg 25 mg, oral, DAILY, First dose on Roya 02/11/12 at 1430, Until Discontinued, Routine Given 02/17/2012 8:35 EDT 25 mg Given 02/16/2012 9:28 EDT 25 mg Given 02/15/2012 9:11 EDT 25 mg bisacodyl (DULCOLAX) suppository 10 mg 10 mg, rectal, DAILY PRN, Starting on Thu02/14/12 at 1402, Until Thu02/17/12 at 1202, Constipation, Routine Given 02/14/2012 21:14 EDT 10 mg docusate sodium (COLACE) capsule 200 mg 200 mg, oral, 2 TIMES DAILY, First dose on Thu02/11/12 at 2100, Until Discontinued, STAT Given 02/17/2012 8:35 EDT 200 m g Given 02/16/2012 20:29 EDT 200 mg Given 02/16/2012 9:28 EDT 200 mg enoxaparin (LOVENOX) injection 30 mg 30 mg, subcutaneous, EVERY 12 HOURS, First dose (after last modification) on Roya 02/12/12 at 2100, Until Discontinued, Routine Given 02/17/2012 8:34 EDT 30 mg Given 02/16/2012 20:30 EDT 30 mg Given 02/16/2012 9:28 EDT 30 mg enoxaparin (LOVENOX) injection 40 mg 40 mg, subcutaneous, DAILY, First dose on Thu02/11/12 at 1915, Until Discontinued, Routine Given 02/12/2012 8:01 EDT 40 mg labetalol (TRANDATE) 10 mg in dextrose 5% (D5W) 50 mL IVPB 10 mg, intravenous, Administer over 10 Minutes, NOW X1, 1 dose, On Thu02/14/12 at 1745, Routine Given 02/14/2012 17:38 EDT 10 mg magnesium hydroxide (MILK OF MAGNESIA) 400 mg/5 mL suspension 30 mL 30 mL, oral, AT BEDTIME PRN, Starting on Thu02/14/12 at 1402, Until Thu02/17/12 at 1202, Constipation, Routine Given 02/14/2012 17:38 EDT 30 mL oxycodone-acetaminophen (PERCOCET) 5-325 mg per tablet 1-2 Tab 1-2 Tablet, oral, EVERY 4 HOURS PRN, Starting on Thu02/11/12 at 1558, Until Thu02/17/12 at 1202, Pain, STAT Given 02/17/2012 8:35 EDT 2 Tablets Given 02/16/2012 22:54 EDT 2 Tablets Given 02/15/2012 23:55 EDT 2 Tablets senna (SENOKOT) tablet 2 Tab 2 Tablet, oral, 2 TIMES DAILY, First dose on Thu02/11/12 at 2100, Until Discontinued, STAT Given 02/17/2012 8:3 4 EDT 2 Tablets Given 02/16/2012 20:29 EDT 2 Tablets Given 02/16/2012 9:28 EDT 2 Tablets documented in this encounter Active and Recently Administered Medications Times are shown in EDT. Scheduled Medication Order 02/15/2012 02/16/2012 02/17/2012 atenolol (TENORMIN) tablet 25 mg (CANCELED) 25 mg, oral, DAILY, First dose on Thu02/12/12 at 1430, Until Discontinued, Routine 0911 (Given - Provider: Sarai Mirza RN) 927 (Given - Provider: Anabela Mendoza) 0835 (Given - Provider: Ronit Guevara RN) docusate sodium (COLACE) capsule 200 mg(Linked Group 1) 200 mg, oral, 2 TIMES DAILY, First dose on Thu02/11/12 at 2100, Until Discontinued, STAT 0911 (Given - Provider: Sarai Mirza RN)2199 (Given - Provider: Vincenzo Waddell RN) 09 (Given - Provider: Anabela Mendoza)2028 (Given - Provider: Sonido Chowdhury, DAVID) 0835 (Given - Provider: Ronit Guevara, DAVID) enoxaparin (LOVENOX) injection 30 mg (CANCELED) 30 mg, subcutaneous, EVERY 12 HOURS, First dose (after last modification) on Thu02/12/12 at 2100, Until Discontinued, Routine 0911 (Given - Provider: Sarai Mirza RN)2199 (Given - Provider: Vincenzo Waddell RN) 09 (Given - Provider: Anabela Mendoza)2029 (Given - Provider: Sonido Chowdhury RN) 0834 (Given - Provider: Ronit Guevara, DAVID) senna (SENOKOT) tablet 2 Tab (CANCELED) 2 Tablet, oral, 2 TIMES DAILY, First dose on Thu02/11/12 at 2100, Until Discontinued, STAT 0911 (Given - Provider: Sarai Mirza, RN)2200 (Given - Provider: Vincenzo Waddell, RN) 0928 (Given - Provider: Anabela Mendoza)202 (Given - Provider: Sonido Chowdhury, RN) 0834 (Given - Provider: Ronit Guevara, RN) PRN Medication Order 02/15/2012 02/16/2012 02/17/2012 oxycodone-acetaminophe n (PERCOCET) 5-325 mg per tablet 1-2 Tab 1-2 Tablet, oral, EVERY 4 HOURS PRN, Starting on Thu02/11/12 at 1558, Until Thu02/17/12 at 1202, Pain, STAT 0115 (Given - Provider: Argelia Soler, DAVID)1553 (Given - Provider: Sarai Mirza, RN)2355 (Given - Provider: Cheryl Farnsworth, DAVID) 2254 (Given - Provider: Sonido Chowdhury, DAVID) 0835 (Given - Provider: Ronit Guevara, DAVID) Linked Groups Order Group 1: docusate sodium (COLACE) capsule 200 mgJump to med 200 mg, oral, 2 TIMES DAILY, First dose on Thu02/11/12 at 2100, Until Discontinued, STAT Or docusate (COLACE) liquid 100 mg (CANCELED) 100 mg, per ng tube, 2 TIMES DAILY, First dose on Thu02/11/12 at 2100, Until Discontinued, STAT documented in this encounter Orders Medications Ordered That Connor ht Not Have Been Administered Count Last Ordered Date First Ordered Date labetalol (TRANDATE) injection 10 mg 1 01/29 acetaminophen (TYLENOL) tablet 650 mg 1 docusate (COLACE) liquid 100 mg 1 2 ondansetron (PF) (ZOFRAN) injection 2-4 mg 1 02/11/2012 Nursing Count Last Ordered Date First Orde red Date INSERT PERIPHERAL IV 1 02/11/2012 PULSE OXIMETRY 1 02/11/2012 OT Count Last Ordered Date First Orde red Date OT EVALUATION AND TREAT 1 02/11/2012 OT HEAD INJURY MINI SCREEN 1 02/11/2012 IV Count Last Ordered Date First Orde red Date IV REQUEST 1 02/14/2012 Admission Count Last Ordered Date First Orde red Date STATUS: INPATIENT ACUTE ADMISSION 2 012 Transfer Count Last Ordered Date First Orde red Date NOTIFY PPS OF DISCHARGE COMPLETE 1 02/17/20 12 PPS NOTIFICATION OF PATIENT ARRIVAL ON UNIT 1 02/11/2012 TEACHING SERVICE 1 02/11/2012 Discharge Count Last Ordered Date First Orde red Date DISCHARGE PATIENT 1 02/17/2012 documented in this encounter Care Teams Speech Assistant Relationship Specialty Start Date End Date Giorgi Mueller MD [address] [place] [address] PCP - General 02/11/12 06/06/15 documented as of this encounter
--- OUTSIDE RECORDS SUMMARY | 2024-06-06 19:14 | XMS_ITS | Encounter Summary ---
Author Organization [facility] Address [address] [place] [address] Care Team Providers Care Dental Services Director Name Role Phone Giorgi Morales MD Primary Care Provider [phone] Reason for Referral * Radiology Services (Routine/Next Available) - Closed Specialty Diagnoses / Procedures Referred By Enedina t Referred To Contact Diagnoses Neck pain Procedures CERVICAL SPINE 2-3 VIEWS Eric Gannon MD [address] [place] [phone] Referral ID Status Reason Start Date Expiration Date Visits Re quested Visits Authorized [id number] Closed 02/25/2012 1 1 Reason for Visit * Reason Onset Date Comments Pre-visit Orders 02/25/2012 Encounter Details Date Type Department Care Team (Late st Contact Info) Description 02/25/2012 Orders Only [facility] Spine Program - [address] [place] [address] Eric Gannon MD [address] [place] [phone] Neck pain (Primary Dx) Social History Tobacco Use Types Packs/Day Years [...] Procedure Name Priority Date/Time Associated Diagnosis Comments CERVICAL SPINE 2-3 VIEWS Routine 03/05/2012 13:27 EDT Neck pain documented in this encounter Results * CERVICAL SPINE 2-3 VIEWS (03/05/2012 13:27 EDT) Anatomical Region Laterality Modality Other 03/05/2012 13:2 7 EDT 03/10/2012 20:14 EDT Narrative 03/10/2012 20:14 EDT CERVICAL SPINE 2-3 VIEWS ??Mar 05, 2012 01:27:00 PM Signs and Symptoms/Comments: ?? [id number] Neck Pain; s/p C1 fracture 02/11/[address] Gannon, 1258 03/05/12 HLR Comparison: Cervical spine CT 02/11/2012 and radiograph 02/11/2012 Findings: Frontal, odontoid and lateral views were obtained. The cervical spine is only visualized through C-5 on the lateral view due to obscuration by the patient's shoulders. The head is also tilted to the left. The known fracture through the left arch of C1 is not visible; however, the left lateral mass of C1 remains displaced laterally. The C2 and 3 bodies appear to be fused. Procedure Note 03/10/2012 CERVICAL SPINE 2-3 VIEWS Mar 05, 2012 01:27:00 PM Signs and Symptoms/Comments: [id number] Neck Pain; s/p C1 fracture 02/11/[address] Gannon, 1258 03/05/12 HLR Comparison: Cervical spine CT 02/11/2012 and radiograph 02/11/2012 Findings: Frontal, odontoid and lateral views were obtained. The cervical spine is only visualized through C-5 on the lateral view due to obscuration by the patient's shoulders. The head is also tilted to the left. The known fracture through the left arch of C1 is not visible; however, the left lateral mass of C1 remains displaced laterally. The C2 and 3 bodies appear to be fused. Eric Gannon MD [facility] NG ORDERABLES documented in this encounter Visit Diagnoses Diagnosis Neck pain- Primary Cervicalgia documented in this encounter Care Teams Dental Services Director Relationship Specialty Start Date End Date Giorgi Morales MD [address] [place] [address] PCP - General 02/11/12 06/06/15 documented as of this encounter
--- OUTSIDE RECORDS SUMMARY | 2024-06-06 19:14 | XMS_ITS | Encounter Summary ---
Author Organization [facility] Address [address] [place] [address] Care Team Providers Care Daily Release And Dupe Printer Name Role Phone Unavailable Primary Care Provider Unavailabl e Encounter Details Date Type Department Care Team (Late st Contact Info) Description 01/11/2007 Before PRISM Converted Visit ([facility]) [facility] - Maple conversion [address] [place] [address] [place] [address] [place] [id number] Social History Tobacco Use Types Packs/Day Years Used Date Smoking Tobacco: Never Assessed Sex and Gender Information Value Date Recorded Sex Assigned at Not on file Gender Identity Not on file Sexual Orientation Not on file documented as of this encounter Plan of Treatment Not on file documented as of this encounter Visit Diagnoses * Evaluation - [place] Nurse - 07/03/2009 1216 EST NEUROLOGY HE[facility] CARE SERVICE - [facility] NEW PATIENT EVALUATION - 01/11/2007 HISTORY OF PRESENT ILLNESS Mr. Gil is a 66-year-old right-handed gentleman who is being seen at the request of Dr. Giorgi Morales for evaluation of a possible seizure. Mr. Gil states that somewhere in the last two weeks of November, he had a spell with loss of consciousness. He remembers waking up in the morning in his usual state of health feeling fine, eating breakfast perhis usual routine, and driving running errands with his son. Mr. Gil states that he pulled into a local general store near his hometown while his son went in to buy something. He relates having a feeling of extreme fatigue and lightheadedness as though he may pass out while waiting in the car. He proceeded to lay down on his side and shortly thereafter lost consciousness. The next thing he remembers is his son shaking his and asking him ifhe was okay. He states that this was at maximum 5-10 minutes after passing out. He recalls hearing and understanding his son, but feeling too weak and tired to open his eyes. However, he did respond by saying ???Im okay.?? Mr. Gil states that his son stated that he was shaking all over during this time. Weasked Mr. Gil if we could get ahold of his son in order to get further history of this episode. However, Mr. Gil refused this. Per notes supplied by Dr. Morales, apparently there was a trained care information associate there at the time. She had noted some right hand and head trembling. She also noted that he wasdiaphoretic and his speech was slurred. He was carried out of the car and placed in the general store to lay down. Per Dr. Benedict, the care information associate on the scene felt that the pulse was initially thready, but improved after lying Mr. Gil down. Mr. Gil denies any injury such as tongue or cheek biting during this episode. However, he does state that he lost continence of his bowels. He remembers all events that took place after his son shaking him. He was taken to a local hospital and admitted overnight for observation. He Dr. Dow notes, he had basic labs, troponin and CK x3, all of which were normal. He was discharged home the next day. denies any drug or alcohol use around the time of this spell. Mr. Gil has had no further spells since that time. He denies any spells prior to this. As far as seizure risk factors are concerns, Mr. Gil denies seizures as a child or any family history ofseizures. He denies meningitis/encephalitis, though he does state that he has had several traumatic head injuries with loss of consciousness many years ago. Mr. Gil has had no symptoms leading up to this spell. Notably he denied palpitations, chest pain, vertigo, or shortness of breath. He does state that approximately one year ago, he began having orthostasis when arising out of his bed quickly from a prone position in the morning. This first occurred approximately one year ago, andhe noted when he sat up, he passed out. Since then, he manages to turn himself on his stomach and back out of bed, which has stopped this problem. If he does sit upquickly, he still occasionally gets lightheaded. He also notes that occasionally when he hyperextends his neck, as in looking up, he will sometimes get lightheaded. REVIEW OF SYSTEMS Mr. Gil denies any fever, chills, night sweats, or weight changes. He denies palpitations, shortness of breath, dyspnea on exertion, chest pain, nausea,vomiting, or diarrhea. He denies rashes, bleeding, or bruising. He has had no weakness, numbness, headaches, or vision changes. He has no history of diabetes or thyroid disorders. He has no history of anxiety or depression. PAST MEDICAL HISTORY Significant for hypertension. Per Dr. Elise, a history of alcoholism. However, he apparently had been abstinent for several years. Mr. Gil does relate today that approximately six months ago, he decided to have several drinks of whiskey and became acutely confused, delusional, and combative and needed to be taken to the local hospital. Per Armaan Mikeysofia, his blood pressure was extremely high and once that was treated, he returned to normal. He denies any other past medical history. MEDICATIONS Atenolol 50 mg daily. ALLERGIES PENICILLIN. FAMLY HISTORY There is a history of stroke in his mother in her older age. There is no other history of neurological disorders or seizures. SOCIAL HISTORY Mr. Gil is currently retired. 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 He states that he completed a masters degree in business administration in the 1969 He currently hasthree grown children and lives alone in [place], [place]. He is a former cigarette smoker, but cu rrently smokes 2-3 cigars a day. He has a history of alcoholism, though denies any current alcohol use at all. He does smoke approximately 3-4 bowls of marijuana a day. He denies any other recreational or illicit drug use. PHYSICAL EXAMINATION Blood pressure was initially 130/80, pulse was 68 and regular, and respirations were 20 and unlabored. His height was 66 inches and his weight was 218 lb. Orthostatic blood pressures were checked today, and his blood pressure prone was 118/75, sitting 110/72, and standing 120/75. In general, he wasin no acute distress. His heart was regular and his lungs were clear to auscultation. His abdomen was obese, but otherwise benign. His extremities were warm and well perfused without edema. On neurological examination, he was alert and oriented. He was able to recall three objects at fiveminutes. On language testing, his fluency, naming, repetition, and comprehension were intact. Calculation was also intact. His pupils were symmetrically reactive. Motor examination of the face revealed ptosis of the left eye, which was confirmed with his driverlicense today. He also had slight nasolabial fold flattening on the right, but his activation and strength was otherwise full in his face.Sensation was intact throughout the face. His extraocular movements were full without nystagmus. His palate elevated symmetrically and his tongue protruded midline. Sternocleidomastoid and trapezius were 5/5. Motor examination revealed a mild high frequency, low amplitude posterior tremor that was not apparent at rest. His tone was otherwise normal. His strength throughout was 5/5. He had no cortical drift. [id number] and rapid alternating movements were intact in the upper and lower extremities. Reflexes were symmetric throughout. was intact throughout to light touch. Romberg was absent.His casual gait was within normal limits and he was able to ambulate on his toes, heels, and in tandem without difficulty. STUDIES 1. His head CT with and without contrast performed at [facility] was reviewed today. This showed no focal areas of abnormality, notably no evidence of ischemia, tumor, or other pathology. There was no noted atrophy. 2. His EEG, which was performed after his initial clinic visit, was also preliminarily reviewed, and this was a normal study. IMPRESSION Mr. Gil is a 66-year-old right-handed gentleman with a history of hypertension and remote alcohol use, who presents today with one history of an atypical spell. His head imaging and EEG were normal and his exam is essentially nonfocal. There is no evidence to support a diagnosis of epilepsy andwhile it is unclear exactly what the spells was, it is unlikely to have been a primary seizure. It is possible that this was a cardiac event. However, this is also unclear at this time. Regardless, we are confident that Mr. Gil does not have a diagnosis of epilepsy nor does he seem to be at risk for developing this. There is no further workup or treatment that his recommended at this time. Mr. Gil was counseled about this and was advised to return should any new questions or concerns arise. Signed by Prashant Jefferson MD 02/09/2007 09:19 Reviewed by Jovani Reed MD 01/13/2007 09:22 Krystal Reed, Naomy Greer, MDCertified in Neurology, Clinical Neurophysiology, and Sleep Medicine Dictated by: Jovani Reed MD Coleman Jefferson MD Certified in Neurology, Clinical Neurophysiology, and Sleep Medicine D: - Jovani Reed MD A - lbr Job ID: [id number] Document ID: [id number] cc: Giorgi Morales MD documented in this encounter
--- OUTSIDE RECORDS SUMMARY | 2024-06-06 19:14 | XMS_ITS | Encounter Summary ---
Author Organization [facility] Address [address] [place] [address] Care Team Providers Care Service Worker Helper Name Role Phone John Cee MD Primary Care Provider Unav ailable Encounter Details Date Type Department Care Team (Latest Contact Info) Description 06/12/2015 10:52 EDT - 06/12/2015 16:19 EDT Hospital Encounter [facility] Perioperative Services- [facility] [place] [address] [place] [address] Eduardo Nicholson MD [address] [place] [phone] Macular pucker, left eye (Primary Dx) Discharge Disposition: Home or Self Care Social [...] Blood Pressure 140/73 06/12/2015 1600 EDT Pulse - - Temperature 36.2 ??C (97.2 ??F) 06/12/2015 1600 EDT Respiratory Rate 17 06/12/2015 1600 EDT Oxygen Saturation 95% 06/12/2015 1600 EDT Inhaled Oxygen Concentration - - Weight 81.6 kg (180 lb) 06/07/2015 0939 EDT Height 171.5 cm (5' 7.5) 06/07/2015 0939 EDT Body Mass Index 27.78 06/07/2015 0939 EDT documented in this encounter Functional Status Cognitive Status Response Date of Assessm ent Because of a physical, menta l, or emotional condition, do you have serious difficulty concentrating, remembering, or making decisions? (5 years old or older) Yes 02/11/2012 documented as of this encounter Discharge Instructions * Discharge Instructions* Eduardo Nicholson - 06/12/2015 15:38 EDT Leave your eye patch and shield - if any were placed by your surgeon - in place. For pain, you may use Tylenol (acetominophen) and/or Advil (ibuprofen) or other similar non-prescription, [id number] medications in doses as noted on manufacturers' labels. Do not exceed daily dosing limits for any of the active ingredients. Be careful to check other medications you may be taking by mouth for other conditions that may coincidentally contain one or more of these active ingredients. For example, if you have a chronic pain condition - say, arthritis - and are on pills regularly for that, check to see if those pills contain acetominophen as one of their active ingredients before using additional acetominophen for eye pain after today's surgery. For pain not controlledwith this approach and/or for concerns and/or questions about use of these medications, call [facility] at [phone]. For showering, avoid directing your face into the stream of the shower head. Do not worry about a small amount of water and/or soap that gets into your eye patch and/or eye during shampooing, face washing, etc. Do not lift anything heavier than a light bag of groceries and, until notified by your surgeon, do not exercise. Follow-up tomorrow at [facility], [address] [place] [address], 2nd floor, [place], any time between 10 AM and 2 PM. (That location is up the block from [employer] at the corner of [facility], [facility] [address]] and [facility], and across the street from [employer] and from [employer].) Atthat appointment, your surgeon and the [facility] staff will review post-operative instructions that will apply moving forward after tomorrow's visit; the instructions you are holding and reading right now apply to today, tonight, and tomorrow morning prior to your appointment. Tomorrow, you will learn about eye drop use after patch removal, further activity and/or exercise restrictions, any ongoing positioning needs, etc. It is very strongly recommended that you have another adult with you at that appointment and in the examination room to help you keep track of all of this andto help you figure out what questions you might have. documented in this encounter Medications at Time of Discharge Medication Sig Dispensed Refills Start Date End Date atenolol (TENORMIN) 25 mg tablet Take 25 mg by mouth daily. VIT C/VIT E/LUTEIN/MIN/OMEGA-3 (OCUVITE ORAL) Take by mouth daily documented as of this encounter Discharge Disposition Disposition Code Departure Means Destination Home or Self Care documented in this encounter Progress Notes * Nell Genao RN - 06/07/2015 0938 EDT Jimmy Gil has been instructed as follows regarding medication administration for the day of the scheduled procedure. Date of Surgery: 06/12/15 Instructions for Taking Medications Day of Surgery Medication Sig Last Dose Hold DOS Take DOS atenolol (TENORMIN) 25 mg tablet Take 25 mg by mouth daily. Yes VIT C/VIT E/LUTEIN/MIN/OMEGA-3 (OCUVITE ORAL) Take by mouth daily 06/07/15 documented in this encounter H&P Notes * Eduardo Nicholson - 06/12/2015 1420 EDT The preoperative history and physical which was performed within 30 days of this procedure has been reviewed and the clinically appropriate elements of the physical examination have been repeated. There are no changes to the documented history and physical or if so such changes are documented below Eduardo Nicholson 06/12/2015 14:20 Source Note - CLASSICS TEACHER, JEIMY 2 - 06/11/2015 11:45 EDT documented in this encounter OR Notes * OR Surgeon - Eduardo Nicholson - 06/13/2015 1457 EDT OPERATIVE REPORT SERVICE DATE: 06/12/2015 PREOPERATIVE DIAGNOSIS: Macular pucker, left eye. POSTOPERATIVE DIAGNOSIS: Macular pucker, left eye. PROCEDURE: Three-port 25-gauge pars plana vitrectomy with membrane peeling, left eye. SURGEON: Eduardo Nicholson MD NURSING HOME MANAGER: KIRSTEN Francisco ANESTHESIA: Monitored anesthesia care with local (5 mL of 1% plain lidocaine mixed with 5 mL of 0.5% plain bupivacaine for 5 mL retrobulbar and 1 mL modified van Lint blocks). INTRAVENOUS FLUIDS: Per the anesthesia record. URINE OUTPUT: None. ESTIMATED BLOOD LOSS: None. COMPLICATIONS: None. NARRATIVE: The patient was correctly identified as Jimmy Gil in the preoperative holding area and brought to the operating room where local anesthesia was given on the left side in the standard fashion following light IV sedation. The patient was prepped and draped in the usual sterile fashion for vitreoretinal surgery on the left side. A wire lid speculum was placed between the lids of the left eye. Then 25-gauge cannulae were placed in each of the superonasal, superotemporal and inferotemporal quadrants employing placement trocars, with simultaneous mobilization of underlying conjunctivae, and at points marked to be 4 mm posterior to the corneoscleral limbus. The infusion line was connected to the inferotemporal cannula. Its tip was verified to be in the intravitreal cavity by transpupillary illumination, so the infusion line was turned on. With the corneal contact lens in place and the endoilluminator probe and vitrectomy cutter handpiece in place through the superior cannulae, a complete automated 3-port pars plana vitrectomy was commenced. There was a preexisting vitreous separation present. A bent-tipped MVR blade was employed to engage and gently strip from the macular surface a premacular membrane. Binocular indirect ophthalmoscopy with external transscleral depression did not reveal ongoing intraocular hemorrhage nor rhegmatogenous retinal pathology. The cannulae were removed with simultaneous mobilization of underlying conjunctivae. Finger tensionon the globe was approximately 20 and the wounds were watertight. Subconjunctival antibiotic and steroid injections were administered. The speculum was removed. A drop of atropine ophthalmic solution and a ribbon of TobraDex ophthalmic ointment were placed on the eye. The eye was patched and shielded. The patient left the operating room in stable condition. Unless otherwise noted, there were no complications, no blood loss, no cultures obtained, no specimens removed, and no drains retained. Eduardo Nicholson MD 08 41 AM / Eduardo Nicholson MD en Confirmation: [id number] Dictation ID: [id number] cc:John Beard OD * OR Surgeon - Eduardo Nicholson - 06/12/2015 1536 EDT Brief Op Note Pre-op Diagnosis(es): macular pucker left eye Post-op Diagnosis(es): same Procedure(s): 25-gauge, 3-port pars plana vitrectomy with membrane peeling left eye Surgeon: [facility] Dentist: Lorie Anesthesia: MAC/local IV Fluid: per Anesthesia Urine output: none Complication(s): none Specimen(s): none Misc: n/a documented in this encounter Miscellaneous Notes * Anesthesia Post-David Lange DO - 06/12/2015 1546 EDT Post Anesthesia Evaluation Note Date of Service: 06/12/2015 Jimmy Gil, a 75 y.o. year old male has received MAC today. He has been evaluated, assessed and discharged from anesthesia care with stable cardiorespiratory function and alert mental status. The last set of recorded vital signs and pain rating were reviewed: BP: (!) 153/79 mmHg (06/12/15 1540), SpO2: 95 % (06/12/15 1540),Numeric Pain Level (Scale 1-10): 0 Jimmy Gil participated in this evaluation unless otherwise noted. His pain, nausea and vomiting have been managed and his body temperature and fluid balance have been restored. Additional monitoring and assessment needs have been addressed. If present, any postoperative events are documented below. David Sutton DO 06/12/2015 15:46 documented in this encounter Plan of Treatment Not on file documented as of this encounter Procedures Procedure Name Priority Date/Time Associated Diagnosis Comments ECG REPORT - SCANNED 06/15/2015 9:22 EDT ECG REPORT - SCANNED 06/11/2015 11:45 EDT documented in this encounter Results * ECG REPORT - SCANNED (06/15/2015 9:22 EDT) 06/15/2015 9:22 EDT Scan 2 Cut Off Saw Grader PROCEDURE/MINOR BOBBY GICAL ORDERABLES * ECG REPORT - SCANNED (06/11/2015 11:45 EDT) 06/11/2015 11:4 5 EDT Scan 2 Cut Off Saw Grader PROCEDURE/MINOR BOBBY GICAL ORDERABLES documented in this encounter Visit Diagnoses Diagnosis Macular pucker, left eye- Primary Macular puckering of retina Macular pucker, left eye Macular puckering of retina documented in this encounter Administered Medications Inactive Administered Medications - up to 3 most recent administrations Medication Order MAR Action Action Date Dose Rate Site cyclopentolate (CYCLOGYL) 1 % ophthalmic solution 1 Drop 1 Drop, left eye, PRE-OP Q 5 MINUTES, 3 doses, Starting on Thu06/12/15 at 1308, Until Thu06/12/15 at 1415, Other, vitreoretinal surgery, Routine, Pre-Op DOS Rx Approved Given 06/12/2015 14:15 EDT 1 Drop Given 06/12/2015 14:10 EDT 1 Drop Given 06/12/2015 14:04 EDT 1 Drop lactated ringers (LR) infusion 30 mL/hr, intravenous, CONTINUOUS, Starting on Thu06/12/15 at 1330, Until Thu06/12/15 at 1824, Routine, Pre-Op DOS Rx Approved New Bag 06/12/2015 13:16 EDT 30 mL/hr 30 mL/hr ofloxacin (OCUFLOX) 0.3 % ophthalmic solution 1 Drop 1 Drop, left eye, PRE-OP Q 5 MINUTES, 3 doses, Starting on Thu06/12/15 at 1308, Until Thu06/12/15 at 1415, vitreoretinal surgery, Routine, Pre-Op DOS Rx Approved Given 06/12/2015 14:15 EDT 1 Drop Given 06/12/2015 14:10 EDT 1 Drop Given 06/12/2015 14:04 EDT 1 Drop phenylephrine (MYDFRIN) 2.5 % ophthalmic solution 1 Drop 1 Drop, left eye, PRE-OP Q 5 MINUTES, 3 doses, Starting on Thu06/12/15 at 1308, Until Thu06/12/15 at 1415, Irritation, vitreoretinal surgery, Routine, Pre-Op DOS Rx Approved Given 06/12/2015 14:15 EDT 1 Yaya p Given 06/12/2015 14:10 EDT 1 Drop Given 06/12/2015 14:04 EDT 1 Drop tropicamide (MYDRIACYL) 1 % ophthalmic solution 1 Drop 1 Drop, left eye, PRE-OP Q 5 MINUTES, 3 doses, Starting on Thu06/12/15 at 1308, Until Thu06/12/15 at 1415, vitreoretinal surgery, Routine, Pre-Op DOS Rx Approved Given 06/12/2015 14:15 EDT 1 Drop Given 06/12/2015 14:10 EDT 1 Drop Given 06/12/2015 14:04 EDT 1 Drop documented in this encounter Discontinued Medications Medication Sig Discontinue Reason Start Date End Da te azithromycin (ZITHROMAX) 250 mg tablet Take 250 mg by mouth daily. Therapy completed 06/07/2015 docusate sodium (COLACE) 100 mg capsule Take 2 Caps by mouth 2 times daily. Therapy completed 02/12/2012 06/07/2015 oxycodone-acetaminophen (PERCOCET) 5-325 mg per tablet Take 1-2 Tabs by mouth every 4 hours as needed for Pain. Therapy completed 02/12/2012 06/07/2015 documented as of this encounter Historical Medications * This list may reflect changes made after this encounter. Medication Sig Dispensed Refills Start Date End Date VIT C/VIT E/LUTEIN/MIN/OMEGA-3 (OCUVITE ORAL) Take by mouth daily added in this encounter Active and Recently Administered Medications Times are shown in EDT. Continuous Medication Order 06/10/2015 06/11/2015 06/12/2015 lactated ringers (LR) infusion (CANCELED) 30 mL/hr, intravenous, CONTINUOUS, Starting on Thu06/12/15 at 1330, Until Thu06/12/15 at 1824, Routine, Pre-Op DOS Rx Approved 1316 (New Bag - Prov ider: Katey Perkins RN)1540 (Completed - Provider: Marika Barber RN) PRN Medication Order 06/10/2015 06/11/2015 06/12/2015 cyclopentolate (CYCLOGYL) 1 % ophthalmic solution 1 Drop (COMPLETED) 1 Drop, left eye, PRE-OP Q 5 MINUTES, 3 doses, Starting on Thu06/12/15 at 1308, Until Thu06/12/15 at 1415, Other, vitreoretinal surgery, Routine, Pre-Op DOS Rx Approved 1404 (Given - Provid er: Trish Karimi RN)1410 (Given - Provider: Trish Karimi RN)1415 (Given - Provider: Trish Karimi RN) ofloxacin (OCUFLOX) 0.3 % ophthalmic solution 1 Drop (COMPLETED) 1 Drop, left eye, PRE-OP Q 5 MINUTES, 3 doses, Starting on Thu06/12/15 at 1308, Until Thu06/12/15 at 1415, vitreoretinal surgery, Routine, Pre-Op DOS Rx Approved 1404 (Given - Provid er: Trish Karimi RN)1410 (Given - Provider: Trish Karimi RN)1415 (Given - Provider: Trish Karimi RN) phenylephrine (MYDFRIN) 2.5 % ophthalmic solution 1 Drop (COMPLETED) 1 Drop, left eye, PRE-OP Q 5 MINUTES, 3 doses, Starting on Thu06/12/15 at 1308, Until Thu06/12/15 at 1415, Irritation, vitreoretinal surgery, Routine, Pre-Op DOS Rx Approved 1404 (Given - Provid er: Trish Karimi RN)1410 (Given - Provider: Trish Karimi RN)1415 (Given - Provider: Trish Karimi RN) tropicamide (MYDRIACYL) 1 % ophthalmic solution 1 Drop (COMPLETED) 1 Drop, left eye, PRE-OP Q 5 MINUTES, 3 doses, Starting on Thu06/12/15 at 1308, Until Thu06/12/15 at 1415, vitreoretinal surgery, Routine, Pre-Op DOS Rx Approved 1404 (Given - Provid er: Trish Karimi, RN)1410 (Given - Provider: Trish Karimi, RN)1415 (Given - Provider: Trish Karimi, DVAID) documented in this encounter Orders Medications Ordered That Connor ht Not Have Been Administered Count Last Ordered Date First Ordered Date acetaminophen (TYLENOL) tablet 325 mg 1 atropine 0.1 mg/mL syringe 0.5 mg 1 015 diphenhydrAMINE (BENADRYL) i njection 6.25 mg 1 06/12/2015 fentaNYL citrate (PF) 50 mcg /mL injection 25-100 mcg 1 06/12/2015 ibuprofen (MOTRIN) tablet 600 mg 1 06/12/20 15 lactated ringers (LR) infusion 1 06/12/2015 metoCLOPramide (REGLAN) injection 10 mg 1 1 nalOXone (NARCAN) injection 0.2 mg 1 2014 ondansetron (PF) (ZOFRAN) injection 2 mg 1 06/12/2015 Nursing Count Last Ordered Date First Orde red Date PLACE SEQUENTIAL COMPRESSION DEVICE 1 06/12 Admission Count Last Ordered Date First Orde red Date STATUS: OUTPATIENT SURGICAL OP BED/SERVICES 1 06/12/2015 Transfer Count Last Ordered Date First Orde red Date NOTIFY PPS PACU PATIENT DISCHARGE 1 015 NOTIFY PPS PATIENT ARRIVAL IN PACU 1 2014 Discharge Count Last Ordered Date First Orde red Date DISCHARGE PATIENT 1 06/12/2015 documented in this encounter Care Teams Service Worker Helper Relationship Specialty Start Date End Date John Cee MD PCP - General 06/07/15 documented as of this encounter
--- OUTSIDE RECORDS SUMMARY | 2024-06-06 19:14 | XMS_ITS | Encounter Summary ---
Author Organization [facility] Address [address] [place] [address] Care Team Providers Care Sap Crm Developer Name Role Phone Unavailable Primary Care Provider Unavailabl e Encounter Details Date Type Department Care Team (Late Contact Info) Description 01/11/2007 Before PRISM Converted Visit (Maple) [facility] - Maple conversion [address] [place] [address] Prashant Jefferson MD [address] [facility]. [address] [place] [id number] Social History Tobacco Use Types Packs/Day Years Used Date Smoking Tobacco: Never Assessed Sex and Gender Information Value Date Recorded Sex Assigned at Not on file Gender Identity Not on file Sexual Orientation Not on file documented as of this encounter Progress Notes * Prashant Jefferson MD - 07/03/2009 1216 EST January 11, 2007 Giorgi Morales MD [facility] [address], [address] [place] [address] Morales, Thank you for the opportunity to provide neurologic consultation on Mr. Gil who suffered a syncopal event possibly with a seizure in late November 2006. I have benefit of your recent evaluation. He is seen today with our chief resident of neurology, Dr. Reed, and please refer to details of our findings in that letter. I feel near certain that Mr. Gil suffered a syncopal seizure. He apparentlyhad one other syncopal episode after attempting to sit up too quickly in the morning about two years ago and he relays that he continues to have to roll over on his tummy and proceed to a sitting position carefully in the morning upon getting up. He hasno epilepsy risk factors although he may have had a remote head injury with a loss of consciousness of a duration that was unspecified. examination today as well as EEG were normal and I did have an opportunity to review the actual images from his CT scan of his headwith and without contrast obtained November 10, 2006 and it is normal. He does have a history of alcoholism apparently with a recent break through binge although this particular episode was not associated with alcohol per Mr. Hubbard today. He did not have changes of orthostasis on his examination today. We discussed our impressions with Mr. Gil today. We did not consider starting an antiseizure drug and I do not believe further neurologic investigation is necessary. It would be reasonable to consider obtaining thyroid studies and possibly an echocardiogram if not already obtained. I hope this consultation was helpful and if you have further questions about this nice man please do not hesitate to contact me directly. Most Sincerely, Signed by Prashant Jefferson MD 01/27/2007 13:43 Tai Jefferson MDCertified in Neurology, Clinical Neurophysiology, and Sleep MedicinePrashant Jefferson MDBoard Certified in Neurology, Clinical Neurophysiology, and Sleep Medicine Prashant Jefferson MD Board Certified in Neurology, Clinical Neurophysiology, and Sleep Medicine D: - Prashant Jefferson MD A - stephanie Job ID: [id number] Document ID: [id number] cc: MD Jovani Castillo MD documented in this encounter Plan of Treatment Not on file documented as of this encounter Visit Diagnoses Not on filedocumented in this encounter
--- OUTSIDE RECORDS SUMMARY | 2024-06-06 19:14 | XMS_ITS | Encounter Summary ---
Author Organization [facility] Address [address] [place] [address] Care Team Providers Care Comber Setter Name Role Phone John Cee MD Primary Care Provider Unav ailable Reason for Visit * Reason Comments Eye Problem F/U ~ 14 D: IOP both eyes, Va both eyes same, no pain, no flashes, no floaters, Medication Management dorz-champ BID Left eye, brim BID left eye, latan QHS left eye, acetazol 500 PO QAM; Encounter Details Date Type Department Care Team (Late st Contact Info) Description 08/11/2017 10:15 EST Office Visit [facility] Ophthalmology - [address] [address] Eduardo Ha MD [address] [place] [address], [address] [place] [address] Discharge Disposition: Auto Discharge Social [...] cataract, right eye-H25.11[ICD-10-CM] documented in this encounter Ordered Prescriptions Prescription Sig Dispensed Refills Start Date End Da te acetaZOLAMIDE (DIAMOX SEQUELS) 500 mg capsule Take 1 Cap by mouth 2 times daily. 60 Cap 1 08/11/2017 09/11/2017 documented in this encounter Discharge Disposition Disposition Code Departure Means Destination Auto Discharge documented in this encounter Progress Notes * Eduardo Ha MD - 08/11/2017 1015 EST Chief Complaint Patient presents with ??? Eye Problem F/U ~ 14 D: IOP both eyes, Va both eyes same, no pain, no flashes, no floaters, ??? Medication Management dorz-champ BID Left eye, brim BID left eye, latan QHS left eye, acetazol 500 PO QAM; HPI :The patient is a 77 y.o. male -- describes recent vision loss L eye, R eye remains stable Denies pain, notes redness and discharge, also left eye No recent trauma, no prior episode of these complaints Takes no eye medicines until new rx given by Lyn the other day Right Eye: Blurred Vision Left Eye: Blurred Vision, Redness Visual Aid: Glasses Current Rx Age > 2 years Location: Left eye Pain: 0 - No pain Quality: Blurry Severity: Moderate Duration: Weeks Timing: Constant Lasts: Weeks Context: F/U ~ 14 D: IOP both eyes, Va both eyes same, no pain, no flashes, no floaters, Modifying factors: dorz-champ BID Left eye, brim BID left eye, latan QHS left eye, acetazol 500 PO QAM; Associated Signs & Symptoms: No new floaters or flashes. No pain. Attestation: ROS Constitutional: NL ENT/Mouth Cardiovascular: High Blood Pressure Respiratory: NL Gastrointestinal: NL Genitourinary: NL Musculoskeletal: NL Integumentary: NL Neurologic: NL Psychiatric: NL Endocrine: NL Hematologic: NL Immunologic: Drug Allergy Department Secretary: Exposures: None Other: Attestation: Allergies include: Penicillins Patient Active Problem List Diagnosis ??? Fall ??? Fracture of cervical vertebra ([facility]) ??? Fracture of left clavicle ??? Macular pucker, left eye Outpatient Prescriptions Marked as Taking for the 08/11/17 encounter (Office Visit) with Eduardo Ha MD Medication Sig ??? acetaZOLAMIDE (DIAMOX SR) 500 mg capsule Take 1 Cap by mouth 2 times daily. (Patient taking differently: Take 500 mg by mouth daily. ) ??? atenolol (TENORMIN) 25 mg tablet Take 25 mg by mouth daily. ??? brimonidine (ALPHAGAN) 0.15 % ophthalmic solution Place 1 Drop into the left eye 2 times daily. ??? DORZOLAMIDE HCL/TIMOLOL MALEAT (DORZOLAMIDE-TIMOLOL OPHTHALMIC) Place 1 Drop into the left eye 2 times daily. ??? latanoprost (XALATAN) 0.005 % ophthalmic solution Place 1 Drop into the left eye at bedtime. ??? lisinopril (PRINIVIL, ZESTRIL) 5 mg tablet Take 5 mg by mouth daily. ??? VIT C/VIT E/LUTEIN/MIN/OMEGA-3 (OCUVITE ORAL) Take by mouth daily Past Medical History: Diagnosis Date ??? Cataract ??? Hypertension ??? Seizure ([facility]) November 2006 grand mal seizure, witnessed [...] - Linear) Right Left Dist cc 20/30 +2 CF at 2' Dist ph cc NI 20/800 Tonometry (Applanation, 10:17) Right Left Pressure 15 32 Gonioscopy OS: Open to SS or TM, many low PAS, ? small NVI temporally Pupils Dark Light React APD Right 4 3 Brisk None Left 4 3 RAPD Extraocular Movement Right Left Result Full Full [...] Normal Normal Fundus Exam Right Left Disc small NVA C/D Ratio ~0.5 ~0.5 Macula flat, mod drusen flat, moderate drusen Vessels Normal attenuated IMPRESSION & PLAN: 1. Neovascular glaucoma of left eye, indeterminate stage -- presented to [facility] in neovascular angle closure 07/14/17 -- s/p Avastin and PRP (Lyn), pt notes improved VA but not back to baseline -- IOP today NVI / NVA resolved, angle mainly open with scattered low PAS, yet continued uncontrolled OHT despite rx -- D/W pt, primary goal is to keep eye comfortable, also hope to maintain low level of vision through reasonable but not overly aggressive steps, he agrees to this plan -- follow for now, add CPCdiode laser if IOP remains high -- plan: 1. For now, again increase acetazolamide to 500 PO BID 2. Cont other gtts as below 3. F/U Lyn as planned late 08/16 4. F/U here early Aug 2017 ON: ~0.5 / ~0.5 -- RAPD OS Tmax: XX / 39 CCT: Gonio: Open to SS-CBB / open to TM, few PAS, no NVA (08/16) VF: OCT: Surg: none Gtts: dorz-champ BID OS, brim BID OS, latan QHS OS, acetazol 500 PO QAM 2. CRVO (central retinal vein occlusion) -- [...] Start Date End Da te acetaZOLAMIDE (DIAMOX SR) 500 mg capsule Take 1 Cap by mouth 2 times daily. 07/22/2017 08/11/2017 documented as of this encounter Eye Exam Visual Acuity (Snellen - Linear) Right eye Left eye Dist cc 20/30 +2 CF at 2' Dist ph cc NI 20/800 Tonometry (Applanation, 10:17) Right eye Left eye Pressure 15 32 Gonioscopy OS: Open to SS or TM, many low PAS, ? small NVI temporally Pupils Dark Light React APD Right eye 4 3 Brisk None Left eye 4 3 RAPD Extraocular Movement Right eye Left eye Full [...] Fundus Exam Right eye Left eye Disc small NVA C/D Ratio ~0.5 ~0.5 Macula flat, mod drusen flat, moderate drusen Vessels Normal attenuated Care Teams Comber Setter Relationship Specialty Start Date End Date John Cee MD PCP - General 06/07/15 documented as of this encounter
--- OUTSIDE RECORDS SUMMARY | 2024-06-06 19:14 | XMS_ITS | Encounter Summary ---
Author Organization [facility] Address [address] [place] [address] Care Team Providers Care Senior Systems Developer Name Role Phone John Cee MD Primary Care Provider Unav ailable Reason for Visit * Reason Comments Eye Problem F/U ~5 D for NVG,VA both eyes same, no pain, no flashes, no floaters Medication Management Add acetazolamide 500 mg PO BID (NO PROBLEMS OR CHANGES) , ocuflox -/4, G cosopt -/3, Brim -/3, latanoprost -/hs Encounter Details Date Type Department Care Team (Late st Contact Info) Description 07/22/2017 9:00 EST Office Visit [facility] Ophthalmology - [address] [address] Eduardo Ha MD [address] [facility], [address] [place] [address] Discharge Disposition: Auto Discharge Social [...] oth eye disord, l eye, indeterminate stage-H40.52X4[ICD-10-CM] documented in this encounter Ordered Prescriptions Prescription Sig Dispensed Refills Start Date End Da te acetaZOLAMIDE (DIAMOX SR) 500 mg capsule Take 1 Cap by mouth 2 times daily. 30 Cap 1 07/22/2017 08/11/2017 documented in this encounter Discharge Disposition Disposition Code Departure Means Destination Auto Discharge documented in this encounter Progress Notes * Eduardo Ha MD - 07/22/2017 0900 EST Chief Complaint Patient presents with ??? Eye Problem F/U ~5 D for NVG,VA both eyes same, no pain, no flashes, no floaters ??? Medication Management Add acetazolamide 500 mg PO BID (NO PROBLEMS OR CHANGES) , ocuflox -/4, G cosopt -/3, Brim -/3, latanoprost -/hs HPI :The patient is a 77 y.o. [...] Duration: Weeks Timing: Constant Lasts: Weeks Context: Pt. is here per. Dr. Lyn SYLVESTER as a new pt. with H/O CRVO, Dry ARMD, CME, and NVG with massive complex new developement left eye per Dr. Nicholson. Pt. states VA challenging, very poor left eye. no eye pain, no new f/f. Pt. decribes that over the coarse of a week VA decreased dramatically left eye starting about a week ago. Modifying factors: Add acetazolamide 500 mg PO BID (NO PROBLEMS OR CHANGES) , ocuflox -/4, G cosopt-/3, Brim -/3, latanoprost -/hs Associated Signs & Symptoms: Blurry vision left eye suddent decrease past week Attestation: ROS Constitutional: NL ENT/Mouth Cardiovascular: High Blood Pressure Respiratory: NL Gastrointestinal: NL Genitourinary: NL Musculoskeletal: NL Integumentary: NL Neurologic: NL Psychiatric: NL Endocrine: NL Hematologic: NL Immunologic: Drug Allergy Mid Wife: Exposures: None Other: Attestation: Allergies include: Penicillins Patient Active Problem List Diagnosis ??? Fall ??? Fracture of cervical vertebra ([facility]) ??? Fracture of left clavicle ??? Macular pucker, left eye Outpatient Prescriptions Marked as Taking for the 07/22/17 encounter (Office Visit) with Eduardo Ha MD Medication Sig ??? acetaZOLAMIDE (DIAMOX SEQUELS) 500 mg capsule Take 1 Cap by mouth 2 times daily. ??? atenolol (TENORMIN) 25 mg tablet Take 25 mg by mouth daily. ??? brimonidine (ALPHAGAN) 0.15 % ophthalmic solution Place 1 Drop into the left eye 3 times daily. ??? DORZOLAMIDE HCL/TIMOLOL MALEAT (DORZOLAMIDE-TIMOLOL OPHTHALMIC) Place 1 Drop into the left eye 3 times daily. ??? latanoprost (XALATAN) 0.005 % ophthalmic solution Place 1 Drop into the left eye at bedtime. ??? lisinopril (PRINIVIL, ZESTRIL) 5 mg tablet Take 5 mg by mouth daily. ??? ofloxacin (OCUFLOX) 0.3 % ophthalmic solution Place 1 Drop into the left eye 4 times daily. ??? VIT C/VIT E/LUTEIN/MIN/OMEGA-3 (OCUVITE ORAL) Take by mouth daily Past Medical History: Diagnosis Date ??? Cataract ??? Hypertension ??? Seizure ([facility]) November 2006 grand mal seizure, witnessed by [...] (Snellen - Linear) Right Left Dist cc 20/40 +1 CF at 1' Dist ph cc NI NI Tonometry (Applanation, 9:21) Right Left Pressure 12 32 Gonioscopy Left: Open to SS, Scattered PAS, No NV Pupils Pupils Dark Light React APD Right PERRL 3 2 Brisk None Left PERRL 3 2 Sluggish + APD Left eye Per DJD Assessment Extraocular Movement Right Left Result Full Full Neuro/Psych Oriented x3: Yes Mood/Affect: Normal Slit Lamp and Fundus Exam External Exam Right Left External Normal Normal Slit Lamp Exam Right Left Lids/Lashes 1+ Blepharitis, punctal ectropion 1+ Blepharitis, punctal ectropion Conjunctiva/Sclera White and quiet trace -1+ injection Cornea Clear mild edema Anterior Chamber Deep and quiet Deep, quiet Iris Round and reactive Round and reactive, No NV Lens 1-2+ NS PCIOL Vitreous no view Fundus Exam Right Left C/D Ratio ~0.5 approx 0.5 Macula mod drusen no view Vessels Normal ? NVD IMPRESSION & PLAN: 1. Neovascular glaucoma of left eye, indeterminate stage -- presented to [facility] in neovascular angle closure 07/14/17 -- s/p Avastin (Lyn), last visit added acetazolamide PO and IOP slight better, pt comfortable -- IOP today -- no NVI/NVA today, clearly an improvement since initialDJD visit and good view into TM with only a few PAS -- believe angle may resume functioning, and given poor visual prognosis and pt's current comfort, will defer KNITTING MACHINE FIXER HEAD diode for now -- pt to see Lyn 5 D for likely PRP -- stop oflox, otherwise cont rx as below, F/U here ~ 1 W: IOP OU, possible KNITTING MACHINE FIXER HEAD diode ON: ~0.5 / ~0.5 -- RAPD OS Tmax: XX 39 CCT: Gonio: Open to SS-CBB / open to TM, few PAS, no NVA (07/17) VF: OCT: Surg: none Gtts: oflox QID OS, dorz-champ TID OS, brim TID OS, latan QHS OS, acetazol 500 PO [...] 1 Cap by mouth 2 times daily. 07/17/2017 07/22/2017 documented as of this encounter Eye Exam Visual Acuity (Snellen - Linear) Right eye Left eye Dist cc 20/40 +1 CF at 1' Dist ph cc NI NI Tonometry (Applanation, 9:21) Right eye Left eye Pressure 12 32 Gonioscopy Left: Open to SS, Scattered PAS, No NV Pupils Pupils Dark Light React APD Right eye PERRL 3 2 Brisk None Left eye PERRL 3 2 Sluggish + APD Left eye Per DJD Assessment Extraocular Movement Right eye Left eye Full Full Neuro/Psych Oriented x3: Yes Mood/Affect: Normal External Exam Right eye Left eye External Normal Normal Slit Lamp Exam Right eye Left eye Lids/Lashes 1+ Blepharitis, punctal ectropio n 1+ Blepharitis, punctal ectropion Conjunctiva/Sclera White and quiet trace -1+ inj ection Cornea Clear mild edema Anterior Chamber Deep and quiet Deep, quiet Iris Round and reactive Round and dewayne ctive, No NV Lens 1-2+ NS PCIOL Vitreous no view Fundus Exam Right eye Left eye C/D Ratio ~0.5 approx 0.5 Macula mod drusen no view Vessels Normal ? NVD Care Teams Senior Systems Developer Relationship Specialty Start Date End Date John Cee MD PCP - General 06/07/15 documented as of this encounter
--- OUTSIDE RECORDS SUMMARY | 2024-06-06 19:14 | XMS_ITS | Encounter Summary ---
Author Organization [facility] Address [address] [place] [address] Care Team Providers Care Install Technician Name Role Phone John Cee MD Primary Care Provider Unav ailable Reason for Visit * Reason Comments Eye Exam 1 W: IOP OU, possibl e WINDER FIXER diode. s/p laser surgery (07/27/2017 Dr Nicholson) left eye. Vision may have improved left eye; right eye is OK. No new floaters or flashes. No pain. Medication Management dorz-champ TID OS, b rim TID OS, latan QHS OS (patient is taking this in morning), acetazol 500 PO BID; Stopped ofloxacin Encounter Details Date Type Department Care Team (Late st Contact Info) Description 07/30/2017 10:30 EST Office Visit [facility] Ophthalmology - [address] [address] Eduardo Ha MD [address] [place] [address], [address] [place] [address] Discharge Disposition: Auto Discharge Social [...] Progress Notes * Eduardo Ha MD - 07/30/2017 1030 EST Chief Complaint Patient presents with ??? Eye Exam 1 W: IOP OU, possible WINDER FIXER diode. s/p laser surgery (07/27/2017 Dr Nicholson) left eye. Vision may have improved left eye; right eye is OK. No new floaters or flashes. No pain. ??? Medication Management dorz-champ TID OS, brim TID OS, latan QHS OS (patient is taking this in morning), acetazol 500 PO BID; Stopped ofloxacin HPI :The patient is a 77 y.o. [...] > 2 years Location: Left eye Pain: Quality: Blurry Severity: Moderate Duration: Weeks Timing: Constant Lasts: Weeks Context: 1 W: IOP OU, possible WINDER FIXER diode. s/p laser surgery (07/27/2017 Dr Nicholson). Vision may have improved left eye; right eye is OK. Modifying factors: nothing Associated Signs & Symptoms: No new floaters or flashes. No pain. Attestation: ROS Constitutional: NL ENT/Mouth Cardiovascular: High Blood Pressure Respiratory: NL Gastrointestinal: NL Genitourinary: NL Musculoskeletal: NL Integumentary: NL Neurologic: NL Psychiatric: NL Endocrine: NL Hematologic: NL Immunologic: Drug Allergy Telecommunications Administrator: Exposures: None Other: Attestation: Allergies include: Penicillins Patient Active Problem List Diagnosis ??? Fall ??? Fracture of cervical vertebra ([facility]) ??? Fracture of left clavicle ??? Macular pucker, left eye Outpatient Prescriptions Marked as Taking for the 07/30/17 encounter (Office Visit) with Eduardo Ha MD [...] Date ??? Cataract ??? Hypertension ??? Seizure ([facility] November 2006 grand mal seizure, witnessed by [...] - Linear) Right Left Dist cc 20/40 -2 CF at 6' Dist ph cc 20/25-2 Correction: Glasses Tonometry (Applanation, 11:29) Right Left Pressure 14 21 Gonioscopy OS: few scattered PAS otherwise open to TM / SS, no NVA Neuro/Psych Oriented x3: Yes Mood/Affect: Normal Slit Lamp and Fundus Exam External Exam Right Left External Normal Normal Slit Lamp Exam Right Left Lids/Lashes 1+ Blepharitis, punctal ectropion 1+ Blepharitis, punctal ectropion Conjunctiva/Sclera White and quiet trace injection Cornea Clear Clear Anterior Chamber Deep and quiet Deep, rare cell Iris Round and reactive Round and reactive, no NVI Lens 1-2+ NS PCIOL Vitreous poor view Fundus Exam Right Left C/D Ratio ~0.5 ~ 0.5 Macula mod drusen poor view Vessels Normal scattered NVD IMPRESSION & PLAN: 1. Neovascular glaucoma of left eye, indeterminate stage -- presented to [facility] in neovascular angle closure 07/14/17 -- s/p Avastin and PRP (Lyn), pt notes improved VA but not back to baseline IOP today NVI / NVA has resolved, still some NVD -- angle mainly open, few PAS -- plan: 1. Reduce acetazolamide to 500 PO QAM 2. Reduce dorz-champ and brim to BID only, cont latan QHS 3. F/U ~ 14 D: IOP OU ON: ~0.5 / ~0.5 -- RAPD OS Tmax: XX / 39 CCT: Gonio: Open to SS-CBB / open to TM, few PAS, no NVA (07/17) VF: OCT: Surg: none Gtts: dorz-champ TID OS, brim TID OS, latan [...] Discontinue Reason Start Date End Da te ofloxacin (OCUFLOX) 0.3 % ophthalmic solution Place 1 Drop into the left eye 4 times daily. 07/30/2017 documented as of this encounter Eye Exam Visual Acuity (Snellen - Linear) Right eye Left eye Dist cc 20/40 -2 CF at 6' Dist ph cc 20/25-2 Correction: Glasses Tonometry (Applanation, 11:29) Right eye Left eye Pressure 14 21 Gonioscopy OS: few scattered PAS otherwise open to TM / SS, no NVA Neuro/Psych Oriented x3: Yes Mood/Affect: Normal External Exam Right eye Left eye External Normal Normal Slit Lamp Exam Right eye Left eye Lids/Lashes 1+ Blepharitis, punctal ectropio n 1+ Blepharitis, punctal ectropion Conjunctiva/Sclera White and quiet trace injecti on Cornea Clear Clear Anterior Chamber Deep and quiet Deep, rare cell Iris Round and reactive Round and dewayne ctive, no NVI Lens 1-2+ NS PCIOL Vitreous poor view Fundus Exam Right eye Left eye C/D Ratio ~0.5 ~ 0.5 Macula mod drusen poor view Vessels Normal scattered NVD Care Teams Install Technician Relationship Specialty Start Date End Date John Cee MD PCP - General 06/07/15 documented as of this encounter
--- OUTSIDE RECORDS SUMMARY | 2024-06-06 19:14 | XMS_ITS | Encounter Summary ---
Author Organization [facility] Address [address] [place] [address] Care Team Providers Care Auto Crane Driver Name Role Phone Unavailable Primary Care Provider Unavailabl e Encounter Details Date Type Department Care Team (Late st Contact Info) Description 01/11/2007 13:26 EDT Hospital Encounter [facility] [address] [place] [address] Giorgi Morales MD [address] [place], [place] [address] Discharge Disposition: Auto Discharge Social History Tobacco Use Types Packs/Day Years Used Date Smoking Tobacco: Never Assessed Sex and Gender Information Value Date Recorded Sex Assigned at Not on file Gender Identity Not on file Sexual Orientation Not on file documented as of this encounter Discharge Disposition Disposition Code Departure Means Destination Auto Discharge documented in this encounter Plan of Treatment Not on file documented as of this encounter Visit Diagnoses Not on filedocumented in this encounter
--- OUTSIDE RECORDS SUMMARY | 2024-06-06 19:14 | XMS_ITS | Encounter Summary ---
Author Organization [facility] Address [address] [place] [address] Care Team Providers Care Bit Gatherer Name Role Phone John Cee MD Primary Care Provider Unav ailable Reason for Visit * Reason Onset Date Comments Medications Refill 08/26/2017 Encounter Details Date Type Department Care Team (Late st Contact Info) Description 08/26/2017 Refill [facility] Ophthalmology - [address] [place] [address] Eduardo Ha MD [address] [facility], [facility] [address] [place] [phone] Medications Refill Social History Tobacco Use Types [...] Dispensed Refills Start Date End Da te dorzolamide-timolol (COSOPT) 22.3-6.8 mg/mL ophthalmic solution Place 1 Drop into the left eye 2 times daily. 1 Bottle 11 08/26/2017 11/24/2017 latanoprost (XALATAN) 0.005 % ophthalmic solution Place 1 Drop into the left eye at bedtime. 1 Bottle 11 08/26/2017 10/06/2017 brimonidine (ALPHAGAN) 0.15 % ophthalmic solution Place 1 Drop into the left eye 2 times daily. 1 Bottle 11 08/26/2017 08/27/2017 documented in this encounter Miscellaneous Notes * Telephone Encounter - Denice Chahal - 08/26/2017 [id number] EST Doctor: Eduardo Ha MD Requested Medication(s): see below Last appointment date: 08/11/2017 Last appointment note regarding medication:08/11/17 Neovascular glaucoma of left eye, indeterminate stage -- presented to [facility] in neovascular angle closure 07/14/17 -- s/p Avastin and PRP (Lyn), pt notes improved VA but not back to baseline-- IOP today 15 / 32 ?? NVI / NVA resolved, angle mainly open with scattered low PAS, yet continued uncontrolled OHT despite rx -- D/W pt, primary goal is to keep eye comfortable, also hope to maintain low level of vision through reasonable but not overly aggressive steps, he agrees to this plan -- follow for now, add CPCdiode laser if IOP remains high -- plan: ?? 1. For now, again increase acetazolamide to 500 PO BID 2. Cont other gtts as below 3. F/U Lyn as planned late 08/16 4. F/U here early Aug 2017 ?? ON: ~0.5 / ~0.5 -- RAPD OS Tmax: XX / 39 CCT: Gonio: Open to SS-CBB / open to TM, few PAS, no NVA (08/16) VF: OCT: Surg: none Gtts: dorz-champ BID OS, brim BID OS, latan QHS OS, acetazol 500 PO QAM Next appointment date: 09/11/2017 * Telephone Encounter - Renetta Malone - 08/26/2017 [id number] EST Medication Refill Medication(s) Requested: brimonidine (ALPHAGAN) 0.15 % ophthalmic solution, latanoprost (XALATAN) 0.005 % ophthalmic solution and DORZOLAMIDE HCL/TIMOLOL MALEAT (DORZOLAMIDE-TIMOLOL OPHTHALMIC Pharmacy (reconcile pharmacy list): [facility] in [place], [place] Is patient out of medication? Yes Picking up/mailing (location)/calling in/eprescribe? eprescribe Patient was told to call the pharmacy before heading to warehouse picker the eyedrops. Renetta Malone 08/26/20178:51 documented in this encounter Plan of Treatment Not on file documented as of this encounter Visit Diagnoses Not on filedocumented in this encounter Discontinued Medications Medication Sig Discontinue Reason Start Date End Da te brimonidine (ALPHAGAN) 0.15 % ophthalmic solution Place 1 Drop into the left eye 2 times daily. Reorder 08/26/2017 latanoprost (XALATAN) 0.005 % ophthalmic solution Place 1 Drop into the left eye at bedtime. Reorder 08/26/2017 DORZOLAMIDE HCL/TIMOLOL MALEAT (DORZOLAMIDE-TIMOLOL OPHTHALMIC) Place 1 Drop into the left eye 2 times daily. Reorder 08/26/2017 documented as of this encounter Care Teams Bit Gatherer Relationship Specialty Start Date End Date John Cee MD PCP - General 06/07/15 documented as of this encounter
--- OUTSIDE RECORDS SUMMARY | 2024-06-06 19:14 | XMS_ITS | Encounter Summary ---
Author Organization [facility] Address [address] [place] [address] Care Team Providers Care Welt Maker Name Role Phone Unavailable Primary Care Provider Unavailabl e Encounter Details Date Type Department Care Team (Late st Contact Info) Description 01/11/2007 Before PRISM Converted Visit (Maple) [facility] - Maple conversion [address] [place] [address] Ernesto Meng MD PhD [address] [place] [address]. [facility] [address] [place] [address] Social History Tobacco Use Types Packs/Day Years Used Date Smoking Tobacco: Never Assessed Sex and Gender Information Value Date Recorded Sex Assigned at Not on file Gender Identity Not on file Sexual Orientation Not on file documented as of this encounter Procedure Notes * Ernesto Meng MD - 07/03/2009 1216 EST CLINICAL NEUROPHYSIOLOGY LABORATORY ELECTROENCEPHALOGRAM REPORT SERVICE DATE: 01/11/2007 STUDY NUMBER: EEG #[id number] REFERRING PROVIDER: Giorgi Morales MD, Prashant Jefferson MD CLINICAL HISTORY A 66-year-old patient with an hour long episode of shaking and loss of consciousness, slurred speech and exhaustion two weeks prior to the electroencephalogram. MEDICATIONS Atenolol. TECHNICAL DESCRIPTION The International 10-20 system of electrode placement and a CPZ reference electrode. The study is performed under the supervision of a registered EEG Technologists. No pain assessment for this procedure is necessary. A minimum of 31minutes is recorded. Anterior temporal leads are utilized to enhance coverage in those areas. FINDINGS 1. When the eyes are open background activity is low in voltage. With eye closure a 9 to 10 Hz posterior dominant rhythm is seen at 40 uV. 2. Photic stimulation: intermittent photic stimulation at flash frequencies from 1 to 60 flashes per second results in no abnormalities. 3. Hyperventilation: 3 minutes of hyperventilation results in no change in the electroencephalogram. 4. Sleep: The patient achieves stage I sleep during a fairly prolonged nap study and arousal was unremarkable. IMPRESSION This is a normal electroencephalogram. Signed by Ernesto Meng MD,PHD 01/13/2007 11:54 Darin Meng MD,PHDABPN Certified in NeurologyFrench Board Clinical NeurophysiologyErnesto Meng MD,PHD Ernesto Meng MD,PHD ABPN Certified in Neurology French Board Clinical Neurophysiology - Ernesto Meng MD,PHD A - stephanie Job ID: [id number] Document ID: [id number] cc: Giorgi Morales MD documented in this encounter Plan of Treatment Not on file documented as of this encounter Visit Diagnoses Not on filedocumented in this encounter
--- OUTSIDE RECORDS SUMMARY | 2024-06-06 19:14 | XMS_ITS | Encounter Summary ---
Author Organization [facility] Address [address] [place] [address] Care Team Providers Care Field Crop Farming Supervisor Name Role Phone John Cee MD Primary Care Provider Unav ailable Reason for Visit * Reason Comments Glaucoma Pt. is here per. Dr. Lyn SYLVESTER as a new pt. with H/O CRVO, Dry ARMD, CME, and NVG with massive complex new developement left eye per Dr. Nicholson. Pt. states VA challenging, very poor left eye. no eye pain, no new f/f. Pt. decribes that over the coarse of a week VA decreased dramatically left eye starting about a week ago. H/O cataract surgery left eye 6 months ago and vitrectomy 1.5 years ago left eye. Medication Management ocuflox -/4, G cos opt -/3, Brim -/3, latanoprost -/1 Encounter Details Date Type Department Care Team (Late st Contact Info) Description 07/17/2017 9:45 EST Office Visit [facility] Ophthalmology - [address] [phone] Eduardo Ha MD [address] [facility], [address] [place] [address] Discharge Disposition: Auto Discharge Social [...] stable-H34.8192[ICD-10-CM] H25.11 Age-related nuclear cataract, right eye-H25.11[ICD-10-CM] Z96.1 Presence of intraocular lens-Z96.1[ICD-10-CM] documented in this encounter Ordered Prescriptions Prescription Sig Dispensed Refills Start Date End Da te acetaZOLAMIDE (DIAMOX SEQUELS) 500 mg capsule Take 1 Cap by mouth 2 times daily. 16 Cap 07/17/2017 07/22/2017 documented in this encounter Discharge Disposition Disposition Code Departure Means Destination Auto Discharge documented in this encounter Progress Notes * Eduardo Ha MD - 07/17/2017 0945 EST Chief Complaint Patient presents with ??? Glaucoma Pt. is here per. Dr. Lyn SYLVESTER as a new pt. with H/O CRVO, Dry ARMD, CME, and NVG with massive complex new developement left eye per Dr. Nicholson. Pt. states VA challenging, very poor left eye. no eye pain, no new f/f. Pt. decribes that over the coarse of a week VA decreased dramatically left eye starting about a week ago. H/O cataract surgery left eye 6 months ago and vitrectomy 1.5 years ago left eye. ??? Medication Management ocuflox -/4, G cosopt -/3, Brim -/3, latanoprost -/1 HPI :The patient is a 77 y.o. [...] starting about a week ago. Modifying factors: ocuflox -/4, G cosopt -/3, Brim -/3, latanoprost -/1 Associated Signs & Symptoms: Blurry vision left eye suddent decrease past week Attestation: ROS Constitutional: NL ENT/Mouth Cardiovascular: High Blood Pressure Respiratory: NL Gastrointestinal: NL Genitourinary: NL Musculoskeletal: NL Integumentary: NL Neurologic: NL Psychiatric: NL Endocrine: NL Hematologic: NL Immunologic: Drug Allergy Software Test Specialist: Exposures: None Other: Attestation: Allergies include: Penicillins Patient Active Problem List Diagnosis ??? Fall ??? Fracture of cervical vertebra (HCC) ??? Fracture of left clavicle ??? Macular pucker, left eye Outpatient Prescriptions Marked as Taking for the 07/17/17 encounter (Office Visit) with Eduardo Ha MD Medication Sig ??? brimonidine (ALPHAGAN) 0.15 % ophthalmic solution [...] Date ??? Cataract ??? Hypertension ??? Seizure (HCC) November 2006 grand mal seizure, witnessed by [...] - Linear) Right Left Dist cc 20/30 -1 HM Dist ph cc NI NI Near cc J1 -3 Fix and follow Correction: Glasses Tonometry (Applanation, 10:01) Right Left Pressure 12 39 Pachymetry (07/17/2017) Right Left Thickness 561 596 Gonioscopy Right: open to CB Left: poor view, large areas PAS and NVA, some TM visible sup & inf Pupils Dark React APD Right 4 Minimal None Left 4 Minimal ? Visual Landaverde Right Left Result Full Restrictions Partial inferior temporal, superior nasal, inferior nasal deficiencies Extraocular Movement Right Left Result Full Full Neuro/Psych Oriented x3: Yes Mood/Affect: Normal Additional Tests Amsler Right Left Amsler Normal unable to test Color Right Left Ishihara 8/8 unable to test Slit Lamp and Fundus Exam External Exam Right Left External Normal Normal Slit Lamp Exam Right Left Lids/Lashes 1+ Blepharitis, punctal ectropion 1+ Blepharitis, punctal ectropion Conjunctiva/Sclera White and quiet diffuse 2+ injection Cornea Arcus senilis diffuse mod edema Anterior Chamber Deep and quiet Deep Iris Round and reactive Round and reactive Lens 1-2+ NS PCIOL Vitreous no view Fundus Exam Right Left Macula no view IMPRESSION & PLAN: 1. Neovascular glaucoma of left eye, indeterminate stage -- neovascular angle closure x days per pthx, discussed by phone with Williams Nicholson and Lauri, reviewed letter -- D/W pt, very poor prognosisfor visual recovery, even to recent baseline of approx 20/200 - 20/400 -- recommend AC tap and begin acetazolamide PO, done today in clinic, see note below -- if no response could add micropulse BLENDING MACHINE FEEDER diode as short-term control, otherwise would need tube shunt Good IOP after tap and acetazolamide -- plan: 1. Add acetazolamide 500 mg PO BID 2. Cont dorz-champ OS BID, brim OS TID, latan OS QHS, oflox OS QID 3. F/U ~5 D, call sooner for worsening problems ON: ~0.5 / XX Tmax: XX 39 CCT: Gonio: Open to SS-CBB / near 360* NVA closure (07/17) VF: OCT: Surg: none Gtts: oflox QID OS, dorz-champ TID OS, brim TID OS, latanoprost QHS OS 2. CRVO (central retinal vein occlusion) -- [...] is performing the service. Eduardo Ha MD Anterior Chamber Paracentesis Date: 07/17/17 Eye: Left Indication: Ocular hypertension Surgeon: Eduardo aH MD House Worker: Yahir Greco Complication: None Jimmy Gil consented to anterior chamber paracentesis to the operative eye (indicated above) for purpose of lowering eye pressure. Risks, benefits and alternatives were discussed with the patient, and informed consent was obtained. Tetracaine was applied to the eye, followed by two rounds of Betadyne and Vigamox. A lid speculum was used to hold the eyelids. A 15 degree blade was used to make a paracentesis in the inferotemporalcornea, just inside the limbus. A small amount of fluid was released through the paracentesis, and the IOP was measured, as noted above. There was no bleeding or iris prolapse, and the wound did not leak afterwards. Two rounds of Vigamox were again applied to the eye. documented in this encounter Plan of Treatment Not on file documented as of this encounter Visit Diagnoses Diagnosis Neovascular glaucoma of left eye, indeterminate stage- Primary CRVO (central retinal vein occlusion) Central vein occlusion of retina Nuclear sclerosis of right eye Pseudophakia of left eye Lens replaced by other means documented in this encounter Historical Medications * This list may reflect changes made after this encounter. Medication Sig Dispensed Refills Start Date End Date lisinopril (PRINIVIL, ZESTRIL) 5 mg tablet Take 5 mg by mouth daily. latanoprost (XALATAN) 0.005 % ophthalmic solution Place 1 Drop into the left eye at bedtime. 08/26/2017 brimonidine (ALPHAGAN) 0.15 % ophthalmic solution Place 1 Drop into the left eye 2 times daily. 08/26/2017 DORZOLAMIDE HCL/TIMOLOL MALEAT (DORZOLAMIDE-TIMOLOL OPHTHALMIC) Place 1 Drop into the left eye 2 times daily. 08/26/2017 ofloxacin (OCUFLOX) 0.3 % ophthalmic solution Place 1 Drop into the left eye 4 times daily. 07/30/2017 added in this encounter Eye Exam Visual Acuity (Snellen - Linear) Right eye Left eye Dist cc 20/30 -1 HM Dist ph cc NI NI Near cc J1 -3 Fix and follow Correction: Glasses Tonometry #1 (Applanation, 10:01) Right eye Left eye Pressure 12 39 Tonometry #2 (Applanation, 11:52) Right eye Left eye Pressure ~12 Tonometry #3 (Applanation, 13:18) Right eye Left eye Pressure ~21 Tonometry Comments T2 s/p AC tap Pachymetry (07/17/2017) Right eye Left eye Thickness 561 596 Gonioscopy Right: open to CB Left: poor view, large areas PAS and NVA, some TM visible sup & inf Pupils Dark React APD Right eye 4 Minimal None Left eye 4 Minimal ? Visual Landaverde Right eye Left eye Full Restrictions Partial outer in ferior temporal, superior nasal, inferior nasal deficiencies Extraocular Movement Right eye Left eye Full Full Neuro/Psych Oriented x3: Yes Mood/Affect: Normal Amsler Right eye Left eye Normal unable to test Color Right eye Left eye Ishihara 04/07 unable to test External Exam Right eye Left eye External Normal Normal Slit Lamp Exam Right eye Left eye Lids/Lashes 1+ Blepharitis, punctal ectropio n 1+ Blepharitis, punctal ectropion Conjunctiva/Sclera White and quiet diffuse 2+ in jection Cornea Clear diffuse mod sirisha a Anterior Chamber Deep and quiet Deep Iris Round and reactive Round and dewayne ctive Lens 1-2+ NS PCIOL Vitreous no view Fundus Exam Right eye Left eye C/D Ratio ~0.5 Macula mod drusen no view Vessels Normal Care Teams Field Crop Farming Supervisor Relationship Specialty Start Date End Date John Cee MD PCP - General 06/07/15 documented as of this encounter
--- OUTSIDE RECORDS SUMMARY | 2024-06-06 19:14 | XMS_ITS | Encounter Summary ---
Author Organization [facility] Address [address] [place] [address] Care Team Providers Care Sales Program Coordinator Name Role Phone John Cee MD Primary Care Provider Unav ailable Reason for Visit * Reason Onset Date Comments Medications Refill 08/27/2017 Encounter Details Date Type Department Care Team (Late st Contact Info) Description 08/27/2017 Refill [facility] Ophthalmology - [address] [address] Eduardo Ha MD [address] [place] [address], [address] [place] [phone] Medications Refill Social History Tobacco Use Types [...] left eye 2 times daily. 10 mL 4 08/27/2017 11/24/2017 documented in this encounter Miscellaneous Notes * Telephone Encounter - Gudelia Ortiz - 08/27/2017 0935 EST 9:35 am [facility] sent prior authorization request for Brimonidine 0.15%, Dr. Ha said okay to switch to Brimonidine 0.2% Doctor: Eduardo Ha MD Requested Medication(s): Brimonidine 0.2% Last appointment date: 08/11/2017 Last appointment note regarding medication:Gtts: dorz-champ BID OS, brim BID OS, latan QHS OS, acetazol 500 PO QAM' Next appointment date: 08/2017 documented in this encounter Plan of Treatment Not on file documented as of this encounter Visit Diagnoses Not on filedocumented in this encounter Discontinued Medications Medication Sig Discontinue Reason Start Date End Da te brimonidine (ALPHAGAN) 0.15 % ophthalmic solution Place 1 Drop into the left eye 2 times daily. 08/26/2017 08/27/2017 documented as of this encounter Care Teams Sales Program Coordinator Relationship Specialty Start Date End Date John Cee MD PCP - General 06/07/15 documented as of this encounter
[2024-06-06 20:26] LABS: Anion Gap 11.4 mmol/L (3-11); BUN 13 mg/dL (7-18); CO2 28.6 mmol/L (21.0-32.0); CREATININE 0.9 mg/dL (0.70-1.30); Calcium 8.8 mg/dL (8.5-10.1); Chloride 106 mmol/L (98-107); Estimated GFR 84.74 (mL/min/1.73m2); Glucose 93 mg/dL (74-106); Potassium 4.1 mmol/L (3.5-5.1); Sodium 146 mmol/L (136-145); Vitamin D 25 Total 18.7 ng/mL (30-100)
== END 2024-06-06 19:11 | disposition home or self-care (01) ==
LOC: NCHCN 19:10
PROVIDERS: PCP Internal Medicine; Visit Provider Internal Medicine
DX: E46 Unspecified protein-calorie malnutrition (principal)
CPT/HCPCS: 80048; 82306; 85025

== ENCOUNTER 2024-09-05 16:08 | Outpatient (REF) | payer MEDICARE, SELFPAY ==
--- OUTSIDE RECORDS SUMMARY | 2024-09-05 16:10 | XMS_ITS | Encounter Summary ---
Author Organization [facility] Address [facility] [place] [address] Care Team Providers Care Engine House Helper Name Role Phone Unavailable Primary Care Provider Unavailabl e Encounter Details Date Type Department Care Team (Late st Contact Info) Description 04/29/2024 Interpretation Only [facility] in [facility] [address] [place] [phone] July Otero MD [address] [place] [address] Social History Tobacco Use Types Packs/Day Years Used Date Smoking Tobacco: Never Assessed Sex and Gender Information Value Date Recorded Sex Assigned at Not on file Gender Identity Not on file Sexual Orientation Not on file documented as of this encounter Plan of Treatment Not on file documented as of this encounter Procedures Procedure Name Priority Date/Time Associated Diagnosis Comments CT HEAD WO CONTRAST (GENERIC) Routine 04/29/2024 1:33 PM EDT documented in this encounter Results * CT Head wo Contrast (Generic) (04/29/2024 1:33 PM EDT) PT CLASS O RAD ADMITDTTM [id number] RAD PT RAD INFO [id number]^PABLO Y^JULY^R RAD EXAM DESC CTHEAD^CT HEAD WO CONTRAST^RIS RAD WORKSTATION ID [id number] RAD Anatomical Region Laterality Modality Head Computed Tomogra phy Impressions 04/29/2024 2:16 PM EDT Involutional changes, not meaningfully changed since the prior 12/27/2019. No acute hemorrhage or mass effect. Low-grade right maxillary sinus disease, also not meaningfully changed since prior. Thank you for letting us participate in the care of this patient. ??If you are a health care provider and have any questions regarding this report, please contact the number below. ??For patients who have questions please contact the health manager intensive care unit that requested your imaging first. ? Narrative 04/29/2024 2:16 PM EDT EXAMINATION: CT HEAD WO CONTRAST CLINICAL HISTORY: ??Reason for Head: ??HALLUCINATIONS ??Add'l Info: TECHNIQUE: CT head performed without intravenous [...] and middle ears are aerated. Skull intact. Procedure Note Rashad Cox MD - 04/29/2024 EXAMINATION: CT HEAD WO CONTRAST CLINICAL HISTORY: Reason for Head: HALLUCINATIONS Add'l Info: TECHNIQUE: CT head performed without intravenous contrast administration. COMPARISON: 12/27/2019 FINDINGS: CSF spaces appear mildly increased in keeping with a generalizedatrophy, marginally more than expected for age. Mild hypodensity of the hemisphericwhite matter occurs, likely chronic ischemic. No acute hemorrhage or mass effect. No recent or remote betzaida corticalinfarct. Mucoperiosteal thickening and a small amount of retained secretions occursat the right maxillary sinus. Mastoids and middle ears are aerated. Skull intact. IMPRESSION Involutional changes, not meaningfully changed since the prior 12/27/2019.No acute hemorrhage or mass effect. Low-grade right maxillary sinus disease, also not meaningfully changedsince prior. Thank you for letting us participate in the care of this patient. If youare a health care provider and have any questions regarding this report,please contact the number below. For patients who have questions please contactthe health manager intensive care unit that requested your imaging first. July Otero MD IMG CT ORDERABLES documented in this encounter Visit Diagnoses Not on filedocumented in this encounter
--- OUTSIDE RECORDS SUMMARY | 2024-09-05 16:10 | XMS_ITS | Encounter Summary ---
Author Organization [facility] Address [address] [place] [address] Care Team Providers Care Underwriting Clerks Supervisor Name Role Phone John Cee MD Primary Care Provider Unav ailable Encounter Details Date Type Department Care Team (Late st Contact Info) Description 02/20/2020 Lab Requisition [facility] Pathology & Laboratory Medicine - [address] [address] Outr Resulting Lab, Provider Social History Tobacco Use Types Packs/Day Years Used Date Smoking Tobacco: Former Cigarettes 0 02/28/1991 - 02/28/2011 Smokeless Tobacco: Never Alcohol Use Standard Drinks/Week Comments No 0 (1 standard drink = 0.6 oz pur e alcohol) Sex and Gender Information Value Date Recorded Sex Assigned at Not on file Legal Sex Male 18:40 EST Gender Identity Not on file Sexual Orientation Not on file documented as of this encounter Mental Status * Because of a physical, mental, or emotional condition, do you have serious difficulty concentrating, remembering, or making decisions? (5 years old or older) Answer Entry Date Author Yes 02/11/2012 21:02 EDT Dennis Mckeon RN documented in this encounter Plan of Treatment Not on file documented as of this encounter Procedures Procedure Name Priority Date/Time Associated Diagnosis Comments VITAMIN B12 Routine 02/20/2020 12:23 EDT documented in this encounter Results * VITAMIN B12 (02/20/2020 12:23 EDT) Vitamin B12 703 211 - 911 pg/mL 02/21/2020 9:22 EDT [facility] Blood VENOUS BLOOD / Unknown 02/20/2020 12:23 EDT 02/20/2020 22:13 EDT us Provider Outr Resulting Lab CHEMISTRY & BLOOD GA S ORDERABLES Final Result [facility] [address] [place] [address] documented in this encounter Visit Diagnoses Not on filedocumented in this encounter Care Teams Underwriting Clerks Supervisor Relationship Specialty Start Date End Date John Cee MD PCP - General 06/07/15 documented as of this encounter
--- OUTSIDE RECORDS SUMMARY | 2024-09-05 16:10 | XMS_ITS ---
Author Organization Unknown Address [address] [place] [phone] Phone Care Team Providers Care Wrapper Cashier Name Role Phone SOPHIE Candelaria Attending Unavailable Results CT HEAD WO CONTRAST - Comple jeri: 04/29/2024 13:33 LOINC: [facility] RADIOLOGY [place], [place] [address] RADIOLOGY GENERAL PRACTITIONER REPORT Patient Name: CATERINA LEDEZMA MRN: Sex: : Age: [id number] M [id number] Account: Accession: Admit: StayType: [id number] 04/29/2024 O Ordered: Order ID: Submitted: Ordering Provider: 04/29/2024 13:06 [id number] EVERETT YOUNG Completed: Technologist: Resulted: 04/29/2024 13:13 LAWRENCE 04/29/2024 [...] who have questions please contact the health special needs caregiver that requested your imaging first. Social History Type Status Start Date End Date Code Code Syst em Smoking History Current some day smoker [id number] SNOMED CT Sex Male Medications Medication Start Date End Date Route Frequency Dose Code Code System Medication Instructions Home Meds levETIRAcetam 250MG Oral Tablet 02/03/2019 Unknown ORAL TWICE A DAY 500 MILLIGRAMS 503339 RxNorm TAKE 500 MILLIGRAMS ORAL TWICE A DAY Lisinopril 5MG Oral Tablet 02/03/2019 Unknown ORAL DAILY 5 MILLIGRAMS 822159 RxNorm TAKE 5 MILLIGRAMS ORAL DAILY OCUVITE [...] Date Status Code Code System SEIZURE active 54797059 SNOMED-CT ASPIRATION PNEUMONIA active 552097160 SNOMED-CT Allergies and Adverse Reactions Allergy Substance Reaction Severity Start Date Concern Status Code Code System PENICILLINS (CLASS) Hives (SNOMED-CT: 356895811), UNKNOWN (SNOMED-CT: null) Moderate Active 1890611 SNOMED-CT Plan of Treatment CT HEAD W/O CONTRAST 04/29/2024 Encounters Encounter Diagnosis Start Date Code Code Sys tem Acute maxillary sinusitis 04/29/2024 07120203 SN OMED-CT Personal Care Team Section Performer Name Performer Role Active Date Inactive Da te
--- OUTSIDE RECORDS SUMMARY | 2024-09-05 16:10 | XMS_ITS | Clinical Summary ---
Author Organization [facility] Address [address] [place] [address] Care Team Providers Care Fork Lift Technician Name Role Phone John Cee MD Primary Care Provider Unav ailable Allergies Active Allergy Reactions Criticality Noted Date Comments Penicillins Hives 02/11/2012 Medications atenolol (TENORMIN) 25 mg tablet Take 25 mg by mouth daily. Active VIT C/VIT E/LUTEIN/MIN/OME GA-3 (OCUVITE ORAL) Take by mouth daily Active lisinopril (PRINIVIL, ZESTRIL) 5 mg tablet Take 5 mg by mouth daily. Active latanoprost (XALATAN) 0.005 % ophthalmic solution Place 1 Drop into the left eye at bedtime. 12.5 mL 3 07/18/2019 Active Active Problems Problem Noted Date Diagnosed Date Macular pucker, left eye 06/12/2015 Fall 02/11/2012 Overview (02/11/2012): From bed Fracture of cervical vertebra ([facility]) 02/11/20 12 Overview (03/05/2012): C1 vidal fx (2 part, lateral displacement of left lateral mass) Fracture of left clavicle 02/11/2012 Surgical History Surgery Date Site/Laterality Comments HEMORRHOID SURGERY 1980s CATARACT REMOVAL INTRAOCULAR LENS PROSTHESIS INSERTION Lef t Medical History Medical History Date Comments Hypertension Seizure ([facility]) November 2006 grand mal seiz ure, [...] Body Mass Index 27.78 06/07/2015 0939 EDT Plan of Treatment Health Maintenance Due Date Last Done Comments Fall Risk Screening 2006 RSV Immunization ( o r 60+ Years) (1 - 1-dose 75+ series) 2016 COVID-19 Vaccine ( season) 2024 [place] [id number] Advance Directives For more information, please contact: [phone] * Full Code (Latest Code Status on File) Date Activated Date Inactivated Comments 06/12/2015 13:08 06/12/2015 18:24 Question Answer Comments Reason for decision includes: Full code consistent with overall plan of care Who participated in the discussion? Not Discusse d * Full Code Date Activated Date Inactivated Comments 02/11/2012 15:58 02/17/2012 12:02 Care Teams Fork Lift Technician Relationship Specialty Start Date End Date John Cee MD PCP - General 06/07/15
--- OUTSIDE RECORDS SUMMARY | 2024-09-05 16:10 | XMS_ITS | Encounter Summary ---
Author Organization [facility] Address [address] [place] [address] Care Team Providers Care Psychologist Military Personnel Name Role Phone John Cee MD Primary Care Provider Unav ailable Reason for Visit * Reason Onset Date Comments Other 01/27/2019 Encounter Details Date Type Department Care Team (Late st Contact Info) Description 01/27/2019 Telephone [place] [phone] [place] [address] Eduardo Ha MD [address] [place] [address], [facility] [address] [place] [address] Other Social History Tobacco Use [...] Dennis Mckeon RN documented in this encounter Miscellaneous Notes * [...] on filedocumented in this encounter Care Teams Psychologist Military Personnel Relationship Specialty Start Date End Date John Cee MD PCP - General 06/07/15 documented as of this encounter
--- OUTSIDE RECORDS SUMMARY | 2024-09-05 16:10 | XMS_ITS | Referral Summary ---
Author Organization [facility] Address [address] [place] [address] Care Team Providers Care Jawbone Puller Name Role Phone John Cee MD Primary [...] (02/11/2012): From bed Fracture of cervical vertebra ([facility]) 02/11/20 12 Overview (03/05/2012): C1 vidal fx [...] Pressure 140/73 06/12/2015 1600 EDT Pulse 58 02/15/201214 EDT Temperature 36.2 ??C (97.2 ??F) 06/12/2015 1600 EDT Respiratory Rate 17 06/12/2015 1600 EDT Oxygen Saturation 95% 06/12/2015 1600 EDT Inhaled Oxygen Concentration - - Weight 81.6 kg (180 lb) 06/07/2015938 EDT Height 171.5 cm (5' 7.5) 06/07/2015938 EDT Body Mass Index 27.78 06/07/2015938 EDT Mental Status * Because of a physical, mental, or emotional condition, do you have serious difficulty concentrating, remembering, or making decisions? (5 years old or older) Answer Entry Date Author Yes 02/11/2012 21:02 EDT Dennis Mckeon RN Plan of Treatment Not on file Insurance MEDICARE ACO [place] Advance Directives For more information, please contact: [phone] * Full Code (Latest Code Status on File) Date Activated Date Inactivated Comments 06/12/2015 13:08 06/12/2015 18:24 Question Answer Comments Reason for decision includes: Full code consistent with overall plan of care Who participated in the discussion? Not Discusse d * Full Code Date Activated Date Inactivated Comments 02/11/2012 15:58 02/17/2012 12:02 Care Teams Jawbone Puller Relationship Specialty Start Date End Date John Cee MD PCP - General 06/07/15
--- OUTSIDE RECORDS SUMMARY | 2024-09-05 16:10 | XMS_ITS | Clinical Summary ---
[place] [address] Care Team Providers Care Wood Milling Machine Operator Name Role Phone Unavailable Primary Care Provider Unavailabl e Social History Tobacco Use Types Packs/Day Years Used Date Smoking Tobacco: Never Assessed Sex and Gender Information Value Date Recorded Sex Assigned at Not on file Gender Identity Not on file Sexual Orientation Not on file Plan of Treatment Health Maintenance Due Date Last Done Comments Tetanus/Diphtheria/Pertussis Vaccines (1 - Tdap) 05/09 Pneumoccocal Vaccine: 65+ (1 of 1 - PCV) 1991 Zoster vaccine (1 of 2) 1991 Advance Directive 1996 RSV Vaccine (1 - 1-dose 75+ series) 2016 Covid-19 Vaccine (1 - 2023- season) 2024 Influenza (Flu) vaccine (1 o f 1 - Influenza standard series) 05/01/2024
--- OUTSIDE RECORDS SUMMARY | 2024-09-05 16:10 | XMS_ITS | Encounter Summary ---
Author Organization [facility] Address [address] [place] [address] Care Team Providers Care Assembled Wood Products Repairer Name Role Phone John Cee MD Primary Care Provider Unav ailable Reason for Visit * Reason Onset Date Comments Medications Refill 07/18/2019 Encounter Details Date Type Department Care Team (Late st Contact Info) Description 07/18/2019 Refill [facility] Ophthalmology - [address] [address] Eduardo Ha MD [address] [place] [address], [address] [place] [phone] Medications Refill Social History Tobacco Use Types [...] Answer Entry Date Author Yes 02/11/2012 21:02 Dennis Vila RN documented in this encounter Ordered Prescriptions Prescription Sig Dispense Quantity Refills Last Filled Start Date End Date latanoprost (XALATAN) 0.005 % ophthalmic solution Place [...] documented as of this encounter Care Teams Assembled Wood Products Repairer Relationship Specialty Start Date End Date John Cee MD PCP - General 06/07/15 documented as of this encounter
--- OUTSIDE RECORDS SUMMARY | 2024-09-05 16:11 | XMS_ITS | Encounter Summary ---
Author Organization [facility] Address [address] [place] [address] Care Team Providers Care Piano Tuner Name Role Phone John Cee MD Primary Care Provider Unav ailable Reason for Visit * Reason Onset Date Comments Medications Refill 07/14/2018 Encounter Details Date Type Department Care Team (Late st Contact Info) Description 07/14/2018 Refill [facility] Ophthalmology - [address] [address] Eduardo Ha MD [address] [place] [address], [address] [place] [phone] Medications Refill Social History Tobacco Use Types [...] Dennis Mckeon RN documented in this encounter Ordered Prescriptions [...] documented as of this encounter Care Teams Piano Tuner Relationship Specialty Start Date End Date John Cee MD PCP - General 06/07/15 documented as of this encounter
--- OUTSIDE RECORDS SUMMARY | 2024-09-05 16:11 | XMS_ITS | Encounter Summary ---
Author Organization [facility] Address [address] [place] [address] Care Team Providers Care Foundry Helper Name Role Phone John Cee MD Primary Care Provider Unav ailable Reason for Visit * Reason Onset Date Comments Medications Refill 02/19/2018 Encounter Details Date Type Department Care Team (Late st Contact Info) Description 02/19/2018 Refill [facility] Ophthalmology - [address] [address] Eduardo Ha MD [address] [place] [address], [address] [place] [phone] Medications Refill Social History Tobacco Use Types [...] Refills Last Filled Start Date End Date brimonidine (ALPHAGAN) 0.2 % ophthalmic solution Place [...] documented as of this encounter Care Teams Foundry Helper Relationship Specialty Start Date End Date John Cee MD PCP - General 06/07/15 documented as of this encounter
--- OUTSIDE RECORDS SUMMARY | 2024-09-05 16:11 | XMS_ITS | Encounter Summary ---
Author Organization [facility] Address [address] [place] [address] Care Team Providers Care Veterinary Physiologist Name Role Phone John Cee MD Primary [...] Info) Description 09/11/2017 10:15 EST Office Visit [facility] Ophthalmology - [address] [address] Eduardo Ha MD [address] [facility], [address] [place] [address] Discharge Disposition: Auto Discharge Social [...] Dennis Mckeon RN documented in this encounter Discharge Diagnoses Diagnosis H40.52X4 Glaucoma [...] Endocrine: NL Hematologic: NL Immunologic: Drug Allergy Fudger: Exposures: None Other: Attestation: Allergies include: Penicillins [...] Cataract ??? Glaucoma ??? Hypertension ??? Seizure ([facility]) November 2006 grand mal seizure, witnessed [...] Normal attenuated Refraction Wearing Rx Sphere Cylinder Willow Add Right +0.50 +1.00 008 +3.00 Left [...] goal now is comfort of eye, offered EXPLOSIVES WORKER diode or tube shunt, would lower IOP [...] Vessels Normal attenuated Wearing Rx Sphere Cylinder Willow Add Right eye +0.50 +1.00 008 +3.00 Left eye +0.50 +0.75 005 +3.00 Age: 11y Type: Bifocal Care Teams Veterinary Physiologist Relationship Specialty Start Date End Date John Cee MD PCP - General 06/07/15 documented as of this encounter
--- OUTSIDE RECORDS SUMMARY | 2024-09-05 16:11 | XMS_ITS | Encounter Summary ---
Author Organization [facility] Address [address] [place] [address] Care Team Providers Care Executive Personal Assistant Name Role Phone John Cee MD Primary Care Provider Unav ailable Reason for Visit * Reason Onset Date Comments Medications Refill 08/27/2017 Encounter Details Date Type Department Care Team (Late st Contact Info) Description 08/27/2017 Refill [facility] Ophthalmology - [address] [address] Eduardo Ha MD [address] [place] [address], [address] [place] [phone] Medications Refill Social History Tobacco Use Types [...] - 08/27/2017 0935 EST 9:35 am [facility] sent prior authorization request for Brimonidine 0.15%, Dr. Ha said okay to switch to Brimonidine 0.2% Doctor: Eduardo Ha MD Requested Medication(s): Brimonidine 0.2% Last appointment date: 08/11/2017 Last appointment note regarding medication:Gtts: dorz-chmap BID OS, brim BID OS, latan QHS [...] documented as of this encounter Care Teams Executive Personal Assistant Relationship Specialty Start Date End Date John Cee MD PCP - General 06/07/15 documented as of this encounter
--- OUTSIDE RECORDS SUMMARY | 2024-09-05 16:11 | XMS_ITS | Encounter Summary ---
Author Organization [facility] Address [address] [place] [address] Care Team Providers Care Bill Cutter Name Role Phone John Cee MD Primary Care Provider Unav ailable Reason for Visit * Reason Onset Date Comments Medications Refill 08/26/2017 Encounter Details Date Type Department Care Team (Late st Contact Info) Description 08/26/2017 Refill [facility] Ophthalmology - [id number] [place] [address] Eduardo Ha MD [address] [facility], [address] 5 [place] [address] Medications Refill Social History Tobacco [...] Refills Last Filled Start Date End Date dorzolamide-timolol (COSOPT) 22.3-6.8 mg/mL ophthalmic solution Place [...] Telephone Encounter - Denice Chahal - 08/26/2017 0994 EST Doctor: Eduardo Ha MD Requested Medication(s): see below Last appointment date: 08/11/2017 Last appointment note regarding medication:08/11/17 Neovascular glaucoma of left eye, indeterminate stage -- presented to [facility] in neovascular angle closure 07/14/17 -- s/p Avastin and PRP (Lyn), pt notes improved VA but not back to baseline-- IOP today ?? NVI / NVA resolved, angle mainly [...] appointment date: 09/11/2017 * Telephone Encounter - FaisalAlcidesRenetta H - 08/26/2017 0892 EST Medication Refill Medication(s) Requested: brimonidine (ALPHAGAN) 0.15 % ophthalmic solution, latanoprost (XALATAN) 0.005 % ophthalmic solution and DORZOLAMIDE HCL/TIMOLOL MALEAT (DORZOLAMIDE-TIMOLOL OPHTHALMIC Pharmacy (reconcile pharmacy list): [facility] in [place], [place] Is patient out of medication? Yes Picking up/mailing (location)/calling in/eprescribe? eprescribe Patient was told to call the pharmacy before heading to continuous pickling line pickler helper the eyedrops. Renetta Malone 08/26/20178:51 documented in [...] documented as of this encounter Care Teams Bill Cutter Relationship Specialty Start Date End Date John Cee MD PCP - General 06/07/15 documented as of this encounter
--- OUTSIDE RECORDS SUMMARY | 2024-09-05 16:11 | XMS_ITS | Encounter Summary ---
Author Organization [facility] Address [address] [place] [address] Care Team Providers Care Hearing Aid Mechanic Name Role Phone Unavailable Primary Care Provider Unavailabl e Encounter Details Date Type Department Care Team (Late st Contact Info) Description 01/11/2007 Before PRISM Converted Visit (Maple) [facility] - Maple conversion [address] [place] [address] [place] [address] [place] [phone] Social History Tobacco Use Types Packs/Day [...] Visit Diagnoses * Evaluation - [place], Conv Rehab Tech - 07/03/2009 1216 EST [facility] [...] Dr. Morales, apparently there was a trained first coat operator there at the time. She had noted some right hand and head trembling. She also noted that he wasdiaphoretic and his speech was slurred. He was carried out of the car and placed in the general store to lay down. Per Dr. Benedict, the first coat operator on the scene felt that the pulse [...] currently retired. 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 He states that he completed a masters degree in business administration in the 1969 He currently hasthree grown children and lives alone in [place], [place]. He is a former cigarette smoker, [...] was 5/5. He had no cortical drift. Nabfbe-le-eupf and rapid alternating movements were intact in the upper and lower extremities. Reflexes were symmetric throughout. was intact throughout to light touch. Romberg was absent.His casual gait was within normal limits and he was able to ambulate on his toes, heels, and in tandem without difficulty. STUDIES 1. His head CT with and without contrast performed at [facility] was reviewed today. This showed no focal [...] Jovani Reed MD 01/13/2007 09:22 Krystal Reed, Lucretia Reed, Naomy Jefferson, MDCertified in Neurology, Clinical Neurophysiology, and Sleep Medicine Dictated by: Jovani Reed MD Coleman Jefferson MD Certified in Neurology, Clinical Neurophysiology, and Sleep Medicine D: - Jovani Reed MD A - lbr Job ID: [id number] Document ID: [id number] cc: Giorgi Morales MD documented in this encounter
--- OUTSIDE RECORDS SUMMARY | 2024-09-05 16:11 | XMS_ITS | Encounter Summary ---
Author Organization [facility] Address [address] [place] [address] Care Team Providers Care Transmission Superintendent Name Role Phone Giorgi Morales MD Primary Care Provider [phone] Reason for Visit * Reason Comments Follow-up Encounter Details Date Type Department Care Team (Late st Contact Info) Description 03/05/2012 13:15 EDT Office Visit [facility] Spine Program - [address] [place] [address] Eric Gannon MD [address] [place], [place] [address] [place] [address] Fracture of left clavicle; Cervical [...] 03/05/2012 1330 EDT documented in this encounter Mental Status * Because of a physical, mental, or emotional condition, do you have serious difficulty concentrating, remembering, or making decisions? (5 years old or older) Answer Entry Date Author Yes 02/11/2012 21:02 EDT Dennis Mckeon RN documented in this encounter Patient Instructions * Patient Instructions* [...] documented in this encounter Consult Notes * Eirc Gannon MD - 04/19/2012 5265 EDT [facility] [address] [place] [address] CONSULTATION - 03/05/2012 PRIMARY CARE PROVIDER: John [...] this or not. Was taken to the [facility] emergency department, admitted and then discharged on 02/17/12 to [facility]. He is here for [...] 2010, he passed out while at a [employer] restaurant, only briefly, was evaluated by the commercial service technician and went home without being taken to the emergency department. OTHER MEDICAL PROBLEMS: Hypertension, history of seizures. PAST SURGICAL HISTORY: Hemorrhoid surgery in the . SOCIAL HISTORY: He retired from [employer] in 2003. Quit smoking in 2010. Uses [...] x-ray, indicating lack of any progression. Mr Louise and I in a conference today reviewed [...] the occiput to C1 to C2). Total xjus-qw-iypm time for this visit was more than 45 minutes, more than 25 minutes of which was spent in counseling, regarding this assessment, relevant treatment alternatives, and risks and benefits of each. Electronically Signed by Eric Gannon MD 04/28/2012 09:12 Eric Gannon MD - Eric Gannon MD - MFS Job ID: SM Doc ID: [id number] Ext Doc ID: [id number] cc: John Cee MD The Patient Jorge [...] may reflect changes made after this encounter. atenolol (TENORMIN) 25 mg tablet Take 25 mg by mouth daily. azithromycin (ZITHROMAX) 250 mg tablet Take 250 mg by mouth daily. 06/07/2015 added in this encounter Care Teams Transmission Superintendent Relationship Specialty Start Date End Date Giorgi Morales MD [address] [place] [address] PCP - General 02/11/12 06/06/15 documented as of this encounter
--- OUTSIDE RECORDS SUMMARY | 2024-09-05 16:11 | XMS_ITS | Encounter Summary ---
Author Organization [facility] Address [address] [place] [address] Care Team Providers Care Back Filler Operator Name Role Phone John Cee MD Primary Care Provider Unav ailable Reason for Visit * Reason Onset Date Comments Medications Refill 10/06/2017 Encounter Details Date Type Department Care Team (Late st Contact Info) Description 10/06/2017 Refill [facility] Ophthalmology - [address] [place] [address] Eduardo Ha MD [address] [facility], [address] [place] [address] Medications Refill Social History [...] Notes * Telephone Encounter - Luis Enrique Hollis, DAVID - 10/06/2017 0907 EST Doctor: Eduardo Ha MD Requested Medication(s): latanoprost Last appointment date: 09/11/17 Last appointment note regarding medication:'latan QHS OS,' Next appointment date: 10/16/17 * Telephone Encounter - Renetta Malone - 10/06/2017 0903 EST Medication Refill Medication(s) Requested: ?? latanoprost (XALATAN) 0.005 % ophthalmic solution Pharmacy (reconcile pharmacy list): [facility] in [place], [place] Is patient out of medication? Yes [...] documented as of this encounter Care Teams Back Filler Operator Relationship Specialty Start Date End Date John Cee MD PCP - General 06/07/15 documented as of this encounter
--- OUTSIDE RECORDS SUMMARY | 2024-09-05 16:11 | XMS_ITS | Encounter Summary ---
Author Organization [facility] Address [address] [place] [address] Care Team Providers Care Chemical Processing Supervisor Name Role Phone Unavailable Primary Care Provider Unavailabl e Encounter Details Date Type Department Care Team (Late st Contact Info) Description 01/11/2007 13:[address] [facility] [address] [place] [address] Giorgi Morales MD [address] [place], [place] [address] Discharge Disposition: Auto Discharge Social History Tobacco [...]
--- OUTSIDE RECORDS SUMMARY | 2024-09-05 16:11 | XMS_ITS | Encounter Summary ---
Author Organization [facility] Address [address] [place] [address] Care Team Providers Care Smt Operator Name Role Phone Giorgi Morales MD Primary Care Provider [phone] Reason for Referral * Radiology Services (Routine/Next Available) - Closed Specialty Diagnoses / Procedures Referred By Enedina hernandez Referred To Contact Diagnoses Neck pain Procedures CERVICAL SPINE 2-3 VIEWS Eric Gannon MD Phone: tel: fax: Referral ID Status Reason Start Date Expiration Date Visits Re quested Visits Authorized [id number] Closed 02/25/2012 1 1 Reason for Visit * Reason Onset Date Comments Pre-visit Orders 02/25/2012 Encounter Details Date Type Department Care Team (Late st Contact Info) Description 02/25/2012 Orders Only [facility] Spine Program - [address] [address] Eric Gannon MD [address] [place] [address] [place] [address] Neck pain (Primary Dx) Social History [...] 2012 01:27:00 PM Signs and Symptoms/Comments: ?? 723.1-[id number]-WNY-9-CM Neck Pain; s/p C1 fracture 02/11/12 out [...] 05, 2012 01:27:00 PM Signs and Symptoms/Comments: 723.5-[id number]-NIJ-9-CM Neck Pain; s/p C1 fracture 02/11/12 out [...] and 3 bodies appear to be fused. us Eric Gannon MD IMG DIAGNOSTIC IMAGING ORDER [place] Final Result documented in this encounter Visit Diagnoses Diagnosis Neck pain- Primary Cervicalgia documented in this encounter Care Teams Smt Operator Relationship Specialty Start Date End Date Giorgi Morales MD [address] [place] [address] PCP - General 02/11/12 06/06/15 documented as of this encounter
--- OUTSIDE RECORDS SUMMARY | 2024-09-05 16:11 | XMS_ITS | Encounter Summary ---
Author Organization [facility] Address [address] [place] [address] Care Team Providers Care Aerospace Control And Warning Systems Name Role Phone John Cee MD Primary [...] Info) Description 07/22/2017 9:00 EST Office Visit [facility] Ophthalmology - [address] [address] Eduardo Ha MD [address] [facility], [address] [place] [address] Discharge Disposition: Auto Discharge Social [...] Refills Last Filled Start Date End Date acetaZOLAMIDE (DIAMOX SR) 500 mg capsule Take [...] Endocrine: NL Hematologic: NL Immunologic: Drug Allergy Fire Chief'S Aide: Exposures: None Other: Attestation: Allergies include: Penicillins Patient Active Problem List Diagnosis ??? Fall ??? Fracture of cervical vertebra ([facility]) ??? Fracture of left clavicle ??? Macular [...] Date ??? Cataract ??? Hypertension ??? Seizure ([facility]) November 2006 grand mal seizure, witnessed by [...] slight better, pt comfortable -- IOP today 12 / 32 -- no NVI/NVA today, clearly an improvement since initialDJD visit and good view into TM with only a few PAS -- believe angle may resume functioning, and given poor visual prognosis and pt's current comfort, will defer SHIPPING LEAD diode for now -- pt to see [facility] 5 D for likely PRP -- stop oflox, otherwise cont rx as below, F/U here ~ 1 W: IOP OU, possible SHIPPING LEAD diode ON: ~0.5 / ~0.5 -- RAPD [...] view Vessels Normal ? NVD Care Teams Aerospace Control And Warning Systems Relationship Specialty Start Date End Date John Cee MD PCP - General 06/07/15 documented as of this encounter
--- OUTSIDE RECORDS SUMMARY | 2024-09-05 16:11 | XMS_ITS | Encounter Summary ---
Author Organization [facility] Address [address] [place] [address] Care Team Providers Care Medicaid Eligibility Specialist Name Role Phone Unavailable Primary Care Provider Unavailabl e Encounter Details Date Type Department Care Team ([facility] Contact Info) Description 01/11/2007 Before PRISM Converted Visit (Maple) [facility] - Maple conversion [address] [place] [address] Prashant Jefferson MD [address] [facility]. [address] [place] [phone] Social History Tobacco Use Types Packs/Day Years Used Date Smoking Tobacco: Never Assessed Sex and Gender Information Value Date Recorded Sex Assigned at Not on file Legal Sex Male 18:40 EST Gender Identity Not on file Sexual Orientation Not on file documented as of this encounter Progress Notes * Prashant Jefferson MD - 07/03/2009 1216 EST January 11, 2007 Giorgi Morales MD [facility] [address] [place] [address] Morales, Thank you for the [...] Jefferson MD A - stephanie Job ID: [id number] Document ID: [id number] cc: MD Jovani Castillo MD documented in this encounter Plan of Treatment Not on file documented as of this encounter Visit Diagnoses Not on filedocumented in this encounter
--- OUTSIDE RECORDS SUMMARY | 2024-09-05 16:11 | XMS_ITS | Encounter Summary ---
Author Organization [facility] Address [address] [place] [address] Care Team Providers Care Polisher And Buffer Name Role Phone John Cee MD Primary [...] Info) Description 08/11/2017 10:15 EST Office Visit 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 Fall ??? Fracture of cervical vertebra ([facility]) ??? Fracture of left clavicle ??? Macular [...] Date ??? Cataract ??? Hypertension ??? Seizure ([facility]) November 2006 grand mal seizure, witnessed by [...] not back to baseline -- IOP today 15 / 32 NVI / NVA resolved, angle mainly open [...] moderate drusen Vessels Normal attenuated Care Teams Polisher And Buffer Relationship Specialty Start Date End Date John Cee MD PCP - General 06/07/15 documented as of this encounter
--- OUTSIDE RECORDS SUMMARY | 2024-09-05 16:11 | XMS_ITS | Encounter Summary ---
Author Organization [facility] Address [address] [place] [address] Care Team Providers Care Air Drier Machine Operator Name Role Phone John Cee MD [...] Info) Description 10/16/2017 10:00 EST Office Visit [facility] Ophthalmology - [address] [address] Eduardo Ha MD [address] [place] [address], [address] [place] [address] Discharge Disposition: Auto Discharge Social [...] Endocrine: NL Hematologic: NL Immunologic: Drug Allergy Community [facility] Program Representative: Exposures: None Other: Attestation: Allergies include: Penicillins [...] Cataract ??? Glaucoma ??? Hypertension ??? 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
--- OUTSIDE RECORDS SUMMARY | 2024-09-05 16:11 | XMS_ITS | Encounter Summary ---
Author Organization [facility] Address [address] [place] [address] Care Team Providers Care Teaching Manager Name Role Phone John Cee MD [...] Info) Description 01/10/2019 12:45 EDT Office Visit [facility] Ophthalmology - [address] [address] Eduardo Ha MD [address] [facility], [address] [place] [address] Discharge Disposition: Auto Discharge Social [...] Psychiatric: Endocrine: NL Hematologic: NL Immunologic: NL Identifier Horse: Exposures: None Other: Attestation: Allergies include: Penicillins [...] Cataract ??? Glaucoma ??? Hypertension ??? Seizure ([facility] November 2006 grand mal seizure, witnessed by [...] Normal Normal Refraction Wearing Rx Sphere Cylinder [place] Add Right +0.50 +1.00 008 +3.00 Left +0.50 +0.75 005 +3.00 Age: 3yrs Type: Bifocal Manifest Refraction Sphere Cylinder [place] Dist VA Add Near VA Right [place] +1.00 003 20/30 -2 +2.75 J1+ (-2) [...] Cap by mouth daily. 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 Therapy completed 01/14/2018 01/10/2019 brimonidine (ALPHAGAN) [...] Periphery Normal Normal Wearing Rx Sphere Cylinder [place] Add Right eye +0.50 +1.00 008 +3.00 Left eye +0.50 +0.75 005 +3.00 Age: 3yrs Type: Bifocal Manifest Refraction Sphere Cylinder [place] Dist VA Add Near VA Right eye [place] +1.00 003 20/30 -2 +2.75 J1+ (-2) Left eye Care Teams Teaching Manager Relationship Specialty Start Date End Date John Cee MD PCP - General 06/07/15 documented as of this encounter
--- OUTSIDE RECORDS SUMMARY | 2024-09-05 16:11 | XMS_ITS | Encounter Summary ---
Author Organization [facility] Address [address] [place] [address] Care Team Providers Care Automobile Service Station Attendant Name Role Phone John Cee MD Primary Care Provider Unav ailable Reason for Visit * Reason Comments Eye Exam 1 W: IOP OU, possibl e FORKLIFT MECHANIC diode. 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 s/p laser surgery (07/27/2017 Dr Nicholson). Vision may have improved left eye; right eye is OK. Modifying factors: nothing Associated Signs & Symptoms: No new floaters or flashes. No pain. Attestation: ROS Constitutional: NL ENT/Mouth Cardiovascular: High Blood Pressure Respiratory: NL Gastrointestinal: NL Genitourinary: NL Musculoskeletal: NL Integumentary: NL Neurologic: NL Psychiatric: NL Endocrine: NL Hematologic: NL Immunologic: Drug Allergy Sales Route Driver Helper: Exposures: None Other: Attestation: Allergies include: Penicillins Patient Active Problem List Diagnosis ??? Fall ??? Fracture of cervical vertebra ([facility]) ??? Fracture of left clavicle ??? Macular [...] Date ??? Cataract ??? Hypertension ??? [place] November 2006 grand mal seizure, witnessed by [...] Glasses Tonometry (Applanation, 11:29) Right Left Pressure Gonioscopy OS: few scattered PAS otherwise open [...] view Vessels Normal scattered NVD Care Teams Automobile Service Station Attendant Relationship Specialty Start Date End Date John Cee MD PCP - General 06/07/15 documented as of this encounter
--- OUTSIDE RECORDS SUMMARY | 2024-09-05 16:11 | XMS_ITS | Encounter Summary ---
Author Organization [facility] Address [address] [place] [address] Care Team Providers Care Utility Aircrewman Name Role Phone John Cee MD Primary Care Provider Unav ailable Reason for Visit * Reason Onset Date Comments Medications Refill 12/09/2018 Encounter Details Date Type Department Care Team (Late st Contact Info) Description 12/09/2018 Refill [facility] Ophthalmology - [address] [address] Eduardo Ha MD [address] [place] [address], [address] [place] [phone] Medications Refill Social History Tobacco Use Types [...] Requested: Brimonidine, Dorzotamide, Latanoprost Preferred Pharmacy: [facility] Is patient out of medication? Yes [...] documented as of this encounter Care Teams Utility Aircrewman Relationship Specialty Start Date End Date John Cee MD PCP - General 06/07/15 documented as of this encounter
--- OUTSIDE RECORDS SUMMARY | 2024-09-05 16:11 | XMS_ITS | Encounter Summary ---
Author Organization [facility] Address [address] [place] [address] Care Team Providers Care Floor Covering Layer Name Role Phone John Cee MD Primary Care Provider Unav ailable Reason for Visit * Reason Onset Date Comments Medications Refill 11/23/2017 Brimonidine, Dorzolanide, and Latauoprost 2 bottle if posible. Encounter Details Date Type Department Care Team (Late st Contact Info) Description 11/23/2017 Refill [facility] Ophthalmology - [id number] [place] [address] Eduardo Ha MD [address] [facility], [facility] [address] [place] [address] Medications Refill (Brimonidine, Dorzolanide, and [...] Encounter - Gutierrez Greco OTA - 11/23/2017 0988 EDT Reached pt on fourth attempt. Pt [...] documented as of this encounter Care Teams Floor Covering Layer Relationship Specialty Start Date End Date John Cee MD PCP - General 06/07/15 documented as of this encounter
--- OUTSIDE RECORDS SUMMARY | 2024-09-05 16:11 | XMS_ITS | Encounter Summary ---
Author Organization [facility] Address [address] [place] [address] Care Team Providers Care Last Putter Away Name Role Phone John Cee MD Primary Care Provider Unav ailable Reason for Visit * Reason Onset Date Comments Medications Refill 04/05/2018 Encounter Details Date Type Department Care Team (Late st Contact Info) Description 04/05/2018 Refill [facility] Ophthalmology - [address] [address] Eduardo Ha MD [address] [place] [address], [address] [place] [phone] Medications Refill Social History Tobacco Use Types [...] - Luis Enrique Hollis RN - 04/05/2018 09 EDT Doctor: Eduardo Ha MD Requested Medication(s): [...] documented as of this encounter Care Teams Last Putter Away Relationship Specialty Start Date End Date John Cee MD PCP - General 06/07/15 documented as of this encounter
--- OUTSIDE RECORDS SUMMARY | 2024-09-05 16:11 | XMS_ITS | Encounter Summary ---
Author Organization [facility] Address [address] [place] [address] Care Team Providers Care Fish Bait Processing Supervisor Name Role Phone John Cee MD Primary Care Provider Unav ailable Reason for Visit * Reason Onset Date Comments Other 01/13/2018 Encounter Details Date Type Department Care Team (Late st Contact Info) Description 01/13/2018 Refill [facility] Ophthalmology - [phone] [place] [address] Eduardo Ha MD [address] [place] [address], [facility] [address] [place] [address] Other Social History Tobacco Use [...] Last Filled Start Date End Date acetaZOLAMIDE (DIAMOX) 250 mg tablet Take 500 mg now and take 500 mg again at 700 pm. 4 Tab 01/14/2018 01/14/2018 documented in this encounter Miscellaneous Notes * Telephone Encounter - Luis Enrique Hollis RN - 01/13/2018 1432 EDT Called [facility] in [place]. Called in 500 mg now and 500 mg for 7pm tonight. Called patient. Stated we had called in the RX to the [facility] in [place]. I was not rebecca about directions so [...] Hollis RN - 01/13/2018 1406 EDT Called [facility] in [place] and they do not have any in stock but they told me that the [facility] had some. * Telephone Encounter - Patience [...] on filedocumented in this encounter Care Teams Fish Bait Processing Supervisor Relationship Specialty Start Date End Date John Cee MD PCP - General 06/07/15 documented as of this encounter
--- OUTSIDE RECORDS SUMMARY | 2024-09-05 16:11 | XMS_ITS | Encounter Summary ---
Author Organization [facility] Address [address] [place] [address] Care Team Providers Care Sliding Joint Maker Name Role Phone Giorgi Mueller MD Primary Care Provider [phone] Reason for Visit * Reason Comments Trauma see flow chart Encounter Details Date Type Department Care Team (Late st Contact Info) Description 02/11/2012 13:35 EDT - 02/17/2012 10:00 EDT Hospital Encounter [facility] Cardiothoracic Surgery Unit [address] [place] [address] Jorge Solomon MD [address] [facility] [address] [place] [address] Sharad Duckworth MD PhD Cervical spine fracture ([facility]) ([facility]) Discharge Disposition: Home or Self Care [...] Index - - documented in this encounter Mental Status * Because of a physical, mental, or emotional condition, do you have serious difficulty concentrating, remembering, or making decisions? (5 years old or older) Answer Entry Date Author Yes 02/11/2012 21:02 EDT Dennis Mckeon RN documented in this encounter Discharge Summaries * Hector Dias [...] of htn and ?seizures. [facility] falling[facility] his loft bed and [...] placement and was discharged on 02/17/12 to [facility] with instructions to [...] 0 cc: PCP:GIORGI MUELLER MD Referring Prov:Aris Herrera Discharge Summary Completed: 02/17/2012 Cosigned by Sharad Duckworth MD at 02/17/2012 7:09 EDT documented in this encounter Discharge Instructions * [...] drainage at procedure or wound site Appointments: [place] J collar for 6 weeks, ok to remove for hygiene. Follow up in two weeks in non-op spine clinic with Dr. Brody, please call [phone] for an appointment guy HAMM for comfort. follow up in ortho trauma clinic with Dr. Prince or Rajni in two weeks, please call [phone] for an appointment You do not need to follow up with the trauma clinic. Please call if you have any other questions orconcerns. [phone] You should follow up with your primary care physician in 7-10 days to determine if this fall was related to an underlying condition. Follow-up Services Contacted at Discharge: none Health Risk and Disease Information: Not applicable documented in this encounter Medications at Time of Discharge docusate sodium (COLACE) 100 mg capsule Take 2 Caps by mouth 2 times daily. 02/12/2012 06/07/2015 oxycodone-acetami nophen (PERCOCET) 5-325 mg per tablet Take 1-2 Tabs by mouth every 4 hours as needed for Pain. 60 Tab 0 02/12/2012 06/07/2015 documented as of this encounter Ordered Prescriptions Prescription Sig Dispense Quantity Refills Last Filled Start Date End Date oxycodone-acetamin ophen (PERCOCET) 5-325 mg per tablet Take 1-2 Tabs by mouth every 4 hours as needed for Pain. 60 Tab 0 02/12/2012 06/07/2015 docusate sodium (COLACE) 100 mg capsule Take 2 Caps by mouth 2 times daily. 02/12/2012 06/07/2015 documented in this encounter Discharge Disposition Disposition Code Departure Means Destination Home or Self Care documented in this encounter Progress Notes * Jackeline Walshe, PT - 02/17/2012 1042 EDT Rehabilitation Therapies [facility] Physical Therapy Discontinue/Discharge Note Date of Service: 02/17/2012 Precautions: Activity as tolerated, Rebekah Selby ortho notes; NWB LUE, sling [...] seen by a physical therapist andphysical therapist biology research assistant. Frequency: daily 3 times per week. [...] increased c/o pain. Physical Therapy Prognosis: Per CLOTH BLEACHING RANGE OPERATOR CHIEF note 02/16/12, Pt tolerated all mobility well [...] will benefit from PT intervention in a [facility] setting with goals of maximizing patient activity [...] Recommended Discharge Destination: Home with caregiver vs [facility] Recommended Discharge Services: Home health physical therapy vs Rehab Recommended Equipment Needs: To be determined by next care provider Other recommendations: No other consults recommended at this time Pager: [phone] Becky Sheldon, CLOTH BLEACHING RANGE OPERATOR CHIEF 02/17/2012 10:42 Freya Walsh PT [phone] * Tana Wang OT - 02/17/2012 0828 EDT Rehabilitation Therapies [facility] - Occupational Therapy Discontinue/Discharge Note Date [...] L clavicle fracture, C 1 fracture ( Bois Forte J at all times) Areas of Occupation [...] to d/c GOALS: Short Term Goals: n/a Environmental Services Supervisor Goals: all goals discontinued Pt will use long handled equip for LB dressing and bathing Pt will demonstrate the ability to don UB garments with verbal cues Family will verbalize understanding of the amount of assistance he will need at d/c PLAN: Discontinue occupational therapy at [facility]. Discharge plan: [facility] Follow-up services: OT Discharge equipment: none Pager: [phone] TANA WANG OT, 02/17/2012, 8:28 * Hector Dias MD - 02/17/2012 0716 EDT Trauma Surgery Progress Note Date of [...] rehab today Plan: Continue PT/OT Pain control OOB Al at all times BP control Rehab today [...] 02/17/2012 7:16 * Guerda Luevano - 02/16/2012 6979 EDT Pt. Is skilled level of care as of today. Continue to follow. Pt. Is now medically ready for [facility]. Accepted to [facility].For shane. Am. Will be leaving at 0900 by Katherine. Phone number for nursing report in sticky notes. Will need hard copies of any narcotics that will be prescribed. Daughter aware. Will update pt., team and unit. Juanis Luevano RN, Trauma CM #[id number] * Becky Sheldon - 02/16/2012 1148 EDT Rehabilitation Therapies [facility] Physical Therapy Encounter Note Date of [...] Work consult Primary Therapist: Freya Walsh Pager: [phone] Becky Sheldon, CLOTH BLEACHING RANGE OPERATOR CHIEF 02/16/2012 11:48 * Tana Wang OT - 02/16/2012 1143 EDT Rehabilitation Therapies [facility] - Occupational Therapy Encounter Note Date of Service: 02/16/2012 SUBJECTIVE: This sling could be higher OBJECTIVE: Time: 9916-7329 Interventions included: Self-Care/Home Management: pt seated in [...] no reported pain PLAN: Continue adls Pager: [phone] TANA WANG OT, 02/16/2012, 11:43 * Federico Doherty PA - 02/16/2012 0713 EDT Trauma Surgery Progress Note Date of [...] from a medical standpoint. Awaiting placement to [facility]. Plan: Continue PT/OT Pain control OOB Bois Forte-J at all times Awaiting placement to rehab [...] from a medical standpoint. Awaiting placement to [facility] Plan: Continue PT/OT Pain control DINAH [...] from a medical standpoint. Awaiting placement to [facility] Plan: Continue PT/OT Pain control DINAH [...] SAH. Rigoberto Lerner MD, FACS * Tana Wang, OT - 02/13/2012 9829 EDT Rehabilitation Therapies [facility] - Occupational Therapy Encounter Note Date of Service: 02/13/2012 SUBJECTIVE: It hurts to lean over to reach my feet OBJECTIVE: Time: 1306-0858 and 4089-5040 Interventions included: Self-Care/Home Management: pt was seated [...] this time PLAN: Continue with adls Pager: [phone] TANA WANG, OT, 02/13/2012, 14:49 * Priyank Pardo, PT - 02/13/2012 1420 EDT Rehabilitation Therapies [facility] Physical Therapy Encounter Note Date of [...] while pt rested in w/c. (taken to stairwell in w/c). Daughter present but dealing with fussy baby. Upon return to room, onsite case manager arrived, and lengthy discussion with onsite case manager and again laterwith OT re; feasibility of [...] recommendations: Social Work consult Primary Therapist: Pager: [phone] PRIYANK PARDO PT 02/13/2012 14:20 * Guerda Leuvano - 02/13/2012 4665 EDT Covering for Inez Storm today. Received [...] atthat time. Juanis Luevano RN, trauma CM #[id number] * Annalee Avalos MD - 02/13/2012 9165 EDT Trauma Tertiary Survey Admit Date: 02/11/2012 [...] canals Neck: supple, non-tender, trachea midline and [place] j in place Respiratory: clear to auscultation [...] Annalee Avalos MD 02/13/2012 15:51 * Shayy Storm RN - 02/12/2012 1610 EDT I spoke to physical therapy and pt may need hospital bed upon discharge. I also spoke to April- ptkishan and she is able to physically assist him in and out of bed if needed and stated that her house is set up to have a hospital bed if needed. She has requested home health aide to assist and I will have team order home health services. April will be here tomorrow at 11am to be here during PT se ssi and to bring him home with her if he is able to be discharged. Please contact Lyndsey Luevano who will be covering for me tomorrow if he needs a hospital bed. [facility]#[id number] * Priyank Pardo, PT - 02/12/2012 2276 EDT [facility] Physical Therapy Contact Note Date of Service: 02/12/2012 Evaluation completed with full note to follow. Pt not ready for d/c today. Question if pt will needrehab. Will see how he does tomorrow a.bishnu PARDO PT 02/12/2012 14:36 * Priyank Pardo, PT - 02/12/2012 1635 EDT [facility] Physical Therapy Initial Evaluation Note Date of [...] to CERVICAL SPINE FX Thepatient lives at [address] [place] [address] HPI: (Per Dr. Ramirez's note 02/10) Jimmy Gil is a 71 y.o. male w/ hx of htn who awoke this morningwith neck pain and L shoulder pain. Also had some blood around his ears. Taken to [facility] and found to have a L clavicle and C1 fracture. [facility]red to [facility] for management. [place] fine before bed last evening. Hx of [...] going to stay with his daughter in [place], [place], who is available 24hr/day Equipment Available: [...] provided by physical therapist and/or physical therapist biology research assistant when medically appropriate. Frequency: daily 5 [...] other consults recommended at this time Pager: [phone] PRIYANK PARDO PT 02/12/2012 11:43 * Tana Wang, OT - 02/12/2012 1034 EDT Rehabilitation Therapies [facility] Occupational Therapy Initial Evaluation Note Date [...] to CERVICAL SPINEFX The patient lives at [address] [place] [address] History of Present Illness/Injury: Per BST : [...] to his daughters home, she is home maritime guard. Several steps in, thenon one floor. She [...] to c collar Hearing: he is slightly [place] Neuromusculoskeletal and Movement Related Functions: Range of [...] healing of fracture Short Term Goals: n/a Environmental Services Supervisor Goals: 1 week ?? Pt will use [...] Discharge Plan: Home with family assist Pager: [phone] TANA WANG OT, 02/12/2012, 10:37 * Shayy Storm RN - 02/12/2012 1010 EDT Brief Case Management Assessment Reason for Hospitalization: Pt woke up with blood on his pillow and found blood on the floor at the bottom of his loft. He apparently fell off the 6 foot loft onto the ground in the middle of the night. He was transferred from [facility] for further care. He sustained L clavicle fx, C1 fx which are not needing surgical repair. Neryll have [place]-J collar for six weeks. Current Living Arrangements: [place]- he sleeps in loft which he climbs a ladder to enter. Current Social, Health Care and Community Supports: No comm svcs, PCP Luis Alberto Cee at [facility], Medicare and Medicaid Identified Case Management/Social [...] to stay with his daughter- April in [place] during his recovery so she can assist with his care. Nicanor will be driving him there today if he is discharged, otherwise she will return tomorrow to get him. She lives in two story home and they can make arrangements for [...] fxs. Question of seizure activity. [facility]mitted to [facility] to management. No Tele events. Assessment: 71 y.o. male s/p fall out of loft bed who sustained a C1 Vidal fracture, Left Clavicle fracture. Question of cause of fall in question - possible seizure activity. Transferred to yesterday PM.Afebrile oevrinight. VSS Plan: OT eval. [...] OT - 02/12/2012 0815 EDT Rehabilitation Therapies [facility] Occupational Therapy Initial/Discontinue Evaluation Note Date [...] CERVICAL SPINEFRACTURE [805.00] The patient lives at [address] [place], [place] [id number] History of Present Illness/Injury: Patient is a 71 y.o. male who presents as transfer from [facility]. Perreport pt fell out of his loft [...] to his daughters home, she is home maritime guard. Several steps in, thenon one floor. She [...] Repetition: Memory: Judgement: Comprehension: Global Mental Functions: [place] Orientation and Amnesia Test (GOAT) score:80 (below 65 = impaired, 66-75 = borderline impaired, 76-100 = normal) Sensory Functions: Vision: limited by his collar for lower peripheral glasses. He wears bifocals Hearing: slightly [place] Neuromusculoskeletal and Movement Related Functions: Not evaluated [...] noted Outcome: verbalized understanding Team Communication: With [facility] prior to eval ASSESSMENT: The patient was appropriate for skilled occupational therapy evaluation due to a traumatic brain injury. The patient appears to have no new cognitive deficits as a result of the traumatic brain injury. Skilled occupational therapy is no longer indicated, for his cognition . GOALS: Short Term Goals: None identified at this time Detention Goals: Was set and met The patient/family verbalizes understanding of the adult head injury fact sheet PLAN: Intervention: Discontinue occupational therapy at [facility]. Further Data: None Patient/Family Education: none Discharge Plan: Home with family Pager: [phone] TANA WANG OT, 02/12/2012, 8:16 documented in this encounter H&P Notes * Hector Dias MD - 02/11/2012 1114 EDT Trauma Surgery Admission H+P Date/Time of Injury: 02/10/12 Date/Time Arrival to FA: 02/11/2012 Date of Service: 02/11/2012 Transferred from: [facility] Mode of Transport: Ambulance Trauma Alert: [...] y.o. male who presents as transfer from [facility]. Per report pt fell out of his [...] Ambulate SCDs Hector Dias MD 02/11/2012 17:43 Cosigned by Sharad [place] MD at 02/12/2012 10:10 EDT documented in this encounter Procedure Notes * BATCH MIXER OPERATOR, SCAN 2 - 02/20/2012 1949 EDTAssociated Order(s): [...] some blood around his ears. Taken to [facility] and found to have a L clavicle and C1 fracture. [facility]. [place] fine before bed last evening. Hx of [...] - lives alone in a house near [facility]. Remote hx of heavy alcohol consumption, no etoh in two years,smokes tobacco occasionally - lives at [address] [address] Fam Hx: No family history on file. ROS: [...] Biceps Triceps Wrist ext Wrist flex EPL Gang Supervisor DAB PAD Right 5 5 5 5 [...] ??? Fracture of left clavicle Plan: ?? Bois Forte J collar for 6 weeks, ok to remove for hygiene ?? No additional spinal precautions ?? LUE NWB, sling for comfort, follow up in ortho trauma clinic with Dr. Prince or Rajni intwo weeks, please call [phone] for an appointment ?? Follow up in two weeks in non-op spine clinic with Dr. Brody, please call [phone] for an appointment ?? Ortho spine (Drs. Tillman and Jnaey) and ortho trauma (Drs. Neves and Rajesh) to sign off ?? This patient will be signed out and followed while admitted by the above mentioned ortho team members ?? Please call with questions Discussed with Dr. Teressa Ramirez MD Orthopedic Surgery [phone] Cosigned by Eric Gannon MD at 02/12/2012 8:24 EDT documented in this encounter ED Notes * Samantha Reyes - 02/11/2012 1524 EDT Report called to [facility], awaiting pt transport * Samantha Reyes [...] No bleed, C1 Fx Ortho eval => Bois Forte J collar no sx indicated at this [...] - 02/11/2012 1120 EDT TCALL: Transfer from [facility] accepted by Dr Duckworth for care [...] encounter Miscellaneous Notes * Scanned Note-Null - BATCH MIXER OPERATOR, SCAN 2 - 02/20/2012 194 EDT * Scanned Note-Null - BATCH MIXER OPERATOR, SCAN 2 - 02/20/2012 1949 EDT * Scanned Note-Null - BATCH MIXER OPERATOR, SCAN 2 - 02/19/2012 0739 EDT * [...] stretcher in stable condition. No distress noted. [facility] left with patient @ 0940 to [facility] 02/17/2012 10:27 Ronit [...] discharge and every two hours while on PATIENT CARE TECHNICIAN INSTRUCTOR or epidural. Data: Patient reported a 4 [...] For Patient Active Multi-Disciplinary problems: FALL RISK [661511] (02/11/12) PAIN [873593] (02/12/12) MOBILITY [358627] (02/13/12) ELIMINATION [347853] (02/14/12) CIRCULATORY STATUS [[id number]] (02/14/12) Data: Pt transferring and ambulating independently in room. Action: Observed pt ambulation in [place] with OT. Response: Pt ambulating with steady gait. CTM for issues with ambulation. Anabela Mendoza RN 02/16/2012 13:31 * Miscellaneous - BATCH MIXER OPERATOR, SCAN 2 - 02/16/2012 0856 EDT * [...] Care - Sarai Mirza RN - 02/15/2012 1739 EDT Problem: PAIN Goal: Patient???s Pain And Discomfort Are Adequately Managed Intervention: Identify appropriate pain tool Active Multi-Disciplinary problems: FALL RISK [355342] (02/11/12) PAIN [784706] (02/12/12) MOBILITY [770923] (02/13/12) ELIMINATION [448605] (02/14/12) CIRCULATORY STATUS [[id number]] (02/14/12) Data: Pt has been declining pain [...] Adequately Managed Active Multi-Disciplinary problems: FALL RISK [116819] (02/11/12) PAIN [974031] (02/12/12) MOBILITY [501521] (02/13/12) ELIMINATION [744473] (02/14/12) CIRCULATORY STATUS [445494] (02/14/12) Data: Pt complained of 5/10 neck [...] in bed, NAD. Action: Dr. Rod with [facility] notified. Response: Plan to give IV Labetalol, [...] Care - Walker Ruiz RN - 02/13/2012 1455 EDT Problem: MOBILITY Goal: Mobility/Activity Is Maintained At Optimum Level For Patient Active Multi-Disciplinary problems: FALL RISK [311592] (02/11/12) PAIN [918114] (02/12/12) MOBILITY [163932] (02/13/12) Data:pt has been working c PT ambulating in mckeon, making progress, OT involved also Action: medicated c percs which relieve pain Response: mobility has been slowly improving but will need more time, family decided on sub- acute rehab since daughter not able to take care of maritime guard Walker Ruiz RN 02/13/2012 14:50 * Scanned Note-Null - BATCH MIXER OPERATOR, SCAN 2 - 02/13/2012 1238 EDT * Plan of Care - Argelia Soler RN - 02/13/2012 0301 EDT Problem: PAIN Goal: Patient???s Pain And Discomfort Are Adequately Managed Active Multi-Disciplinary problems: FALL RISK [627616] (02/11/12) PAIN [558763] (02/12/12) Data: Pt complained of 5/10 neck [...] Adequately Managed Active Multi-Disciplinary problems: FALL RISK [822629] (02/11/12) PAIN [816625] (02/12/12) Data: Upon awakening this AM, the pt complained of 5/10 neck and clavicle pain. Pt had been pain free throughout the night. VSS. Action: Pt given 2 tablets of Percocet, see MAR. Response: Will continue to assess and monitor. ARGELIA SOLER RN 02/12/2012 5:07 * Scanned Note-Null - BATCH MIXER OPERATOR, SCAN 2 - 02/11/2012 1841 EDT * Plan of Care - Walker Ruiz RN - 02/11/2012 1710 EDT Problem: FALL RISK Goal: Patient will remain free of falls Active Multi-Disciplinary problems: FALL RISK [006249] (02/11/12) Data: pt transfer to [facility] from ed, pt arrived in stretcher, transfer to bed, family c pt Action:oriented pt to room call light and controls, ordered food, answered questions of family Response: pt settled into new room, notified for family to speak to Walker Ruiz RN 02/11/2012 17:07 * Scanned Note-Null - BATCH MIXER OPERATOR, SCAN 2 - 02/11/2012 1512 EDT * Scanned Note-Null - BATCH MIXER OPERATOR, SCAN 2 - 02/11/2012 1512 EDT * Scanned Note-Null - BATCH MIXER OPERATOR, SCAN 2 - 02/11/2012 1512 EDT documented [...] EDT) 02/20/2012 19:4 9 EDT Narrative Transcriptions BATCH MIXER OPERATOR, SCAN 2 - 02/20/2012 19:49 EDT us Scan 2 Camp Attendant PROCEDURE/MINOR SURGICAL OR DERABLES Final Result * CREATININE (02/14/2012 6:35 EDT) Creatinine 0.69 0.66 - 1.25 mg/dl [facility] GFR, Calculated >60 >60 ml/min/1.7 3m2 [facility] Blood specimen (specimen) 02/14/2012 6:35 EDT 02/14/2012 7:44 EDT Federico Doherty PA-C CHEMISTRY & BLOOD GAS ORD ERABLES Final Result Performing Organization Address [facility] Co de Phone Number [facility] [address] [place] [address] * BUN (02/14/2012 6:35 EDT) BUN 18 10 - 26 mg/dl [facility] Blood specimen (specimen) 02/14/2012 6:35 EDT 02/14/2012 7:44 EDT Federico ANDREWSC CHEMISTRY & BLOOD GAS ORD ERABLES Final Result Performing Organization Address [facility] [address] [facility] de Phone Number [facility] [address] [place] [address] * ELECTROLYTES (02/14/2012 6:35 EDT) Sodium 137 136 - 145 mEq/L [facility] Potassium 4.2 3.5 - 5.0 mEq/L [facility] Chloride 101 96 - 110 mEq/L [facility] CO2 27 24 - 32 mEq/L [facility] Blood specimen (specimen) 02/14/2012 6:35 EDT 02/14/2012 7:44 EDT Federico ANDREWSC CHEMISTRY & BLOOD GAS ORD ERABLES Final Result Performing Organization Address [facility] de Phone Number [facility] [address] [place] [address] * CREATININE (02/13/2012 6:39 EDT) Creatinine 0.69 0.66 - 1.25 mg/dl [facility] GFR, Calculated >60 >60 ml/min/1.7 3m2 [facility] Blood specimen (specimen) 02/13/2012 6:39 EDT 02/13/2012 7:49 EDT Federico Doherty PA-C CHEMISTRY & BLOOD GAS ORD ERABLES Final Result Performing Organization Address [facility] de Phone Number [facility] [address] [place] [address] * BUN (02/13/2012 6:39 EDT) BUN 17 10 - 26 mg/dl [facility] Blood specimen (specimen) 02/13/2012 6:39 EDT 02/13/2012 7:49 EDT Federico Doherty PA-C CHEMISTRY & BLOOD GAS ORD ERABLES Final Result Performing Organization Address [facility] de Phone Number [facility] [address] [place] [address] * ELECTROLYTES (02/13/2012 6:39 EDT) Sodium 140 136 - 145 mEq/L [facility] Potassium 4.0 3.5 - 5.0 mEq/L [facility] Chloride 102 96 - 110 mEq/L [facility] CO2 26 24 - 32 mEq/L [facility] Blood specimen (specimen) 02/13/2012 6:39 EDT 02/13/2012 7:49 EDT Federico Doherty PA-C CHEMISTRY & BLOOD GAS ORD ERABLES Final Result Performing Organization Address [facility]/State/ZIP Co de Phone Number [facility] [address] [place] [address] * CREATININE (02/12/2012 6:21 EDT) Creatinine 0.74 0.66 - 1.25 mg/dl [facility] GFR, Calculated >60 >60 ml/min/1.7 3m2 [facility] Blood specimen (specimen) 02/12/2012 6:21 EDT 02/12/2012 6:53 EDT Federico Doherty PA-C CHEMISTRY & BLOOD GAS ORD ERABLES Final Result Performing Organization Address [facility] Co de Phone Number [facility] [address] [place] [address] * BUN (02/12/2012 6:21 EDT) BUN 18 10 - 26 mg/dl [facility] Blood specimen (specimen) 02/12/2012 6:21 EDT 02/12/2012 6:53 EDT Federico FONG-C CHEMISTRY & BLOOD GAS ORD ERABLES Final Result Performing Organization Address [facility] de Phone Number [facility] [address] [place] [address] * ELECTROLYTES (02/12/2012 6:21 EDT) Sodium 138 136 - 145 mEq/L [facility] Potassium 4.2 3.5 - 5.0 mEq/L [facility] Chloride 102 96 - 110 mEq/L [facility] CO2 24 24 - 32 mEq/L [facility] Blood specimen (specimen) 02/12/2012 6:21 EDT 02/12/2012 6:53 EDT us Federico FONG-C CHEMISTRY & BLOOD GAS ORD ERABLES Final Result Performing Organization Address [facility] [address]/ZIP Co de Phone Number [facility] [address] [place] [address] * MRSA MOLECULAR DETECTION (02/11/2012 16:32 EDT) Specimen Description Nasal [facility] Result No Staphylococcus aureus detected by PCR. [facility] Specimen of unknown material (specimen) 02/11/2012 16:32 EDT 02/11/2012 17:01 EDT Federico Doherty PA-C MICROBIOLOGY - GENERAL OR DERABLES Final Result [facility] [address] [place] [address] * CERVICAL SPINE 2-3 VIEWS (02/11/2012 13:32 [...] C2 and C3 which is partially visualized. us Rashad Ramirez MD IMG DIAGNOSTIC IMAGING ORDER [place] Final Result * CLAVICLE COMPLETE (02/11/2012 13:32 EDT) Anatomical [...] of the left clavicle. Rashad Ramirez MD [facility] [place] [place] DIAGNOSTIC IMAGING ORDER [place] Final Result * CT ANGIO NECK (02/11/2012 12:29 EDT) [...] 8. No arterial dissection or pseudoaneurysm identified. us Federico Doherty PA-C IMMarisol CT ORDERABLES Final R esult * CT HEAD WO CONTRAST (02/11/2012 12:27 [...] suggested. 5. C1 fractures. Federico Doherty PA-C IMG CT ORDERABLES Final R esult * PELVIS 1 OR 2 VIEWS (02/11/2012 [...] especially at symphysis noted. Federico Doherty PA-C [facility] DIAGNOSTIC IMAGING OR DERABLES Final Result * PORTABLE CHEST 1 VIEW (02/11/2012 11:59 [...] bilateral glenohumeral joint arthrosis. Federico Doherty PA-C IMG DIAGNOSTIC IMAGING OR DERABLES Final Result * HOLD GREEN TOP (02/11/2012 11:50 EDT) Hold Green Top Hold for further testing. Specimen will be held for 5 days. [facility] Blood specimen (specimen) 02/11/2012 11:50 EDT 02/11/2012 11:58 EDT Federico Doherty PA-C LAB INFO SERVICE AND SUPP ORT & PHONE RESULT Final Result [facility] [address] [place] [address] * HOLD BLUE TOP (02/11/2012 11:50 EDT) Hold Blue Top Sample for coagulation will be discarded after 4 hours [facility] Blood specimen (specimen) 02/11/2012 11:50 EDT 02/11/2012 11:58 EDT Federico Doherty PA-C LAB INFO SERVICE AND SUPP ORT & PHONE RESULT Final Result Performing Organization Address [facility] Co de Phone Number [facility] [address] [place] [address] * (ABNORMAL) SCREENING GLUCOSE (02/11/2012 11:50 EDT) Glucose, Screening 122(H) 70 - 100 mg/dl [facility] Blood specimen (specimen) 02/11/2012 11:50 EDT 02/11/2012 11:58 EDT us Federico Doherty PA-C CHEMISTRY & BLOOD GAS ORD ERABLES Final Result Performing Organization Address [facility] de Phone Number [facility] [address] [place] [address] * CREATININE (02/11/2012 11:50 EDT) Creatinine 0.71 0.66 - 1.25 mg/dl [facility] GFR, Calculated >60 >60 ml/min/1.7 3m2 [facility] Blood specimen (specimen) 02/11/2012 11:50 EDT 02/11/2012 11:58 EDT Federico Doherty PA-C CHEMISTRY & BLOOD GAS ORD ERABLES Final Result Performing Organization Address [facility] Co de Phone Number [facility] [address] [place] [address] * BUN (02/11/2012 11:50 EDT) BUN 19 10 - 26 mg/dl [facility] Blood specimen (specimen) 02/11/2012 11:50 EDT 02/11/2012 11:58 EDT us Federico Doherty PA-C CHEMISTRY & BLOOD GAS ORD ERABLES Final Result Performing Organization Address City/State/[facility] Co de Phone Number [facility] [address] [place] [address] * ELECTROLYTES (02/11/2012 11:50 EDT) Pathologist [facility] Sodium 136 136 - 145 mEq/L [facility] Potassium 4.6 3.5 - 5.0 mEq/L [facility] Chloride 100 96 - 110 mEq/L [facility] CO2 28 24 - 32 mEq/L [facility] Blood specimen (specimen) 02/11/2012 11:50 EDT 02/11/2012 11:58 EDT Federico Doherty PA-C CHEMISTRY & BLOOD GAS ORD ERABLES Final Result [facility] [address] [place] [address] * (ABNORMAL) HEMAGRAM AND DIFFERENTIAL (02/11/2012 11:50 EDT) Pathologist [facility] WBC 7.47 4.0 - 10.4 K/cmm [facility] [...] % Basophils 0.2 0.2 - 1.4 % [facility] ABS Neutrophils 6.50 2.20 - 8.85 K/cmm [facility] ABS Lymphs 0.64(L) 1.09 - 3.30 K/cmm [facility] ABS Monocytes 0.31 0.1 - 0.8 K/cmm [facility] ABS Eosinophils 0.00(L) 0.03 - 0.61 K/cmm [facility] ABS Basophils 0.01 0.01 - 0.11 K/cmm [facility] Type of Diff: Automated [facility] Blood specimen (specimen) 02/11/2012 11:50 EDT 02/11/2012 11:58 EDT Federico Doherty PA-C PACKAGES & DNA PROBE ORDE VAUGHN Final Result Performing Organization Address [facility] de Phone Number [facility] [address] [place] [address] * BLOOD BANK SPECIMEN HOLD (02/11/2012 11:30 EDT) Hold BB Spec will exp at 23:59, 3 days from collect date [facility] Comment:SAMPLE EXPIRES ON @ 23:59 Blood specimen (specimen) 02/11/2012 11:30 EDT 02/11/2012 11:30 EDT Federico Doherty PA-C BLOOD BANK TESTS Final Re sult Performing Organization Address [facility] de Phone Number [facility] [address] [place] [address] documented in this encounter Visit Diagnoses Diagnosis [...] mg, oral, DAILY, First dose on Roya 02/12/12 at 1430, Until Discontinued, Routine Given 02/17/2012 8:35 EDT 25 mg Given 02/16/2012 9:28 EDT 25 mg Given 02/15/2012 9:11 EDT 25 mg bisacodyl (DULCOLAX) suppository 10 mg 10 mg, rectal, DAILY PRN, Starting on 02/14/12 at 1402, Until Thu02/17/12 at 1202, Constipation, [...] PRN, Starting on Thu02/11/12 at 1558, Until 6/19/12 at 1202, Pain, STAT Given 02/17/2012 8:35 [...] mg, oral, DAILY, First dose on Roya 02/12/12 at 1430, Until Discontinued, Routine 0911 (Given - Provider: Sarai Mirza RN) 09 (Given - Provider: Anabela Mendoza) 0835 (Given - Provider: Ronit Guevara, DAVID) docusate sodium (COLACE) capsule 200 mg(Linked Group [...] Roya 02/12/12 at 2100, Until Discontinued, Routine 0911 (Given - Provider: Sarai Mirza RN)2200 (Given - Provider: Vincenzo Waddell RN) 09 (Given - Provider: Anabela Mendoza)2029 (Given - Provider: Sonido Chowdhury, DAVID) 0834 (Given - Provider: Ronit Guevara, DAVID) senna (SENOKOT) tablet 2 Tab (CANCELED) 2 Tablet, oral, 2 TIMES DAILY, First dose on 6/13/12 at 2100, Until Discontinued, STAT 0911 (Given [...] Pain, STAT 0115 (Given - Provider: Argelia Soler RN)1553 (Given - Provider: Sarai Mirza, RN)2355 (Given [...] Ordered Date labetalol (TRANDATE) injection 10 mg 01/29 acetaminophen (TYLENOL) tablet 650 mg 1 [...] 02/17/2012 documented in this encounter Care Teams Sliding Joint Maker Relationship Specialty Start Date End Date Giorgi Mueller MD [address] [place] [address] PCP - General 02/11/12 06/06/15 documented as of this encounter
--- OUTSIDE RECORDS SUMMARY | 2024-09-05 16:11 | XMS_ITS | Encounter Summary ---
Author Organization [facility] Address [address] [place] [address] Care Team Providers Care Varnish Filterer Name Role Phone Unavailable Primary Care Provider Unavailabl e Encounter Details Date Type Department Care Team (Late st Contact Info) Description 01/11/2007 Before PRISM Converted Visit (Maple) [facility] - Maple conversion [address] [place] [address] Ernesto Meng MD PhD [address] [place] [address] [address] [place] [phone] Social History Tobacco Use Types Packs/Day Years [...] 01/13/2007 11:54 Darin Meng MD,PHDABPN Certified in NeurologyRoswell Park Comprehensive Cancer Centeran Board Clinical NeurophysiologyErnesto Meng MD,PHD Ernesto Meng MD,PHD ABPN Certified in Neurology [place] Board Clinical Neurophysiology - Ernesto Meng MD,PHD A - stephanie Job ID: [id number] Document ID: [id number] cc: Giorgi Morales MD documented in this encounter Plan of Treatment Not on file documented as of this encounter Visit Diagnoses Not on filedocumented in this encounter
--- OUTSIDE RECORDS SUMMARY | 2024-09-05 16:11 | XMS_ITS | Encounter Summary ---
Author Organization [facility] Address [address] [place] [address] Care Team Providers Care Wool Hat Finisher Name Role Phone John Cee MD Primary Care Provider Unav ailable Reason for Visit * Reason Onset Date Comments Medications Refill 05/24/2018 Encounter Details Date Type Department Care Team (Late st Contact Info) Description 05/24/2018 Refill [facility] Ophthalmology - [address] [address] Eduardo Ha MD [address] [place] [address], [address] [place] [phone] Medications Refill Social History Tobacco Use Types [...] Refill Medication(s) Requested: brimonidine, latanoprost Pharmacy: [facility] Is patient out of medication? Yes 30 [...] documented as of this encounter Care Teams Wool Hat Finisher Relationship Specialty Start Date End Date John Cee MD PCP - General 06/07/15 documented as of this encounter
--- OUTSIDE RECORDS SUMMARY | 2024-09-05 16:11 | XMS_ITS | Encounter Summary ---
Author Organization [facility] Address [address] [place] [address] Care Team Providers Care Press Hand Supervisor Name Role Phone John Cee MD [...] Info) Description 07/17/2017 9:45 EST Office Visit [facility] Ophthalmology - [address] [phone] Eduardo Ha MD [address] [facility], [address] [place] [address] Discharge Disposition: Auto Discharge Social [...] Endocrine: NL Hematologic: NL Immunologic: Drug Allergy Mail Sorting Supervisor: Exposures: None Other: Attestation: Allergies include: Penicillins [...] -- if no response could add micropulse CRITICAL CARE NURSE diode as short-term control, otherwise would need tube shunt Good IOP after tap and acetazolamide -- plan: 1. Add acetazolamide 500 mg PO BID 2. Cont dorz-champ OS BID, brim OS TID, latan OS QHS, oflox OS QID 3. F/U ~5 D, call sooner for worsening problems ON: ~0.5 / XX Tmax: 39 CCT: Gonio: Open to SS-CBB / [...] Eye: Left Indication: Ocular hypertension Surgeon: Eduardo Ha MD Oracle Database Administrator: Yahir Greco Complication: None Jimmy Gil consented [...] may reflect changes made after this encounter. lisinopril (PRINIVIL, ZESTRIL) 5 mg tablet Take 5 mg by mouth daily. latanoprost (XALATAN) 0.005 % ophthalmic solution Place 1 Drop into the left eye at bedtime. 08/26/2017 brimonidine (ALPHAGAN) 0.15 % ophthalmic solution Place 1 Drop into the left eye 2 times daily. 08/26/2017 DORZOLAMIDE HCL/TIMOLOL MALEAT (DORZOLAMIDE-PRISCILLA LOL OPHTHALMIC) Place 1 Drop into the left [...] drusen no view Vessels Normal Care Teams Press Hand Supervisor Relationship Specialty Start Date End Date John Cee MD PCP - General 06/07/15 documented as of this encounter
--- OUTSIDE RECORDS SUMMARY | 2024-09-05 16:11 | XMS_ITS | Encounter Summary ---
Author Organization [facility] Address [address] [place] [address] Care Team Providers Care Laborer Livestock Name Role Phone John Cee MD Primary Care Provider Unav ailable Encounter Details Date Type Department Care Team (Latest Contact Info) Description 06/12/2015 10:52 EDT - 06/12/2015 16:19 EDT Hospital Encounter [facility] Perioperative Services- [place] [address] [place] [address] Eduardo Nicholson MD [address] [place] [phone] Macular pucker, left eye (Primary Dx) [...] 0939 EDT Height 171.5 cm (5' 7.5) 06/07/2015938 EDT Body Mass Index 27.78 06/07/2015938 EDT documented in this encounter Mental Status * Because of a physical, mental, or emotional condition, do you have serious difficulty concentrating, remembering, or making decisions? (5 years old or older) Answer Entry Date Author Yes 02/11/2012 21:02 EDT Dennis Mckeon RN documented in this encounter Discharge Instructions * Discharge Instructions* Lyn Eduardo Cee - 06/12/2015 15:38 EDT Leave your eye patch and shield - if any were placed by your surgeon - in place. For pain, you may use Tylenol (acetominophen) and/or Advil (ibuprofen) or other similar non-prescription, [id number] medications in doses as noted on manufacturers' [...] questions about use of these medications, call [facility] at [phone]. For showering, avoid directing your face into the stream of the shower head. Do not worry about a small amount of water and/or soap that gets into your eye patch and/or eye during shampooing, face washing, etc. Do not lift anything heavier than a light bag of groceries and, until notified by your surgeon, do not exercise. Follow-up tomorrow at [facility], [address] [place] [address], [address] [facility], [place], any time between 10 AM and 2 PM. (That location is up the block from [employer] at the corner of [facility] [address] and [facility], and across the street from [email or web address] and from [employer].) Atthat appointment, your surgeon and the [facility] staff will review post-operative instructions that [...] this encounter Medications at Time of Discharge atenolol (TENORMIN) 25 mg tablet Take 25 mg by mouth daily. VIT C/VIT E/LUTEIN/MIN/OMEGA -3 (OCUVITE ORAL) Take by mouth daily documented as of this encounter Discharge Disposition Disposition Code Departure Means Destination Home or Self Care documented in this encounter Progress Notes * Nell Genao RN - 06/07/2015 0923 EDT Jimmy Gil has been instructed as [...] Eduardo Nicholson 06/12/2015 14:20 Source Note - DIMETHYLANILINE SULFATOR OPERATOR, JEIMY 2 - 06/11/2015 11:45 EDT documented in this encounter OR Notes * OR Surgeon - Eduardo Nicholson - 06/13/2015 1457 EDT OPERATIVE REPORT SERVICE DATE: 06/12/2015 PREOPERATIVE DIAGNOSIS: Macular pucker, left eye. POSTOPERATIVE DIAGNOSIS: Macular pucker, left eye. PROCEDURE: Three-port 25-gauge pars plana vitrectomy with membrane peeling, left eye. SURGEON: Eduardo Nicholson MD CONTINUITY EDITOR: KIRSTEN Francisco ANESTHESIA: Monitored anesthesia care with [...] AM / Eduardo Nicholson MD en Confirmation: [id number] Dictation ID: [id number] cc:John Beard OD * OR Surgeon - Eduardo Nicholson - 06/12/2015 1536 EDT Brief Op Note Pre-op Diagnosis(es): macular pucker left eye Post-op Diagnosis(es): same Procedure(s): 25-gauge, 3-port pars plana vitrectomy with membrane peeling left eye Surgeon: Lyn Category Specialist: Lorie Anesthesia: MAC/local IV Fluid: per Anesthesia [...] SCANNED (06/15/2015 9:22 EDT) 06/15/2015 9:22 EDT us Scan 2 Policy Writer PROCEDURE/MINOR SURGICAL OR DERABLES Final Result * ECG REPORT - SCANNED (06/11/2015 11:45 EDT) 06/11/2015 11:4 5 EDT us Scan 2 Policy Writer PROCEDURE/MINOR SURGICAL OR DERABLES Final Result documented in this encounter Visit [...] may reflect changes made after this encounter. VIT C/VIT E/LUTEIN/MIN/OMEGA -3 (OCUVITE ORAL) Take by mouth daily added in this encounter Active and Recently Administered Medications Times are shown in EDT. Continuous Medication Order 06/10/2015 06/11/2015 06/12/2015 lactated ringers (LR) infusion (CANCELED) 30 mL/hr, intravenous, CONTINUOUS, Starting on Thu06/12/15 at 1330, Until Thu06/12/15 at 1824, Routine, Pre-Op DOS Rx Approved 1316 (New Bag - Prov ider: Katey Perkins, DAVID)1540 (Completed - Provider: Marika Barber RN) PRN [...] Trish Karimi RN)1410 (Given - Provider: Trish Karimi, DAVID)1415 (Given - Provider: Trish Karimi, DAVID) tropicamide (MYDRIACYL) 1 % ophthalmic solution 1 Drop (COMPLETED) 1 Drop, left eye, PRE-OP Q 5 MINUTES, 3 doses, Starting on Thu06/12/15 at 1308, Until Thu06/12/15 at 1415, vitreoretinal surgery, Routine, Pre-Op DOS Rx Approved 1404 (Given - Provid er: Trish Karimi RN)1410 (Given - Provider: Trish Karimi, DAVID)1415 (Given - Provider: Trish Karimi, DAVID) documented in this encounter Orders Medications Ordered [...] 06/12/2015 documented in this encounter Care Teams Laborer Livestock Relationship Specialty Start Date End Date John Cee MD PCP - General 06/07/15 documented as of this encounter
--- OUTSIDE RECORDS SUMMARY | 2024-09-05 16:11 | XMS_ITS | Encounter Summary ---
Author Organization [facility] Address [address] [place] [address] Care Team Providers Care Lead Database Administrator Name Role Phone John Cee MD Primary [...] Info) Description 01/14/2018 10:15 EDT Office Visit [facility] Ophthalmology - [address] [address] Eduardo Ha MD [address] [facility], [address] [place] [address] Discharge Disposition: Auto Discharge Social [...] Cap by mouth daily. Take in the spinning and winding supervisor. 10 Cap 01/14/2018 01/10/2019 latanoprost (XALATAN) 0.005 [...] Psychiatric: Endocrine: NL Hematologic: NL Immunologic: NL Hand Alterations Tailor: Exposures: None Other: Attestation: Allergies include: Penicillins Patient Active Problem List Diagnosis ??? Fall ??? Fracture of cervical vertebra ([facility]) ??? Fracture of left clavicle ??? Macular [...] Cataract ??? Glaucoma ??? Hypertension ??? Seizure ([facility]) November 2006 grand mal seizure, witnessed by [...] Normal attenuated Refraction Wearing Rx Sphere Cylinder Brule Add Right +0.50 +1.00 008 +3.00 Left +0.50 +0.75 005 +3.00 Type: Bifocal IMPRESSION & PLAN: 1. Neovascular glaucoma of left eye, indeterminate stage -- presented to [facility] in neovascular angle closure 07/14/17 -- now 2 D s/p Avastin OS with renewed OHT, IOP to 50s at optometry yesterday,IOP today -- mild NVI today, angle appears mainly [...] Vessels Normal attenuated Wearing Rx Sphere Cylinder Brule Add Right eye +0.50 +1.00 008 +3.00 Left eye +0.50 +0.75 005 +3.00 Type: Bifocal Care Teams Lead Database Administrator Relationship Specialty Start Date End Date John Cee MD PCP - General 06/07/15 documented as of this encounter
[2024-09-05 17:57] LABS: Abs Immature Grans 0.01 10^3/uL (0.0-0.06); Absolute Basophil Count 0.02 10^3/uL (0.0-0.2); Absolute Eosinophil Count 0.06 10^3/uL (0.0-0.7); Absolute Monocyte Count 0.42 10^3/uL (0.1-0.8); Absolute Neutrophil Count 1.75 10^3/uL (1.2-6.7); Basophils % 0.6 %; Eosinophils % 1.8 %; Immature Grans % 0.3 %; Lymphocytes % 32.7 %; MCH 28.6 pg (27.0-33.0); MCHC 32.4 % (32.0-36.0); MCV 88 fL (80-95); MPV 10.5 fL (8.0-11.0); Monocytes % 12.5 %; Neutrophils % 52.1 %; Platelet Count 148 10^3/uL (130-400); RBC 4.19 10^6/uL (4.36-5.78); RDW 13.7 % (11.8-14.1); WBC 3.36 10^3/uL (4.4-10.8)
[2024-09-05 18:24] LABS: Vitamin D 25 Total 26.5 ng/mL (30-100)
== END 2024-09-05 16:09 | disposition home or self-care (01) ==
LOC: NCHCN 16:08
PROVIDERS: PCP Internal Medicine; Visit Provider Internal Medicine
DX: E46 Unspecified protein-calorie malnutrition (principal)
CPT/HCPCS: 82306; 85025

== ENCOUNTER 2024-11-29 16:54 | Outpatient (REF) | payer MEDICARE, MEDICAID, SELFPAY ==
[2024-11-29 16:34] LABS: Abs Immature Grans 0.01 10^3/uL (0.0-0.06); Absolute Basophil Count 0.01 10^3/uL (0.0-0.2); Absolute Eosinophil Count 0.22 10^3/uL (0.0-0.7); Absolute Lymphocyte Count 0.89 10^3/uL (1.2-3.4); Absolute Monocyte Count 0.41 10^3/uL (0.1-0.8); Absolute Neutrophil Count 1.38 10^3/uL (1.2-6.7); Basophils % 0.3 %; Eosinophils % 7.5 %; HGB 11.4 g/dL (13.5-17.5); Immature Grans % 0.3 %; Lymphocytes % 30.5 %; MCH 28.4 pg (27.0-33.0); MCHC 32.6 % (32.0-36.0); MCV 87 fL (80-95); MPV 10.4 fL (8.0-11.0); Neutrophils % 47.4 %; Platelet Count 119 10^3/uL (130-400); RBC 4.02 10^6/uL (4.36-5.78); RDW 13.4 % (11.8-14.1); RDW-SD 42.4 fL; WBC 2.92 10^3/uL (4.4-10.8)
[2024-11-29 16:49] LABS: ALT 15 U/L (16-63); AST 13 U/L (15-37); Albumin 3.5 g/dL (3.4-5.0); Alkaline Phosphatase 72 U/L (46-116); Anion Gap 8.6 mmol/L (3-11); BUN 12 mg/dL (7-18); Bilirubin, Total 0.3 mg/dL (0.2-1.0); CO2 29.4 mmol/L (21.0-32.0); CREATININE 0.9 mg/dL (0.70-1.30); Calcium 8.5 mg/dL (8.5-10.1); Chloride 106 mmol/L (98-107); Estimated GFR 84.74 (mL/min/1.73m2); Glucose 138 mg/dL (74-106); Potassium 3.8 mmol/L (3.5-5.1); Sodium 144 mmol/L (136-145); Total Protein 6.8 g/dL (6.4-8.2)
== END 2024-11-29 16:55 | disposition home or self-care (01) ==
LOC: NCHCN 16:54
PROVIDERS: PCP Internal Medicine; Visit Provider Internal Medicine
DX: E46 Unspecified protein-calorie malnutrition (principal); D52.9 Folate deficiency anemia, unspecified; I10 Essential (primary) hypertension
CPT/HCPCS: 80053; 85025; 87086

== ENCOUNTER 2025-03-28 16:32 | Outpatient (REF) | payer MEDICARE, MEDICAID, SELFPAY ==
[2025-03-28 20:51] LABS: Abs Immature Grans 0.02 10^3/uL (0.0-0.06); HCT 38.6 % (40.0-50.0); HGB 12.5 g/dL (13.5-17.5); Immature Grans % 0.5 %; MCH 28.2 pg (27.0-33.0); MCHC 32.4 % (32.0-36.0); MCV 87 fL (80-95); MPV 10.6 fL (8.0-11.0); Platelet Count 128 10^3/uL (130-400); RBC 4.43 10^6/uL (4.36-5.78); RDW 13.9 % (11.8-14.1); RDW-SD 44.7 fL; WBC 3.93 10^3/uL (4.4-10.8)
[2025-03-28 21:01] LABS: ALT 20 U/L (16-63); AST 17 U/L (15-37); Albumin 3.7 g/dL (3.4-5.0); Alkaline Phosphatase 76 U/L (46-116); Anion Gap 6.4 mmol/L (3-11); BUN 12 mg/dL (7-18); Bilirubin, Total 0.4 mg/dL (0.2-1.0); CO2 31.6 mmol/L (21.0-32.0); Calcium 8.4 mg/dL (8.5-10.1); Chloride 105 mmol/L (98-107); Estimated GFR 91.42 (mL/min/1.73m2); Glucose 83 mg/dL (74-106); Potassium 4.2 mmol/L (3.5-5.1); Sodium 143 mmol/L (136-145); Total Protein 6.9 g/dL (6.4-8.2)
[2025-03-28 21:52] LABS: Hemoglobin A1C 5.5 % (<5.7)
== END 2025-03-28 16:33 | disposition home or self-care (01) ==
LOC: NCHCN 16:32
PROVIDERS: PCP Internal Medicine; Visit Provider Internal Medicine
DX: I10 Essential (primary) hypertension (principal)
CPT/HCPCS: 80053; 83036; 85025

== ENCOUNTER 2025-05-02 17:45 | Outpatient (REF) | payer MEDICARE, MEDICAID, SELFPAY ==
[2025-05-02 18:27] LABS: Abs Immature Grans 0.02 10^3/uL (0.0-0.06); HCT 40.0 % (40.0-50.0); HGB 12.8 g/dL (13.5-17.5); Immature Grans % 0.5 %; MCH 28.2 pg (27.0-33.0); MCHC 32.0 % (32.0-36.0); MCV 88 fL (80-95); MPV 10.5 fL (8.0-11.0); Platelet Count 139 10^3/uL (130-400); RBC 4.54 10^6/uL (4.36-5.78); RDW 13.7 % (11.8-14.1); RDW-SD 44.2 fL; WBC 3.74 10^3/uL (4.4-10.8)
[2025-05-02 18:59] LABS: Vitamin D 25 Total 38 ng/mL (30-100)
== END 2025-05-02 17:46 | disposition home or self-care (01) ==
LOC: LBN 17:45
PROVIDERS: PCP Internal Medicine; Visit Provider Internal Medicine
DX: E55.9 Vitamin D deficiency, unspecified (principal); D72.819 Decreased white blood cell count, unspecified
CPT/HCPCS: 82306; 85025